=== PATIENT | male | born 1950 | race Caucasian/White ===

== ENCOUNTER 2021-08-26 12:11 | Inpatient (IN) | payer MEDICARE, SELFPAY ==
[2021-08-26] VITALS (16 sets, daily range): BP systolic 127–148; BP diastolic 69–98; PULSE 68–112; RESP 20–28; TEMP 36.6–36.7; O2SAT 92–99; BMI 32.5; BMI 33.5
--- NOTE | 2021-08-26 12:19 | XR_ITS ---
PROCEDURE INFORMATION: Exam: XR Chest Exam date and time: 08/26/2021 12:19 PM Age: 71 years old Clinical indication: Shortness of breath; Prior surgery; Surgery date: 6+ months; Surgery type: Cabg in 1998, defibrillator placed as well. ; Additional info: SOB TECHNIQUE: Imaging protocol: XR of the chest. Views: 1 view. COMPARISON: No relevant prior studies available. FINDINGS: Tubes, catheters and devices: Cardiac rhythm maintenance device is in place. Lungs: Bibasilar airspace opacities, favored to reflect atelectasis. Pleural spaces: No pleural effusion or pneumothorax. Heart/Mediastinum: Cardiomegaly. Bones/joints: Unremarkable. IMPRESSION: Cardiomegaly with bibasilar atelectasis.
--- NOTE | 2021-08-26 12:44 | ECG_ITS ---
APPROVED REPORT Exam: Resting ECG HR:104 bpm ECG Measurements Heart Rate 104 AXES QRSd 114 QRS 92 QT 350 T 43 QTc 460 Conclusion Electronic ventricular pacemaker Electronically signed by : Khanh Scott MD 08/26/2021 20:29:28
[2021-08-26 12:45] LABS: Basophils # 0.1 K/mm3 (0-0.2); Basophils % 0.7 % (0.1-2.0); Hematocrit 45.1 % (42.0-52.0); Hemoglobin 13.5 g/dL (14.1-18.0); Lymphocytes # 1.1 K/mm3 (0.7-4.5); Lymphocytes % 14.8 % (10-50); Mean Corpuscular Hemoglobin 30.9 pg (27.0-31.2); Mean Corpuscular Volume 102.9 fl (80-94); Mean Platelet Volume 8.7 fl (7.4-10.4); Monocytes # 0.6 K/mm3 (0.1-1.0); Monocytes % 8.1 % (1.7-9.3); Neutrophils # 5.7 K/mm3 (1.8-7.8); Neutrophils % 76.4 % (37.0-80.0); Platelet Count 189 K/mm3 (142-424); Red Blood Count 4.39 M/mm3 (4.60-6.20); Red Cell Distribution Width 18.2 % (11.5-17.5); White Blood Count 7.5 K/mm3 (4.8-10.8)
[2021-08-26 12:48] LABS: Chloride 93 mmol/L (98-107); Potassium 4.7 mmoL/L (3.5-5.1); Sodium 135 mmol/L (136-145)
[2021-08-26 12:51] LABS: Alanine Aminotransferase 250 U/L (12-78); Albumin Level 4.4 g/dl (3.5-5.0); Albumin/Globulin Ratio 1.2 (1.1-1.8); Alkaline Phosphatase 107 U/L (38-126); Anion Gap 16.7 mEq/L (5-15); Aspartate Amino Transferase 530 U/L (17-59); Bilirubin,Total 3.4 mg/dl (0.2-1.3); Blood Urea Nitrogen 17 mg/dl (9-20); Calcium 9.1 mg/dl (8.4-10.2); Carbon Dioxide 30 mmol/L (22.0-30.0); Creatinine Clearance Estimated 103 mL/min (50-200); Estimated Glomerular Filt Rate 111 ml/min (>60); GFR (African American) 134 ML/MIN (>60); Globulin 3.6 g/dL (1.3-3.2); Glucose 155 mg/dl (74-100); Lactic Acid 3.3 mmol/L (0.7-2.1)
[2021-08-26 13:00] LABS: NT Pro Brain Natriuretic Pep. 3400 pg/mL (0-125)
[2021-08-26 13:01] LABS: Coronavirus 19, PCR Not Detected (NotDetected); Influenza A, PCR Not Detected (NotDetected); Influenza B, PCR Not Detected (NotDetected)
[2021-08-26 13:04] LABS: Troponin I 0.06 ng/ml (0.00-0.034)
--- NOTE | 2021-08-26 14:32 | HMH.EDGENADL ---
ED Disposition Clinical Impression: Acute exacerbation of chronic obstructive airways disease Disposition: Admitted As Inpatient Condition on Discharge: Fair - Critical Care Critical Care Time: No Attestation: On 08/26/21, the high probability of a clinically significant, sudden or life threatening deterioration of the following system(s) required my full and direct attention, intervention and personal management. The time I documented below is in addition to time spent performing reported procedures but includes the following listed in this critical care notation. Medical Decision Making - Carl Inquiry Pt receiving controlled substance: No Vital Signs: 08/26/21 12:11 Temperature 98 F Temperature Source Oral Pulse Rate [Radial] 108 H Respiratory Rate 28 H Blood Pressure [Right Arm] 138/72 Blood Pressure Mean [Right Arm] 94 Blood Pressure Position [Right Arm] Sitting 02 Sat by Pulse Oximetry 94 L Oxygen Delivery Method Nasal Cannula Oxygen Flow Rate (LPM) 4 - Lab Data Lab Results 08/26/21 12:20: WBC 7.5, RBC 4.39 L, Hgb 13.5 L, Hct 45.1, MCV 102.9 H, MCH 30.9, MCHC 30.0 L, RDW 18.2 H, Plt Count 189, MPV 8.7, Neut % (Auto) 76.4, Lymph % (Auto) 14.8, [place] % (Auto) 8.1, Eos % (Auto) 0.0 L, Baso % (Auto) 0.7, Neut # (Auto) 5.7, Lymph # (Auto) 1.1, [place] # (Auto) 0.6, Eos # (Auto) 0.0, Baso # (Auto) 0.1 08/26/21 12:20: Sodium 135 L, Potassium 4.7, Chloride 93 L, Carbon Dioxide 30, Anion Gap 16.7 H, BUN 17, Creatinine 0.70, Estimated Creat Clear 103, Estimated GFR 111, Est GFR ( Amer) 134, Glucose 155 H, Calcium 9.1, Total Bilirubin 3.4 H, AST 530 H*, ALT 250 H, Alkaline Phosphatase 107, Troponin I 0.06 H, Total Protein 8.0, Albumin 4.4, Globulin 3.6 H, Albumin/Globulin Ratio 1.2 08/26/21 12:20: Lactate 3.3 H 08/26/21 12:20: NT-Pro-B Natriuret Pep 3400 H 08/26/21 12:20: SARS-CoV-2 (PCR) Not detected, Influenza A Untype (PCR) Not detected, Influenza Type B (PCR) Not detected 08/26/21 15:05: Troponin I 0.06 H Result diagrams: 08/26/21 12:20 08/26/21 12:20 Orders (Tests/Meds): ED MEDICATIONS Generic Name Dose Route Start Last Admin Trade Name Freq PRN Reason Stop Dose Admin Ceftriaxone Sodium 2 gm/ 100 mls @ 200 mls/hr 08/26/21 15:15 08/26/21 15:27 Sodium Chloride IV 09/09/21 15:14 200 mls/hr Q24H KEELEY Administration Azithromycin 500 mg/ Sodium 250 mls @ 250 mls/hr 08/26/21 15:15 08/26/21 15:41 Chloride IV 09/09/21 15:14 250 mls/hr Q24H KEELEY Administration Sodium Chloride 500 mls @ 999 mls/hr 08/26/21 16:30 08/26/21 16:43 Sod Chlor 0.9% 1000ml Bag IV 08/26/21 17:00 Not Given .Q31M KEELEY Discontinued Medications Generic Name Dose Route Start Last Admin Trade Name Freq PRN Reason Stop Dose Admin Albuterol/Ipratropium 3 ml 08/26/21 13:29 08/26/21 13:47 Ipratropium/Albuterol 3 Ml Neb IH 08/26/21 13:30 3 ml ONCE ONE Administration Dexamethasone Sodium Phosphate 8 mg 08/26/21 13:28 08/26/21 13:39 Dexamethasone 4mg/Ml 1ml Vial IV 08/26/21 13:29 8 mg ONCE ONE Administration Sodium Chloride 500 mls @ 999 mls/hr 08/26/21 13:30 08/26/21 13:39 Sod Chlor 0.9% 1000ml Bag IV 08/26/21 14:00 999 mls/hr .Q31M KEELEY Administration ORDERS Category Date Time Status Troponin I Q3H Lab 08/26/21 18:30 Ordered Blood Culture Stat Micro 08/26/21 12:20 Received Medical Decision Narrative: In summary, the patient is a 69-year-old male with metabolic syndrome who presents for evaluation of 1 week of progressive difficulty breathing, increased cough and sputum production. He is in no acute distress, afebrile and hemodynamically stable, nontoxic in appearance. Physical exam demonstrates comfortable appearing male with increased work of breathing, tachypnea, 3-5 word dyspnea, oxygen saturation in the upper 80s on room air, prolonged expiratory phase and wheezing, normal cardiac exam, no significant extremity edema, soft and nontender abdomen. Differe
[2021-08-26 16:17] LABS: Troponin I 0.06 ng/ml (0.00-0.034)
[2021-08-26 16:31] LABS: Reflex Lactic Add Lactic Reflex
--- NOTE | 2021-08-26 16:31 | PC.NURSE ---
report called to floor
[2021-08-26 17:10] LABS: Lactic Acid Follow Up (RFLX 1) 1.8 mmol/L (0.7-2.1)
[2021-08-27] VITALS (9 sets, daily range): BP systolic 128–143; BP diastolic 76–91; PULSE 90–101; RESP 19–22; TEMP 36.6–37.2; O2SAT 94–97; BMI 33.5; BMI 33.6
--- NOTE | 2021-08-27 04:10 | PC.NURSE ---
Addendum entered by Lashay Zuñiga RN 08/27/21 04:45: Patient hasn't rested well this shift. He states I haven't slept for the last 4 nights . Patient has remained up and down on the side of the bed all night. He has a intermitting cough that is non-productive. Original Note: Patient is A&O x4. Patient is on 2LNC. Scattered inspiratory and expiratory wheezing is noted in bilateral lung sounds, patient has inspiratory and expiratory rhonchi noted throughout. Patient has voiced no complaints to this RN. Patient reports last BM on 08/25. Patient has +1 pitting edema noted in bilateral lower extremities. VSS, call light within reach, will continue to monitor.
--- NOTE | 2021-08-27 07:23 | HMH.PHAVTE ---
[facility] Pharmacy VTE Monitoring - Patient Demographics Admission date: 08/26/21 Report Date: 08/27/21 Time: 07:23 Allergies/Adverse Reactions: Patient Allergies No Known Allergies Allergy (Verified 08/26/21 12:17) Height: 1.8 m Weight: 108.862 kg Patient Problems: Current Active Problems Acute exacerbation of chronic obstructive airways disease (Acute) - VTE Risk Labs: VTE Related Lab Results Hgb 13.5 g/dL (14.1-18.0) L 08/26/21 12:20 Hct 45.1 % (42.0-52.0) 08/26/21 12:20 Plt Count 189 K/mm3 (142-424) 08/26/21 12:20 BUN 17 mg/dl (9-20) 08/26/21 12:20 Creatinine 0.70 mg/dl (0.66-1.25) 08/26/21 12:20 Estimated Creat Clear 103 mL/min (50-200) 08/26/21 12:20 - Prophylaxis VTE Prophylaxis Ordered?: Yes Types of VTE Prophylaxis: TEDS Knee High Location of Applied Device: Bilateral Lower Extremeties
--- NOTE | 2021-08-27 07:41 | HMH.PHAINT ---
MEDICATION RECONCILIATION COMPLETE USING PATIENT RX BOTTLES BROUGHT IN
--- NOTE | 2021-08-27 10:23 | HMH.CNCARD ---
History of Present Illness Consult date: 08/27/21 Requesting physician: Jimbo Carlos Consult reason: shortness of breath Chief complaint: SOA Additional Medical History:: 1. Coronary artery disease A. History of 6 vessel bypass 1998, [place], [place] at [facility] 2. Ischemic cardiomyopathy A. Ejection fraction approximately 20% B. Dual-chamber AICD implantation approximately 2007 with battery change in 2015 with a [place] generator model CD 2357-40C, Dr. Krystle Macias 3. Tobacco use, continued, 1 to 2 packs/day for greater than 40 years 4. Diabetes mellitus, diagnosed approximately 2017 5. History of bilateral knee replacements 6. Hypertension 7. Hyperlipidemia 8. Obstructive sleep apnea, CPAP use History of present illness: 71-year-old white male with coronary artery disease, ischemic cardiomyopathy and AICD as noted above presented to the emergency department for increasing shortness of breath over the last 7 to 14 days which coincided with receiving a flu shot on 08/16/2021. Patient denies any chest pain, pressure or tightness but has noticed a significant decrease in his exercise ability with an increase in his shortness of breath and lower extremity edema. ER work-up revealed no acute EKG changes (V. Pacing) but with mildly elevated troponin and abnormal chest x-ray suggestive of bilateral pulmonary infiltrates with cardiomegaly. Patient is known to have an ischemic cardiomyopathy with ejection fraction about 20%. Patient was admitted for further evaluation and treatment. Cardiology consulted for evaluation recommendations. He is a former [employer] and is followed by the [facility] in [place] for most of his care. No recent hospitalizations in the last year per patient. Patient lives with his daughter. [facility] History Medical History: Reports:: Congestive Heart Failure, Diabetes Mellitus Type 2 Denies:: Cancer, Diabetes Mellitus Type 1, MRSA *Have you ever received a pneumonia vaccine?: Yes *Have you received a flu vaccine this season?: Yes Other Medical History: Reports: Arthritis Laterality Cases: Bilateral: Total Knee Replacement Other Surgeries: Yes: Open Heart Surgery Amputation: No - *Social History Last grade of school completed: 9th or 10th Smoking Status: Current every day smoker Tobacco Type: cigarettes # Packs/Day (cigarettes): 2 Alcohol Intake: never *Occupational Status:: retired, disabled Household Members: children *Travel in the last 8 weeks: None Family Hx:: No significant family history Meds Home Medications Medication Instructions Recorded Confirmed Type Albuterol Sulfate [Albuterol 1 puff IH Q4HP PRN 08/26/21 08/27/21 History Sulfate Hfa] Aspirin [Aspirin 81mg EC Tab] 81 mg PO DAILY 08/26/21 08/27/21 History Atorvastatin Calcium [Lipitor 80mg 80 mg PO DAILY 08/26/21 08/27/21 History Tab] Buspirone HCl [Buspar 10mg 20 mg PO TID 08/26/21 08/27/21 History tablet] Duloxetine HCl 120 mg PO DAILY 08/26/21 08/27/21 History Empagliflozin [Jardiance] 10 mg PO DAILY 08/26/21 08/27/21 History Famotidine [Heartburn Prevention] 20 mg PO HS 08/26/21 08/27/21 History Furosemide [Furosemide 20mg Tab*] 20 mg PO DAILY 08/26/21 08/27/21 History Gabapentin 800 mg PO HS 08/26/21 08/27/21 History Metformin HCl [Metformin 1000mg 1,000 mg PO BIDWMEAL 08/26/21 08/27/21 History Tablets] Pantoprazole Sodium 20 mg PO DAILY 08/26/21 08/27/21 History Prazosin HCl 15 mg PO HS 08/26/21 08/27/21 History Sennosides/Docusate Sodium 1 each PO BID 08/26/21 08/27/21 History [Docusate Sodium-Sennosides Tab] Tiotropium Br/Olodaterol HCl 1 inh IH DAILY 08/26/21 08/27/21 History [Stiolto Respimat Inhal [place]] Tramadol HCl [Tramadol 50mg 100 mg PO DAILYP PRN 08/26/21 08/27/21 History Tab] Trazodone HCl 200 mg PO HS 08/26/21 08/27/21 History carvediloL [Carvedilol 25mg Tab] 25 mg PO BID 08/26/21 08/27/21 History glipiZIDE [Glipizide] 10 mg PO BID 08/26/21 08/27/21 History lisinopr
--- NOTE | 2021-08-27 10:39 | CT_ITS ---
PROCEDURE: CT ABDOMEN PELVIS W CON CLINICAL INDICATION: abd pain COMPARISON: No exams were available for comparison TECHNIQUE: IV Contrast: 75ML Isovue 370 Oral Contrast None Axial images obtained with sagittal and coronal reformats. All CT scans at the facility use one or more dose reduction, viz: automated exposure control, ma/kV adjustment per patient size (including targeted exams where dose is matched to indication, i.e. head), or iterative reconstruction technique. FINDINGS: LOWER THORAX: Cardiomegaly. ABDOMEN & PELVIS: Hepatomegaly. There is calcific atherosclerosis of the aorta and branch vessels. The celiac SMA and THOMAS are patent. There is a 3.1 centimeter abdominal aortic aneurysm. Kidneys and spleen are unremarkable. There is thickening of the left adrenal gland. Gallbladder appears unremarkable. Appendix appears unremarkable. Bladder is distended but otherwise unremarkable. The stomach appears unremarkable. There is wall thickening of the duodenum and proximal jejunum with fluid and fecalization of the small bowel. There is no definite free intraperitoneal fluid or air. The colon appears unremarkable. The appendix appears unremarkable. The remainder of the small bowel appears unremarkable. There is mild degenerative change of the osseous structures. IMPRESSION: 1. Wall thickening of duodenum and proximal jejunum with fluid and fecalization of the small bowel. This could represent a developing small bowel obstruction, partial small bowel obstruction, Crohn's disease, or infectious enteritis. 2. Thickening of the left adrenal gland. Further evaluation could be obtained with CT adrenal mass protocol or MRI to exclude a mass. 3. Vascular disease with 3.1 centimeter abdominal aortic aneurysm. 4. Hepatomegaly. Findings discussed with Dr. Oconnell at 4:47 p.m. Dictated by: Kelsi Fletcher MD 08/27/2021 16:48 Kelsi Fletcher MD in [place] 08/27/2021 16:48
[2021-08-27 10:43] LABS: Basophils % 0.2 % (0.1-2.0); Eosinophils % 0.4 % (0.1-12.0); Hematocrit 41.5 % (42.0-52.0); Hemoglobin 12.9 g/dL (14.1-18.0); Lymphocytes # 1.4 K/mm3 (0.7-4.5); Lymphocytes % 14.9 % (10-50); Mean Corpuscular Hemoglobin 31.4 pg (27.0-31.2); Mean Corpuscular Volume 101.3 fl (80-94); Mean Platelet Volume 9.1 fl (7.4-10.4); Monocytes # 0.9 K/mm3 (0.1-1.0); Monocytes % 9.6 % (1.7-9.3); Neutrophils # 7.1 K/mm3 (1.8-7.8); Neutrophils % 74.9 % (37.0-80.0); Platelet Count 201 K/mm3 (142-424); Red Cell Distribution Width 18.3 % (11.5-17.5); White Blood Count 9.4 K/mm3 (4.8-10.8)
[2021-08-27 10:50] LABS: Chloride 98 mmol/L (98-107); Potassium 5.1 mmoL/L (3.5-5.1); Sodium 132 mmol/L (136-145)
[2021-08-27 10:53] LABS: Alanine Aminotransferase 546 U/L (12-78); Albumin/Globulin Ratio 1.1 (1.1-1.8); Alkaline Phosphatase 98 U/L (38-126); Anion Gap 14.1 mEq/L (5-15); Bilirubin,Total 2.5 mg/dl (0.2-1.3); Blood Urea Nitrogen 33 mg/dl (9-20); Carbon Dioxide 25 mmol/L (22.0-30.0); Creatinine Clearance Estimated 103 mL/min (50-200); Estimated Glomerular Filt Rate 111 ml/min (>60); GFR (African American) 134 ML/MIN (>60); Globulin 3.5 g/dL (1.3-3.2); Total Protein,Serum 7.5 g/dl (6.3-8.2)
[2021-08-27 10:54] LABS: Calcium 8.9 mg/dl (8.4-10.2); Glucose 150 mg/dl (74-100)
[2021-08-27 11:00] LABS: Aspartate Amino Transferase 833 U/L (17-59)
--- NOTE | 2021-08-27 12:28 | HMH.HP ---
*Admission Date: 08/26/21 *Chief complaint: soa *History of present illness: 71-year-old male with hx of coronary artery disease, ischemic cardiomyopathy and AICD presented to the emergency department for increasing shortness of breath over the last 2 weeks. Patient denies any chest pain, pressure or tightness but has noticed a significant decrease in his exercise ability with an increase in his shortness of breath and lower extremity edema.Patient states edema improves if he elevates his legs. Patient was admitted for further evaluation and treatment. Patient states all his care he receives at the [place] History I have reviewed the patient's past medical history: Yes Medical History: Reports:: Congestive Heart Failure, Diabetes Mellitus Type 2 Denies:: Cancer, Diabetes Mellitus Type 1, MRSA *Have you ever received a pneumonia vaccine?: Yes *Have you received a flu vaccine this season?: Yes Other Medical History: Reports: Arthritis Laterality Cases: Bilateral: Total Knee Replacement Other Surgeries: Yes: Open Heart Surgery Amputation: No - *Social History Last grade of school completed: 9th or 10th Smoking Status: Current every day smoker Tobacco Type: cigarettes # Packs/Day (cigarettes): 2 Alcohol Intake: never *Occupational Status:: retired, disabled Household Members: children *Travel in the last 8 weeks: None Family Hx:: No significant family history Review of Systems - Review of Systems Review of systems:: pertinent systems reviewed and negative unless documented below - Constitutional Reports fatigue, Reports weakness, Denies body ache(s) - Eyes Denies loss of vision - ENT Denies dizziness - *Cardiovascular Reports shortness of breath, Reports shortness of breath with activity - *Respiratory Reports shortness of breath, Reports shortness of breath with activity, Denies change in phlegm color - *Gastrointestinal Denies loose stools - *Genitourinary Denies difficulty urinating - *Musculoskeletal Denies joint pain - *Neurologic Denies tremor(s) - Psychiatric Denies anxiety - Endocrine Denies excessive sweating - Hematologic/Lymphatic Denies easy bruising - Allergic/Immunologic Denies itchy eyes Meds Home Medications Medication Instructions Recorded Confirmed Type Albuterol Sulfate [Albuterol 1 puff IH Q4HP PRN 08/26/21 08/27/21 History Sulfate Hfa] Aspirin [Aspirin 81mg EC Tab] 81 mg PO DAILY 08/26/21 08/27/21 History Atorvastatin Calcium [Lipitor 80mg 80 mg PO DAILY 08/26/21 08/27/21 History Tab] Buspirone HCl [Buspar 10mg 20 mg PO TID 08/26/21 08/27/21 History tablet] Duloxetine HCl 120 mg PO DAILY 08/26/21 08/27/21 History Empagliflozin [Jardiance] 10 mg PO DAILY 08/26/21 08/27/21 History Famotidine [Heartburn Prevention] 20 mg PO HS 08/26/21 08/27/21 History Furosemide [Furosemide 20mg Tab*] 20 mg PO DAILY 08/26/21 08/27/21 History Gabapentin 800 mg PO HS 08/26/21 08/27/21 History Metformin HCl [Metformin 1000mg 1,000 mg PO BIDWMEAL 08/26/21 08/27/21 History Tablets] Pantoprazole Sodium 20 mg PO DAILY 08/26/21 08/27/21 History Prazosin HCl 15 mg PO HS 08/26/21 08/27/21 History Sennosides/Docusate Sodium 1 each PO BID 08/26/21 08/27/21 History [Docusate Sodium-Sennosides Tab] Tiotropium Br/Olodaterol HCl 1 inh IH DAILY 08/26/21 08/27/21 History [Stiolto Respimat Inhal [place]] Tramadol HCl [Tramadol 50mg 100 mg PO DAILYP PRN 08/26/21 08/27/21 History Tab] Trazodone HCl 200 mg PO HS 08/26/21 08/27/21 History carvediloL [Carvedilol 25mg Tab] 25 mg PO BID 08/26/21 08/27/21 History glipiZIDE [Glipizide] 10 mg PO BID 08/26/21 08/27/21 History lisinopriL [Lisinopril] 40 mg PO DAILY 08/26/21 08/27/21 History Nicotine [Nicotine Patch 21 mg TD DAILY 08/27/21 08/27/21 History 21mg/24hrs] Allergies Allergy/AdvReac Type Severity Reaction Status Date / Time No Known Allergies Allergy Verified 08/26/21 12:17 Exam Vital signs
--- NOTE | 2021-08-27 18:13 | PC.NURSE ---
NO ACUTE CHANGES. AOX4, HAS SAT ON SIDE OF BED T/O MOST PF SHIFT, HE HAS TOLERATED PO INTAKE WELL, HAS NOT C/O PAIN THIS SHIFT, 2LNC FOR O2 SUPPORT, DENIES N/V/D. SPOKE WITH DR BECKHAM REGARDING CONSULT AND HE IS TO SEE PT TOMORROW. HE DID NOT GIVE THIS RN ANY NEW ORDERS. USES URINAL INDEPENDENTLY.
[2021-08-28] VITALS (9 sets, daily range): BP systolic 110–138; BP diastolic 61–78; PULSE 57–118; RESP 16–19; TEMP 36.3–37; O2SAT 91–97; BMI 27.1
--- NOTE | 2021-08-28 04:32 | PC.NURSE ---
Patient is alert and oriented x4. He has appeared to have rested well this RN's shift. Patient has voiced no complaints to this RN. He has had adequate output this shift with clear, yellow urine noted in the urinal. Patient has expiratory wheezing noted upon auscultation. He has remained afebrile this shift. He remains on 2LNC with oxygen saturation >90%. Bowel sounds are active in all quadrants, patient denies pain or nausea. Abdomen in round, soft and non-tender. VSS, call light within reach, will continue to monitor.
--- NOTE | 2021-08-28 06:22 | HMH.GSCON ---
*Admission Date: 08/26/21 *Reason for consult:: Abnormal CT *History of present illness: Patient is a 71-year-old male with past medical history including coronary artery disease, ischemic cardiomyopathy, AICD placement, hypertension, hyperlipidemia, COPD. He presented to the emergency department on 08/26/2021 with a 10-day history of progressively worsening cough, shortness of air, increased sputum production, wheezing. At the time of initial evaluation he denied abdominal pain, nausea, or vomiting. He was brought to the emergency department by EMS with some hypoxia characterized by low oxygen saturations in the 80s. He was evaluated and treated in the emergency department. He did have improvement in his respiratory status. Laboratory analysis revealed mild troponin elevation. Patient did show oxygen desaturation when oxygen was removed. Therefore, patient was admitted for inpatient management of COPD exacerbation with oxygen requirement. Due to some abdominal complaints patient underwent CT scan on 08/27/2021. This revealed wall thickening of the duodenum and proximal jejunum with fluid and fecalization of the small bowel which was felt to possibly represent developing small bowel obstruction versus Crohn's disease versus infectious enteritis. Surgical consultation was ordered for these abnormal CT scan findings in the evening of 08/27/2021. Of note, the patient has notable elevation of liver function tests. This morning the patient denies abdominal pain. Review of Systems - Review of Systems Review of systems:: unable to obtain - *Neurologic Reports weakness, Denies dizziness, Denies loss of vision, Denies tremor(s) [facility] History I have reviewed the patient's past medical history: Yes Medical History: Reports:: Congestive Heart Failure, Diabetes Mellitus Type 2 Denies:: Cancer, Diabetes Mellitus Type 1, MRSA *Have you ever received a pneumonia vaccine?: Yes *Have you received a flu vaccine this season?: Yes Other Medical History: Reports: Arthritis Laterality Cases: Bilateral: Total Knee Replacement Other Surgeries: Yes: Open Heart Surgery Amputation: No - *Social History Last grade of school completed: 9th or 10th Smoking Status: Current every day smoker Tobacco Type: cigarettes # Packs/Day (cigarettes): 2 Alcohol Intake: never *Occupational Status:: retired, disabled Household Members: children *Travel in the last 8 weeks: None Family Hx:: No significant family history Meds Home Medications Medication Instructions Recorded Confirmed Type Albuterol Sulfate [Albuterol 1 puff IH Q4HP PRN 08/26/21 08/27/21 History Sulfate Hfa] Aspirin [Aspirin 81mg EC Tab] 81 mg PO DAILY 08/26/21 08/27/21 History Atorvastatin Calcium [Lipitor 80mg 80 mg PO DAILY 08/26/21 08/27/21 History Tab] Buspirone HCl [Buspar 10mg 20 mg PO TID 08/26/21 08/27/21 History tablet] Duloxetine HCl 120 mg PO DAILY 08/26/21 08/27/21 History Empagliflozin [Jardiance] 10 mg PO DAILY 08/26/21 08/27/21 History Famotidine [Heartburn Prevention] 20 mg PO HS 08/26/21 08/27/21 History Furosemide [Furosemide 20mg Tab*] 20 mg PO DAILY 08/26/21 08/27/21 History Gabapentin 800 mg PO HS 08/26/21 08/27/21 History Metformin HCl [Metformin 1000mg 1,000 mg PO BIDWMEAL 08/26/21 08/27/21 History Tablets] Pantoprazole Sodium 20 mg PO DAILY 08/26/21 08/27/21 History Prazosin HCl 15 mg PO HS 08/26/21 08/27/21 History Sennosides/Docusate Sodium 1 each PO BID 08/26/21 08/27/21 History [Docusate Sodium-Sennosides Tab] Tiotropium Br/Olodaterol HCl 1 inh IH DAILY 08/26/21 08/27/21 History [Stiolto Respimat Inhal [place]] Tramadol HCl [Tramadol 50mg 100 mg PO DAILYP PRN 08/26/21 08/27/21 History Tab] Trazodone HCl 200 mg PO HS 08/26/21 08/27/21 History carvediloL [Carvedilol 25mg Tab] 25 mg PO BID 08/26/21 08/27/21 History glipiZIDE [Glipizide] 10 mg PO BID 08/26/21 08/27/21 History lisinopriL [Lisinopril] 40 mg PO DAILY 08/26/21 08/27/21 Hist
--- NOTE | 2021-08-28 06:33 | US_ITS ---
PROCEDURE: US GALLBLADDER CLINICAL INDICATION: ABDOMINAL PAIN, ELEVATED LFTs COMPARISON: CT CT ABDOMEN PELVIS W CON from 08/27/2021 FINDINGS: Pancreas: Unremarkable/Not well seen due to intervening bowel gas. Liver: Unremarkable. There is appropriate direction of blood flow within a non dilated portal vein. There is slightly increased and somewhat coarsened appearing echogenicity of the liver parenchyma suggesting fatty infiltration. There are no focal lesions. Right kidney: Unremarkable appearing. No hydronephrosis. The right kidney measures 11.8 x 4.8 by 6.2 cm and appears sonographically normal. Gallbladder: No stones are evident. There is no gallbladder wall thickening. There is minimal biliary sludge layering along the dependent wall. The common bile duct measures 0.5 cm IMPRESSION: 1. Minimal biliary sludge, no gallstones seen 2. Mild diffuse hepatic steatosis Dictated by: Dr. Paulo Petty MD 08/28/2021 09:39 Dr. Paulo Petty MD in [place] 08/28/2021 09:39
[2021-08-28 06:37] LABS: Chloride 99 mmol/L (98-107); Potassium 3.8 mmoL/L (3.5-5.1); Sodium 138 mmol/L (136-145)
[2021-08-28 06:40] LABS: Basophils % 0.3 % (0.1-2.0); Blood Urea Nitrogen 33 mg/dl (9-20); Creatinine Clearance Estimated 83 mL/min (50-200); Eosinophils % 0.2 % (0.1-12.0); Estimated Glomerular Filt Rate 111 ml/min (>60); GFR (African American) 134 ML/MIN (>60); Hematocrit 40.5 % (42.0-52.0); Hemoglobin 12.5 g/dL (14.1-18.0); Lymphocytes # 1.4 K/mm3 (0.7-4.5); Mean Corpuscular HGB Conc 30.7 g/dL (31.8-35.4); Mean Corpuscular Volume 100.9 fl (80-94); Mean Platelet Volume 8.5 fl (7.4-10.4); Monocytes # 0.6 K/mm3 (0.1-1.0); Monocytes % 7.7 % (1.7-9.3); Neutrophils # 5.4 K/mm3 (1.8-7.8); Neutrophils % 72.7 % (37.0-80.0); Platelet Count 193 K/mm3 (142-424); Red Blood Count 4.02 M/mm3 (4.60-6.20); Red Cell Distribution Width 18.7 % (11.5-17.5); White Blood Count 7.4 K/mm3 (4.8-10.8)
[2021-08-28 06:41] LABS: Anion Gap 9.8 mEq/L (5-15); Calcium 8.9 mg/dl (8.4-10.2); Carbon Dioxide 33 mmol/L (22.0-30.0); Glucose 107 mg/dl (74-100)
[2021-08-28 07:05] LABS: Amylase 46 U/L (30-110)
[2021-08-28 07:06] LABS: Lipase 22 U/L (23-300)
[2021-08-28 07:33] LABS: Alanine Aminotransferase 455 U/L (12-78); Albumin Level 3.4 g/dl (3.5-5.0); Alkaline Phosphatase 100 U/L (38-126); Aspartate Amino Transferase 488 U/L (17-59); Bilirubin,Direct 1.2 mg/dl (0.0-0.4); Bilirubin,Indirect 0.6 mg/dL (0.0-0.9); Bilirubin,Total 1.8 mg/dl (0.2-1.3); Bilirubin,Unconjugated 0.6 mg/dL (0.0-1.1); Total Protein,Serum 6.6 g/dl (6.3-8.2)
--- NOTE | 2021-08-28 09:21 | HMH.PNCARD ---
Subjective Date: 08/28/21 Time: 09:21 Principal diagnosis: COPD, CHF, CAD, CM, AICD, elevated LFT's Interval history: 71-year-old white male sitting at bedside in no acute distress. His breathing has improved but he still has some conversational dyspnea. Significant urine output yesterday after IV Lasix given. Liver functions still elevated but markedly improved. Exam Vital signs and Labs for Last 24 Hours: Temp Pulse Resp BP Pulse Ox 97.3 F L 76 16 117/73 97 08/28/21 04:00 08/28/21 08:00 08/28/21 04:00 08/28/21 04:00 08/28/21 06:14 Laboratory Results - last 24 hr 08/27/21 10:30: Sodium 132 L, Potassium 5.1, Chloride 98, Carbon Dioxide 25, Anion Gap 14.1, BUN 33 H D, Creatinine 0.70, Estimated Creat Clear 103, Estimated GFR 111, Est GFR ( Amer) 134, Glucose 150 H, Calcium 8.9, Total Bilirubin 2.5 H, AST 833 H* D, ALT 546 H*, Alkaline Phosphatase 98, Total Protein 7.5, Albumin 4.0, Globulin 3.5 H, Albumin/Globulin Ratio 1.1 08/27/21 10:30: WBC 9.4 D, RBC 4.10 L, Hgb 12.9 L, Hct 41.5 L, MCV 101.3 H, MCH 31.4 H, MCHC 31.0 L, RDW 18.3 H, Plt Count 201, MPV 9.1, Neut % (Auto) 74.9, Lymph % (Auto) 14.9, [place] % (Auto) 9.6 H, Eos % (Auto) 0.4, Baso % (Auto) 0.2, Neut # (Auto) 7.1, Lymph # (Auto) 1.4, [place] # (Auto) 0.9, Eos # (Auto) 0.0, Baso # (Auto) 0.0 08/28/21 06:00: WBC 7.4, RBC 4.02 L, Hgb 12.5 L, Hct 40.5 L, MCV 100.9 H, MCH 31.0, MCHC 30.7 L, RDW 18.7 H, Plt Count 193, MPV 8.5, Neut % (Auto) 72.7, Lymph % (Auto) 19.0, [place] % (Auto) 7.7, Eos % (Auto) 0.2, Baso % (Auto) 0.3, Neut # (Auto) 5.4, Lymph # (Auto) 1.4, [place] # (Auto) 0.6, Eos # (Auto) 0.0, Baso # (Auto) 0.0 08/28/21 06:00: Sodium 138, Potassium 3.8 D, Chloride 99, Carbon Dioxide 33 H, Anion Gap 9.8, BUN 33 H, Creatinine 0.70, Estimated Creat Clear 83, Estimated GFR 111, Est GFR ( Amer) 134, Glucose 107 H D, Calcium 8.9 08/28/21 06:00: Amylase 46, Lipase 22 L 08/28/21 06:00: Total Bilirubin 1.8 H, Direct Bilirubin 1.2 H, Conjugated Bilirubin 0.0, Indirect Bilirubin 0.6, Unconjugated Bilirubin 0.6, AST 488 H* D, ALT 455 H*, Alkaline Phosphatase 100, Total Protein 6.6, Albumin 3.4 L D I & O for Last 24 hours: Intake & Output 08/25/21 08/26/21 08/27/21 08/28/21 11:59 11:59 11:59 11:59 Intake Total 840 / 840 480 / 480 Output Total 1225 / 1225 6800 / 6800 Balance -385 / -385 -6320 / -6320 Weight 240 lb 4.862 oz 193 lb 12.8 oz Microbiology Reports for the Last 24 Hours: Microbiology 08/26/21 12:20 Blood Blood Culture - Preliminary - Constitutional no acute distress - *Routine HEENT Exam Head: Present: normocephalic Eye: Present: EOMI, PERRL ENT: Present: mucous membranes moist - *Routine Neck Exam Present: supple. Absent: lymphadenopathy - *Routine Respiratory Exam Present: rhonchi, diminished air movement - *Routine Cardiovascular Exam Present: RRR, murmur - *Routine Abdominal Exam Present: soft, normoactive bowel sounds. Absent: tenderness - *Routine Extremities Exam Absent: cyanosis, clubbing, edema - *Routine Skin Exam Present: warm. Absent: rash - *Routine Neurological Exam Present: alert, oriented X3 Progress Note: A&P (1) Acute exacerbation of chronic obstructive airways disease Status: Acute (2) Pulmonary infiltrates on CXR Status: Acute (3) Ischemic cardiomyopathy with implantable cardioverter-defibrillator (ICD) Status: Acute (4) Hypertension Status: Acute (5) Hyperlipidemia Status: Acute (6) Diabetes mellitus type 2 in obese Status: Acute (7) Obstructive sleep apnea Status: Acute (8) Cardiac murmur, unspecified Status: Acute (9) Acute on chronic systolic congestive heart failure, NYHA class 4 Status: Acute (10) Elevated liver function tests Status: Acute (11) Agent orange exposure Status: Acute Assessment and Plan for All Diagnoses:: 1. Shortness of breath, multifactorial 2. Acute on chronic COPD exacerbation, treatment per
--- NOTE | 2021-08-28 19:29 | PC.NURSE ---
PT HAS SAT UP TO CHAIR OR ON SIDE OF BED ALL SHIFT, HIS VS HAVE BEEN STABLE. TOLERATING PO INTAKE WELL, DENIES N/V/D AND PAIN, STANDBY ASSIST WITH AMBULATION. USES URINAL IN CHAIR OR BED. DID SLEEP SOME THIS SHIFT.
[2021-08-29] VITALS (8 sets, daily range): BP systolic 101–132; BP diastolic 69–74; PULSE 75–118; RESP 19–22; TEMP 36.5–36.9; O2SAT 83–95; BMI 27.1
--- NOTE | 2021-08-29 04:03 | PC.NURSE ---
pt A&Ox4, has been up to chair t/o most of shift, remains on 2L NC with O2 sats 92-95%, no complaints of pain or SOA this shift
--- NOTE | 2021-08-29 05:37 | HMH.ACPN2 ---
Internal Medicine - PN: Subj *Date: 08/28/21 *Time: 08:00 Interval history: feels better- Exam Vital signs and Labs for Last 24 Hours: Temp Pulse Resp BP Pulse Ox 97.7 F 75 20 109/69 L 95 08/29/21 04:00 08/29/21 04:00 08/29/21 04:00 08/29/21 04:00 08/29/21 04:00 Laboratory Results - last 24 hr 08/28/21 06:00: WBC 7.4, RBC 4.02 L, Hgb 12.5 L, Hct 40.5 L, MCV 100.9 H, MCH 31.0, MCHC 30.7 L, RDW 18.7 H, Plt Count 193, MPV 8.5, Neut % (Auto) 72.7, Lymph % (Auto) 19.0, [place] % (Auto) 7.7, Eos % (Auto) 0.2, Baso % (Auto) 0.3, Neut # (Auto) 5.4, Lymph # (Auto) 1.4, [place] # (Auto) 0.6, Eos # (Auto) 0.0, Baso # (Auto) 0.0 08/28/21 06:00: Sodium 138, Potassium 3.8 D, Chloride 99, Carbon Dioxide 33 H, Anion Gap 9.8, BUN 33 H, Creatinine 0.70, Estimated Creat Clear 83, Estimated GFR 111, Est GFR ( Amer) 134, Glucose 107 H D, Calcium 8.9 08/28/21 06:00: Amylase 46, Lipase 22 L 08/28/21 06:00: Total Bilirubin 1.8 H, Direct Bilirubin 1.2 H, Conjugated Bilirubin 0.0, Indirect Bilirubin 0.6, Unconjugated Bilirubin 0.6, AST 488 H* D, ALT 455 H*, Alkaline Phosphatase 100, Total Protein 6.6, Albumin 3.4 L D I & O for Last 24 hours: Intake & Output 08/26/21 08/27/21 08/28/21 08/29/21 11:59 11:59 11:59 11:59 Intake Total 840 / 840 480 / 480 840 / 840 Output Total 1225 / 1225 6800 / 6800 1200 / 1200 Balance -385 / -385 -6320 / -6320 -360 / -360 Weight 240 lb 4.862 oz 193 lb 12.8 oz 193 lb 12 oz Microbiology Reports for the Last 24 Hours: Microbiology 08/26/21 12:20 Blood Blood Culture - Preliminary NO GROWTH AFTER 48 HOURS 08/26/21 12:20 Blood Blood Culture - Preliminary - Constitutional no acute distress - *Routine HEENT Exam Head: Present: normocephalic Eye: Present: EOMI, PERRL ENT: Present: mucous membranes dry - *Routine Neck Exam Absent: JVD - *Routine Respiratory Exam Present: CTA bilaterally - *Routine Cardiovascular Exam Present: RRR - *Routine Abdominal Exam Present: soft - *Routine Extremities Exam Present: edema. Absent: calf tenderness - *Routine Skin Exam Present: intact - *Routine Neurological Exam Present: alert, CN II-XII intact - Routine Psychiatric Exam Present: cooperative Assessment and Plan (1) Acute exacerbation of chronic obstructive airways disease Status: Acute Category: Medical Code(s): J44.1 - Chronic obstructive pulmonary disease with (acute) exacerbation (2) Pulmonary infiltrates on CXR Status: Acute Category: Medical Code(s): R91.8 - Other nonspecific abnormal finding of lung field (3) Ischemic cardiomyopathy with implantable cardioverter-defibrillator (ICD) Status: Acute Category: Medical Code(s): I25.5 - Ischemic cardiomyopathy; Z95.810 - Presence of automatic (implantable) cardiac defibrillator (4) Hypertension Status: Acute Category: Medical Code(s): I10 - Essential (primary) hypertension (5) Hyperlipidemia Status: Acute Category: Medical Code(s): E78.5 - Hyperlipidemia, unspecified (6) Diabetes mellitus type 2 in obese Status: Acute Category: Medical Code(s): E11.69 - Type 2 diabetes mellitus with other specified complication; E66.9 - Obesity, unspecified (7) Obstructive sleep apnea Status: Acute Category: Medical Code(s): G47.33 - Obstructive sleep apnea (adult) (pediatric) (8) Cardiac murmur, unspecified Status: Acute Category: Medical Code(s): R01.1 - Cardiac murmur, unspecified (9) Acute on chronic systolic congestive heart failure, NYHA class 4 Status: Acute Category: Medical Code(s): I50.23 - Acute on chronic systolic (congestive) heart failure (10) Elevated liver function tests Status: Acute Category: Medical Code(s): R79.89 - Other specified abnormal findings of blood chemistry (11) Agent orange exposure Status: Acute Category: Medical Code(s): Z77.098 - Contact with and (suspected) exposure to other hazardous, chi
--- NOTE | 2021-08-29 07:01 | P.PN_ITS ---
Subjective Patient reports: feels better Narrative: Patient feels better. Gallbladder ultrasound unremarkable. Progress Note: A&P (1) Acute exacerbation of chronic obstructive airways disease Status: Acute (2) Pulmonary infiltrates on CXR Status: Acute (3) Ischemic cardiomyopathy with implantable cardioverter-defibrillator (ICD) Status: Acute (4) Hypertension Status: Acute (5) Hyperlipidemia Status: Acute (6) Diabetes mellitus type 2 in obese Status: Acute (7) Obstructive sleep apnea Status: Acute (8) Cardiac murmur, unspecified Status: Acute (9) Acute on chronic systolic congestive heart failure, NYHA class 4 Status: Acute (10) Elevated liver function tests Status: Acute (11) Agent orange exposure Status: Acute Assessment and Plan for All Diagnoses:: I will go ahead and start a diet. Exam Vital signs and Labs for Last 24 Hours: Temp Pulse Resp BP Pulse Ox 97.7 F 90 20 109/69 L 91 L 08/29/21 04:00 08/29/21 06:25 08/29/21 04:00 08/29/21 04:00 08/29/21 06:25 Laboratory Results - last 24 hr 08/28/21 06:00: WBC 7.4, RBC 4.02 L, Hgb 12.5 L, Hct 40.5 L, MCV 100.9 H, MCH 31.0, MCHC 30.7 L, RDW 18.7 H, Plt Count 193, MPV 8.5, Neut % (Auto) 72.7, Lymph % (Auto) 19.0, [place] % (Auto) 7.7, Eos % (Auto) 0.2, Baso % (Auto) 0.3, Neut # (Auto) 5.4, Lymph # (Auto) 1.4, [place] # (Auto) 0.6, Eos # (Auto) 0.0, Baso # (Auto) 0.0 08/28/21 06:00: Amylase 46, Lipase 22 L 08/28/21 06:00: Total Bilirubin 1.8 H, Direct Bilirubin 1.2 H, Conjugated Bilirubin 0.0, Indirect Bilirubin 0.6, Unconjugated Bilirubin 0.6, AST 488 H* D, ALT 455 H*, Alkaline Phosphatase 100, Total Protein 6.6, Albumin 3.4 L D I & O for Last 24 hours: Intake & Output 10/08/27/21 08/28/21 08/29/21 11:59 11:59 11:59 11:59 Intake Total 840 / 840 480 / 480 840 / 840 Output Total 1225 / 1225 6800 / 6800 1200 / 1200 Balance -385 / -385 -6320 / -6320 -360 / -360 Weight 240 lb 4.862 oz 193 lb 12.8 oz 193 lb 12 oz Microbiology Reports for the Last 24 Hours: Microbiology 08/26/21 12:20 Blood Blood Culture - Preliminary NO GROWTH AFTER 48 HOURS 08/26/21 12:20 Blood Blood Culture - Preliminary - *Routine Abdominal Exam Present: soft
[2021-08-29 08:25] LABS: Basophils % 0.4 % (0.1-2.0); Eosinophils % 0.6 % (0.1-12.0); Hematocrit 44.2 % (42.0-52.0); Hemoglobin 13.2 g/dL (14.1-18.0); Lymphocytes # 1.2 K/mm3 (0.7-4.5); Lymphocytes % 19.1 % (10-50); Mean Corpuscular HGB Conc 29.9 g/dL (31.8-35.4); Mean Corpuscular Hemoglobin 30.6 pg (27.0-31.2); Mean Corpuscular Volume 102.4 fl (80-94); Mean Platelet Volume 8.5 fl (7.4-10.4); Monocytes # 0.6 K/mm3 (0.1-1.0); Monocytes % 10.1 % (1.7-9.3); Neutrophils # 4.4 K/mm3 (1.8-7.8); Neutrophils % 69.9 % (37.0-80.0); Platelet Count 216 K/mm3 (142-424); Red Blood Count 4.31 M/mm3 (4.60-6.20); Red Cell Distribution Width 18.5 % (11.5-17.5); White Blood Count 6.3 K/mm3 (4.8-10.8)
[2021-08-29 08:35] LABS: Chloride 99 mmol/L (98-107); Potassium 4.3 mmoL/L (3.5-5.1); Sodium 142 mmol/L (136-145)
[2021-08-29 08:38] LABS: Blood Urea Nitrogen 23 mg/dl (9-20); Creatinine Clearance Estimated 83 mL/min (50-200); Estimated Glomerular Filt Rate 132 ml/min (>60); GFR (African American) 160 ML/MIN (>60)
[2021-08-29 08:39] LABS: Anion Gap 10.3 mEq/L (5-15); Calcium 8.9 mg/dl (8.4-10.2); Carbon Dioxide 37 mmol/L (22.0-30.0); Glucose 125 mg/dl (74-100)
[2021-08-29 09:23] LABS: Alanine Aminotransferase 380 U/L (12-78); Bilirubin,Unconjugated 0.7 mg/dL (0.0-1.1)
[2021-08-29 09:24] LABS: Albumin Level 3.6 g/dl (3.5-5.0); Alkaline Phosphatase 104 U/L (38-126); Aspartate Amino Transferase 265 U/L (17-59); Bilirubin,Indirect 0.7 mg/dL (0.0-0.9); Bilirubin,Total 1.7 mg/dl (0.2-1.3); Total Protein,Serum 7.2 g/dl (6.3-8.2)
--- NOTE | 2021-08-29 09:48 | HMH.OTEV ---
OT Inpatient Evaluation Rehab OT IP Evaluation Start: 08/29/21 08:47 Freq: ONCE Status: Complete Protocol: Document 08/29/21 09:45 TAISHA (Rec: 08/29/21 09:48 [id number] Rehab OT IP Assessment Subjective History Pt oriented x 3 on arrival. Pt agreeable to engage in therapy evaluation. Pt was admitted via ED on 08/26/21 due to COPD exacerbation. Pt has a past medical history of Congestive Heart Failure, Diabetes Mellitus Type 2. Pt reports prior to being hospitalized he lived with his family (daughter, son in law, and grandson). Pt claims he was independent with ADLs. He did use a walker or cane at times during ambulation. He was dependent upon family for completion of all IADLs. Subjective I am ready to go home today. Objective Patient Orientation Person,Place,Birthday Upper Extremity Gross ROM WFL Bed Mobility bed mobility-scooting,bed mobility - supine/sit,bed mobility - rolling Assist Level Supervision/Stand by Transfer Training Sit/Stand Transfer Assist Level Supervision/Stand by Chair Transfer Ability Supervision/Stand by Chair Transfer Technique Sit to/from Ambulatory Rehab OT IP prob,goals,plan Problems Date of Evaluation: 08/29/21 Rehab Potential Rehab Potential Innapropriate for Skilled Therapy Discharge Plan OT Discharge Plan Pt appears to be at baseline at this time functionally. Pt can return home with family supervision/assistance once medically stable per physician . Eval Complexity Eval Charge Codes 75474 - Moderate Complexity G Codes G -code Required No PHYSICIAN CERTIFICATION: I certify the specified therapy services for Chun Guillory are required, authorized, and reviewed every 30 days.
--- NOTE | 2021-08-29 09:55 | DIET.NUTRFU ---
Pt states he has no nutritional concerns at this time. He is on a bland/ada diet. PO intakes 50%, weight stable, BG moderate avg. 125, Liver enzymes remain elevated but improved.
--- NOTE | 2021-08-29 10:16 | SW/DCPLANNER ---
Addendum entered by Keeley Bose 08/29/21 10:31: Noemi Andre has stated that portable O2 will be delivered to patients room today. Original Note: Patient information/order has been faxed to [facility] for home O2 and portable o2 tank. I will follow up with Jes once patient information is reviewed. Patient will discharge home later today.
--- NOTE | 2021-08-29 10:28 | HMH.PTEV ---
Physical Therapy Evaluation Rehab PT IP Evaluation Start: 08/29/21 08:45 Freq: ONCE Status: Active Protocol: Document 08/29/21 10:10 CIRILOAMADA (Rec: 08/29/21 10:27 NOEMI [id number]) Subjective/History History History This is the initial evaluation for Chun Guillory. Pt is a 71 y/o male admitted to [facility] for SOA. Pt has a hx of coronary artery disease, ischemic cardiomyopathy, and AICD. Pt denied any chest pain but did have LE swelling and increased exercise intolerance. Pt is now stable and under supervision. Pt is stable upon arrival and sitting in chair with supplemental O2. - note done by Jennifer Hoang, SPT Subjective Subjective Pt states he lives at home with his daughter and grandson . Pt reports that he was independent in all his ADL's before this medical episode. Pt states he usually drives around to get anywhere due to fatigue, but if he does walk anywhere, he uses a cane. He reports he has other AD's such as a walker but he only used that for previous TKA's. Pt reports he does use a CPAP but does not use supplemental O2 during the day. Rehab PT IP Eval Objective Appearance Patient Behavior Appropriate,Cooperative Patient Orientation Person,Place,Name,Birthday, Year Difficulty following instructions none Speech Pattern Clear,Appropriate,Coherent, Monotone,Mumbled Ambulation Patient Able to Ambulate Yes Ambulation Observation IP General Gait Pattern Observation No Deviations/Normal Ambulation Distance (feet) 20 Ambulation Assistive Device None Ambulation Ability Supervision/Stand by Balance Ability to Arise Able, uses arms to help Sitting Balance Steady, safe Standing Balance Narrow stance w/o support Dynamic Sitting Balance Ability Normal Dynamic Standing Balance Ability Normal Transfers Chair Transfer Ability Supervision/Stand by Sit to Stand Chair Transfer Ability Supervision/Stand by Re
--- NOTE | 2021-08-29 10:51 | HMH.PNCARD ---
Subjective Date: 08/29/21 Time: 10:51 Principal diagnosis: COPD, CHF, CAD, CM, AICD, elevated LFT's Interval history: 71-year-old white male sitting in bedside chair in no acute distress. He continues to express that he is breathing and feeling better daily. Lower extremity edema has improved. Gallbladder ultrasound yesterday was unremarkable. His liver functions continue to improve as well. Exam Vital signs and Labs for Last 24 Hours: Temp Pulse Resp BP Pulse Ox 98.4 F 118 H 22 132/74 83 L 08/29/21 08:00 08/29/21 08:00 08/29/21 08:00 08/29/21 08:00 08/29/21 09:56 Laboratory Results - last 24 hr 08/29/21 07:51: WBC 6.3, RBC 4.31 L, Hgb 13.2 L, Hct 44.2, MCV 102.4 H, MCH 30.6, MCHC 29.9 L, RDW 18.5 H, Plt Count 216, MPV 8.5, Neut % (Auto) 69.9, Lymph % (Auto) 19.1, [place] % (Auto) 10.1 H, Eos % (Auto) 0.6, Baso % (Auto) 0.4, Neut # (Auto) 4.4, Lymph # (Auto) 1.2, [place] # (Auto) 0.6, Eos # (Auto) 0.0, Baso # (Auto) 0.0 08/29/21 07:51: Sodium 142, Potassium 4.3, Chloride 99, Carbon Dioxide 37 H, Anion Gap 10.3, BUN 23 H D, Creatinine 0.60 L, Estimated Creat Clear 83, Estimated GFR 132, Est GFR ( Amer) 160, Glucose 125 H, Calcium 8.9 08/29/21 07:51: Total Bilirubin 1.7 H, Direct Bilirubin 1.0 H, Conjugated Bilirubin 0.0, Indirect Bilirubin 0.7, Unconjugated Bilirubin 0.7, AST 265 H D, ALT 380 H*, Alkaline Phosphatase 104, Total Protein 7.2, Albumin 3.6 I & O for Last 24 hours: Intake & Output 08/26/21 08/27/21 08/28/21 08/29/21 11:59 11:59 11:59 11:59 Intake Total 840 / 840 480 / 480 1440 / 1440 Output Total 1225 / 1225 6800 / 6800 2049 Balance -385 / -385 -6320 / -6320 -610 / -610 Weight 240 lb 4.862 oz 193 lb 12.8 oz 193 lb 12 oz Microbiology Reports for the Last 24 Hours: Microbiology 08/26/21 12:20 Blood Blood Culture - Preliminary NO GROWTH AFTER 48 HOURS 08/26/21 12:20 Blood Blood Culture - Preliminary - Constitutional no acute distress - *Routine HEENT Exam Head: Present: normocephalic Eye: Present: EOMI, PERRL ENT: Present: mucous membranes moist - *Routine Neck Exam Present: supple. Absent: lymphadenopathy - *Routine Respiratory Exam Present: wheezes, diminished air movement - *Routine Cardiovascular Exam Present: RRR - *Routine Abdominal Exam Present: soft, normoactive bowel sounds. Absent: tenderness - *Routine Extremities Exam Present: edema. Absent: cyanosis, clubbing - *Routine Skin Exam Present: warm. Absent: rash - *Routine Neurological Exam Present: alert, oriented X3 Progress Note: A&P (1) Acute exacerbation of chronic obstructive airways disease Status: Acute (2) Pulmonary infiltrates on CXR Status: Acute (3) Ischemic cardiomyopathy with implantable cardioverter-defibrillator (ICD) Status: Acute (4) Hypertension Status: Acute (5) Hyperlipidemia Status: Acute (6) Diabetes mellitus type 2 in obese Status: Acute (7) Obstructive sleep apnea Status: Acute (8) Cardiac murmur, unspecified Status: Acute (9) Acute on chronic systolic congestive heart failure, NYHA class 4 Status: Acute (10) Elevated liver function tests Status: Acute (11) Agent orange exposure Status: Acute Assessment and Plan for All Diagnoses:: 1. Shortness of breath, multifactorial 2. Acute on chronic COPD exacerbation, treatment per PCP. 3. Acute on chronic systolic congestive heart failure currently class IV. Patient diuresed over 7L on IV Lasix with p.o. spironolactone. Will switch to oral Lasix 40 mg twice daily to coincide with spironolactone 25 mg twice daily. 4. Elevated liver functions, improved with diuresis. 5. Cardiac murmur on exam but echocardiogram report showing no evidence of significant valve disease. 6. Known ischemic cardiomyopathy with AICD in situ. EKG shows V. pacing. Echocardiogram this admission shows EF 20-25%. Dilated RV noted. 7. Continued tobacco
--- NOTE | 2021-08-29 14:03 | HMH.DCSUM ---
General - General Admission date:: 08/26/21 Discharge date: 08/29/21 HPI HPI: 71-year-old male with hx of coronary artery disease, ischemic cardiomyopathy and AICD presented to the emergency department for increasing shortness of breath over the last 2 weeks. Patient denies any chest pain, pressure or tightness but has noticed a significant decrease in his exercise ability with an increase in his shortness of breath and lower extremity edema.Patient states edema improves if he elevates his legs. Patient was admitted for further evaluation and treatment. Patient states all his care he receives at the [facility]. Hospital Course Hospital Course: Laboratory Tests 08/26/21 08/26/21 08/26/21 12:20 12:20 12:20 WBC 7.5 RBC 4.39 L Hgb 13.5 L Hct 45.1 MCV 102.9 H MCH 30.9 MCHC 30.0 L RDW 18.2 H Plt Count 189 MPV 8.7 Neut % (Auto) 76.4 Lymph % (Auto) 14.8 [place] % (Auto) 8.1 Eos % (Auto) 0.0 L Baso % (Auto) 0.7 Neut # (Auto) 5.7 Lymph # (Auto) 1.1 [place] # (Auto) 0.6 Eos # (Auto) 0.0 Baso # (Auto) 0.1 Sodium 135 L Potassium 4.7 Chloride 93 L Carbon Dioxide 30 Anion Gap 16.7 H BUN 17 Creatinine 0.70 Estimated Creat Clear 103 Estimated GFR 111 Est GFR ( Amer) 134 Glucose 155 H Lactate 3.3 H Calcium 9.1 Total Bilirubin 3.4 H Direct Bilirubin Conjugated Bilirubin Indirect Bilirubin Unconjugated Bilirubin AST 530 H* ALT 250 H Alkaline Phosphatase 107 Troponin I 0.06 H NT-Pro-B Natriuret Pep Total Protein 8.0 Albumin 4.4 Globulin 3.6 H Albumin/Globulin Ratio 1.2 Amylase Lipase SARS-CoV-2 (PCR) Influenza A Untype (PCR) Influenza Type B (PCR) 08/26/21 08/26/21 08/26/21 12:20 12:20 15:05 WBC RBC Hgb Hct MCV MCH MCHC RDW Plt Count MPV Neut % (Auto) Lymph % (Auto) [place] % (Auto) Eos % (Auto) Baso % (Auto) Neut # (Auto) Lymph # (Auto) [place] # (Auto) Eos # (Auto) Baso # (Auto) Sodium Potassium Chloride Carbon Dioxide Anion Gap BUN Creatinine Estimated Creat Clear Estimated GFR Est GFR ( Amer) Glucose Lactate Calcium Total Bilirubin Direct Bilirubin Conjugated Bilirubin Indirect Bilirubin Unconjugated Bilirubin AST ALT Alkaline Phosphatase Troponin I 0.06 H NT-Pro-B Natriuret Pep 3400 H Total Protein Albumin Globulin Albumin/Globulin Ratio Amylase Lipase SARS-CoV-2 (PCR) Not detected Influenza A Untype (PCR) Not detected Influenza Type B (PCR) Not detected 08/26/21 08/27/21 08/27/21 16:50 10:30 10:30 WBC 9.4 D RBC 4.10 L Hgb 12.9 L Hct 41.5 L MCV 101.3 H MCH 31.4 H MCHC 31.0 L RDW 18.3 H Plt Count 201 MPV 9.1 Neut % (Auto) 74.9 Lymph % (Auto) 14.9 [place] % (Auto) 9.6 H Eos % (Auto) 0.4 Baso % (Auto) 0.2 Neut # (Auto) 7.1 Lymph # (Auto) 1.4 [place] # (Auto) 0.9 Eos # (Auto) 0.0 Baso # (Auto) 0.0 Sodium 132 L Potassium 5.1 Chloride 98 Carbon Dioxide 25 Anion Gap 14.1 BUN 33 H D Creatinine 0.70 Estimated Creat Clear 103 Estimated GFR 111 Est GFR ( Amer) 134 Glucose 150 H Lactate 1.8 Calcium 8.9 Total Bilirubin 2.5 H Direct Bilirubin Conjugated Bilirubin Indirect Bilirubin Unconjugated Bilirubin AST 833 H* D ALT 546 H* Alkaline Phosphatase 98 Troponin I NT-Pro-B Natriuret Pep Total Protein 7.5 Albumin 4.0 Globulin 3.5 H Albumin/Globulin Ratio 1.1 Amylase Lipase SARS-CoV-2 (PCR) Influenza A Untype (PCR) Influenza Type B (PCR) 08/28/21 08/28/21 08/28/21 06:00 06:00 06:00 WBC 7.4 RBC 4.02 L Hgb 12.5 L Hct 40.5 L MCV 100.9 H MCH 31.0 MCHC 30.7 L
--- NOTE | 2021-08-29 15:02 | HMH.PHAINT ---
DISCARGE MEDICATION EDUCATION COMPLETE. PATIENT HAD NO QUESTIONS
--- NOTE | 2021-08-29 17:28 | PC.NURSE ---
D/c instructions given to pt upon d/c. Advised pt to call sorrel when arriving [facility] to set up home 02.
== END 2021-08-29 15:35 | disposition home or self-care (01) | DRG 291 ==
LOC: ER 14:01 → 2ND 16:31
PROVIDERS: Nurse Practitioner Family; Physician Assistant; Surgery; Admitting Provider Family Medicine; Emergency Provider Student in an Organized Health Care Education/Training Program; Visit Provider Family Medicine
DX: I50.23 Acute on chronic systolic (congestive) heart failure (principal); J44.1 Chronic obstructive pulmonary disease with (acute) exacerbation; I11.0 Hypertensive heart disease with heart failure; I25.5 Ischemic cardiomyopathy; I25.10 Atherosclerotic heart disease of native coronary artery without angina pectoris; Z95.810 Presence of automatic (implantable) cardiac defibrillator; F17.210 Nicotine dependence, cigarettes, uncomplicated; Z20.822 Contact with and (suspected) exposure to COVID-19; Z99.81 Dependence on supplemental oxygen; Z77.29 Contact with and (suspected) exposure to other hazardous substances; G47.33 Obstructive sleep apnea (adult) (pediatric); Z96.653 Presence of artificial knee joint, bilateral
CPT/HCPCS: 36415; 71045; 74177; 76705; 80048; 80053; 80076; 82150; 83605; 83690; 83880; 84484; 85025; 87040; 87077; 87186; 93005; 93306; 94640; 94760; 96365; 96367; 96375; 97161; 97166; 99284; C9803; J0456; Q9967; U0003; U0005

== ENCOUNTER → 2021-09-11 10:35 | Outpatient (CLI) | payer MEDICARE, SELFPAY ==
[2021-09-11 11:54] LABS: Chloride 97 mmol/L (98-107); Sodium 141 mmol/L (136-145)
[2021-09-11 11:55] LABS: Potassium 5.2 mmoL/L (3.5-5.1)
[2021-09-11 11:57] LABS: Blood Urea Nitrogen 15 mg/dl (9-20); Estimated Glomerular Filt Rate 95 ml/min (>60); GFR (African American) 115 ML/MIN (>60)
[2021-09-11 11:58] LABS: Anion Gap 12.2 mEq/L (5-15); Calcium 9.5 mg/dl (8.4-10.2); Carbon Dioxide 37 mmol/L (22.0-30.0); Glucose 133 mg/dl (74-100)
== END ==
PROVIDERS: Visit Provider Physician Assistant
DX: E78.5 Hyperlipidemia, unspecified (principal); I25.10 Atherosclerotic heart disease of native coronary artery without angina pectoris; I25.5 Ischemic cardiomyopathy; I50.23 Acute on chronic systolic (congestive) heart failure; I71.4 Abdominal aortic aneurysm, without rupture; Z95.1 Presence of aortocoronary bypass graft; Z95.810 Presence of automatic (implantable) cardiac defibrillator; I11.0 Hypertensive heart disease with heart failure
CPT/HCPCS: 36415; 80048

== ENCOUNTER → 2021-10-04 17:35 | Outpatient (CLI) | payer MEDICARE, SELFPAY ==
[2021-10-04 19:05] LABS: Alanine Aminotransferase 11 U/L (12-78); Albumin Level 4.3 g/dl (3.5-5.0); Albumin/Globulin Ratio 1.5 (1.1-1.8); Alkaline Phosphatase 98 U/L (38-126); Anion Gap 9.9 mEq/L (5-15); Aspartate Amino Transferase 28 U/L (17-59); Bilirubin,Total 1.5 mg/dl (0.2-1.3); Blood Urea Nitrogen 9 mg/dl (9-20); Calcium 9.2 mg/dl (8.4-10.2); Carbon Dioxide 32 mmol/L (22.0-30.0); Chloride 101 mmol/L (98-107); Estimated Glomerular Filt Rate 111 ml/min (>60); GFR (African American) 134 ML/MIN (>60); Globulin 2.9 g/dL (1.3-3.2); Glucose 59 mg/dl (74-100); Potassium 3.9 mmoL/L (3.5-5.1); Sodium 139 mmol/L (136-145); Total Protein,Serum 7.2 g/dl (6.3-8.2)
== END ==
PROVIDERS: Visit Provider Physician Assistant
DX: E87.5 Hyperkalemia (principal)
CPT/HCPCS: 80053

== ENCOUNTER 2022-02-18 13:52 | Inpatient (IN) | payer MEDICARE, OTHER, SELFPAY ==
[2022-02-18] VITALS (14 sets, daily range): BP systolic 107–134; BP diastolic 72–89; PULSE 85–104; RESP 18–24; TEMP 36.6–37.2; O2SAT 92–95; BMI 33.9; BMI 32.2
--- NOTE | 2022-02-18 14:07 | CT_ITS ---
FINAL REPORT TECHNIQUE: After the administration of intravenous contrast, axial images were obtained through the abdomen and pelvis by computed tomography. Oral contrast was also administered. This study was performed with technique to keep radiation doses as low as reasonably achievable, (ALARA). Individualized dose reduction techniques using automated exposure control or adjustment of the MA and/or KV according to the patient's size were employed. CLINICAL HISTORY: pain, lt side pain COMPARISON: 08/27/2021 FINDINGS: Abdomen: The lung bases demonstrate the worsening small pleural effusions with partial loculation of the left pleural effusion. There is mild bibasilar atelectasis or scarring. There is left ventricular enlargement with calcification of the left ventricle wall consistent with prior RI. The liver is normal in size and attenuation. The spleen is unremarkable. There is bilateral adrenal enlargement which may represent adenomas or hyperplasia. The pancreas is unremarkable. The kidneys enhance appropriately. The aorta is aneurysmal measuring 3.5 cm, stable from prior exam. There has been interval development of a small amount of ascites. Pelvis: The appendix is normal. The urinary bladder is unremarkable. There is a small amount of pelvic ascites, new from prior exam. IMPRESSION: Interval development of pelvic and abdominal ascites. Worsening small pleural effusions with partial loculation of left pleural effusion. Reviewed, Interpreted and Dictated by Patrice Singh III, MD Transcribed by Gretchen Neal Authenticated by Patrice Singh III, MD on 02/18/2022 05:12:09 PM [facility]
--- NOTE | 2022-02-18 14:23 | PC.NURSE ---
Yessenia in radiology aware that pt just finished oral contrast.
[2022-02-18 14:34] LABS: Basophils # 0.1 K/mm3 (0-0.2); Basophils % 1.2 % (0.1-2.0); Eosinophils # 0.1 K/mm3 (0.0-0.4); Eosinophils % 2.6 % (0.1-12.0); Hematocrit 31.1 % (42.0-52.0); Hemoglobin 9.4 g/dL (14.1-18.0); Lymphocytes # 1.4 K/mm3 (0.7-4.5); Lymphocytes % 31.4 % (10-50); Mean Corpuscular HGB Conc 30.2 g/dL (31.8-35.4); Mean Corpuscular Hemoglobin 29.3 pg (27.0-31.2); Mean Corpuscular Volume 97.2 fl (80-94); Monocytes # 0.3 K/mm3 (0.1-1.0); Monocytes % 7.7 % (1.7-9.3); Neutrophils # 2.5 K/mm3 (1.8-7.8); Neutrophils % 57.1 % (37.0-80.0); Platelet Count 180 K/mm3 (142-424); Red Cell Distribution Width 18.7 % (11.5-17.5); White Blood Count 4.3 K/mm3 (4.8-10.8)
[2022-02-18 14:37] LABS: Alanine Aminotransferase 16 U/L (12-78); Albumin Level 3.9 g/dl (3.5-5.0); Albumin/Globulin Ratio 1.2 (1.1-1.8); Alkaline Phosphatase 102 U/L (38-126); Aspartate Amino Transferase 22 U/L (17-59); Bilirubin,Total 1.5 mg/dl (0.2-1.3); Blood Urea Nitrogen 12 mg/dl (9-20); Calcium 8.6 mg/dl (8.4-10.2); Carbon Dioxide 33 mmol/L (22.0-30.0); Chloride 102 mmol/L (98-107); Creatinine Clearance Estimated 106 mL/min (50-200); Estimated Glomerular Filt Rate 95 ml/min (>60); GFR (African American) 115 ML/MIN (>60); Globulin 3.2 g/dL (1.3-3.2); Glucose 116 mg/dl (74-100); Lipase 37 U/L (23-300); Sodium 140 mmol/L (136-145); Total Protein,Serum 7.1 g/dl (6.3-8.2)
--- NOTE | 2022-02-18 15:37 | HMH.EDABDPAI ---
ED Disposition Clinical Impression: Pleural effusion Abdominal pain Qualifiers: Abdominal location: generalized Qualified Code(s): R10.84 - Generalized abdominal pain Abdominal aortic aneurysm (AAA) Qualifiers: Presence of rupture: without rupture Qualified Code(s): I71.4 - Abdominal aortic aneurysm, without rupture Ascites Qualifiers: Ascites type: other type Qualified Code(s): R18.8 - Other ascites Disposition: Admitted As Inpatient Condition on Discharge: Fair Instructions: DI for Acute Abdominal Pain Referrals: Thalia Campuzano PA [Primary Care Provider] - - Critical Care Critical Care Time: No Attestation: On 02/18/22, the high probability of a clinically significant, sudden or life threatening deterioration of the following system(s) required my full and direct attention, intervention and personal management. The time I documented below is in addition to time spent performing reported procedures but includes the following listed in this critical care notation. Medical Decision Making - Medical Records Medical records reviewed: Yes: I reviewed the patient's medical records. - Carl Inquiry Pt receiving controlled substance: No Vital Signs: 02/18/22 13:53 02/18/22 14:30 02/18/22 15:00 Temperature 97.8 F Temperature Source Oral Pulse Rate 89 89 Pulse Rate [Left Radial] 104 H Respiratory Rate 19 Blood Pressure 124/83 129/82 Blood Pressure [Right Arm] 131/77 Blood Pressure Mean 95 89 Blood Pressure Mean [Right Arm] 95 Blood Pressure Source [Right Arm] Automatic Cuff Blood Pressure Position [Right Arm] Sitting 02 Sat by Pulse Oximetry 94 L 95 95 Oxygen Delivery Method Room Air 02/18/22 15:30 Temperature Temperature Source Pulse Rate 85 Pulse Rate [Left Radial] Respiratory Rate Blood Pressure 125/77 Blood Pressure [Right Arm] Blood Pressure Mean 91 Blood Pressure Mean [Right Arm] Blood Pressure Source [Right Arm] Blood Pressure Position [Right Arm] 02 Sat by Pulse Oximetry 95 Oxygen Delivery Method - Lab Data Lab Results 02/18/22 14:20: WBC 4.3 L, RBC 3.20 L, Hgb 9.4 L, Hct 31.1 L, MCV 97.2 H, MCH 29.3, MCHC 30.2 L, RDW 18.7 H, Plt Count 180, MPV 9.0, Neut % (Auto) 57.1, Lymph % (Auto) 31.4, [place] % (Auto) 7.7, Eos % (Auto) 2.6, Baso % (Auto) 1.2, Neut # (Auto) 2.5, Lymph # (Auto) 1.4, [place] # (Auto) 0.3, Eos # (Auto) 0.1, Baso # (Auto) 0.1 02/18/22 14:20: Sodium 140, Potassium 4.0, Chloride 102, Carbon Dioxide 33 H, Anion Gap 9.0, BUN 12, Creatinine 0.80, Estimated Creat Clear 106, Estimated GFR 95, Est GFR ( Amer) 115, Glucose 116 H, Calcium 8.6, Total Bilirubin 1.5 H, AST 22, ALT 16, Alkaline Phosphatase 102, Total Protein 7.1, Albumin 3.9, Globulin 3.2, Albumin/Globulin Ratio 1.2, Lipase 37 Result diagrams: 02/18/22 14:20 02/18/22 14:20 Orders (Tests/Meds): ED MEDICATIONS Discontinued Medications Generic Name Dose Route Start Last Admin Trade Name Freq PRN Reason Stop Dose Admin Diatrizoate Meglum/Diatrizoate Sod 30 ml 02/18/22 14:07 02/18/22 14:22 Diatrizoate Dominique 66% & Diatrizoate Na 10% 30ml Udc PO 02/18/22 14:08 30 ml ONCE ONE Administration Iopamidol 75 ml 02/18/22 15:42 02/18/22 15:43 Iopamidol-370 (76%);100ml Bottle IV 02/18/22 15:43 75 ml ONCE ONE Administration Sodium Chloride 10 ml 02/18/22 15:42 02/18/22 15:43 Sodium Chloride 0.9% 10ml Syr (Rad Only) IV 02/18/22 15:43 10 ml ONCE ONE Administration ORDERS Category Date Time Status XR chest portable Stat Exams 02/18/22 17:54 Ordered Brain Natriuretic Peptide Stat Lab 02/18/22 17:54 Ordered PTT [Activated Partial Thrombo Time] Stat Lab 02/18/22 17:54 Ordered Prothrombin Time INR Stat Lab 02/18/22 17:54 Ordered Rapid PCR Covid and Flu A/B Stat Lab 02/18/22 17:41 Ordered Trop I [Troponin I] Stat Lab 02/18/22 17:54 Ordered Troponin I Q3H Lab 02/18/22 21:00 Ordered Troponin I Q3H Lab 02/19/22 00:00 Ordered
--- NOTE | 2022-02-18 15:39 | PC.NURSE ---
patient to radiology by stretcher with systems test technician
--- NOTE | 2022-02-18 15:50 | PC.NURSE ---
patient back from radiology with neurodiagnostic technologist by ai
--- NOTE | 2022-02-18 17:38 | PC.NURSE ---
ED MD at for update on POC
--- NOTE | 2022-02-18 17:53 | PC.NURSE ---
Dr Miller speaking with Dr Aguirre
--- NOTE | 2022-02-18 17:54 | XR_ITS ---
PROCEDURE INFORMATION: Exam: XR Chest Exam date and time: 02/18/2022 6:01 PM Age: 72 years old Clinical indication: Cough TECHNIQUE: Imaging protocol: XR of the chest. Views: 1 view. COMPARISON: CR XR CHEST PORTABLE 08/26/2021 12:30 PM FINDINGS: Tubes, catheters and devices: Unchanged cardiac leads. Lungs: There is a left lower lung opacity that is new compared to prior study. Pleural spaces: Unremarkable. No pleural effusion. No pneumothorax. Heart/Mediastinum: Cardiomegaly. Vasculature: Vascular calcifications. Bones/joints: Status post median sternotomy. IMPRESSION: There is a left lower lung opacity that is new compared to prior study. In the appropriate clinical setting, this could correlate with pneumonia. Follow-up radiographs to resolution are recommended to exclude underlying malignancy.
[2022-02-18 18:06] LABS: Influenza A, PCR Not Detected (NotDetected); Influenza B, PCR Not Detected (NotDetected)
[2022-02-18 18:16] LABS: Activated Partial Thrombo Time 27.4 seconds (22.8-30.6); INR 1.12 (0.9-1.1); Prothrombin Time 12.6 seconds (10.1-12.5)
[2022-02-18 18:23] LABS: NT Pro Brain Natriuretic Pep. 1480 pg/mL (0-125)
[2022-02-18 18:26] LABS: Troponin I 0.04 ng/ml (0.00-0.034)
[2022-02-18 19:28] LABS: Coronavirus 19, PCR Detected (NotDetected)
--- NOTE | 2022-02-18 19:51 | PC.NURSE ---
PT ARRIVED TO FLOOR VIA W/C FROM ED W/STAFF @ [id number]
--- NOTE | 2022-02-18 19:57 | PC.NURSE ---
REPORT TO STARR ZUNIGA RN. @ 1942. PT AWARE OF BEING POSITIVE FOR COVID. RN MADE AWARE OF BEING POSITIVE FOR COVID.
--- NOTE | 2022-02-18 20:16 | PC.NURSE ---
called to verify vanc dosing, Allison from [facility] said the dose had been verified and it was ok to give, stated she will retime since dose was not given in ER
[2022-02-18 22:04] LABS: Troponin I 0.05 ng/ml (0.00-0.034)
[2022-02-19] VITALS (8 sets, daily range): BP systolic 126–166; BP diastolic 64–94; PULSE 80–100; RESP 16–21; TEMP 36.5–37.3; O2SAT 93–98; BMI 32.2
--- NOTE | 2022-02-19 00:40 | PC.NURSE ---
pt unable to recall any of his medications, states [facility], but no external summary will pull up
[2022-02-19 00:49] LABS: Troponin I 0.06 ng/ml (0.00-0.034)
--- NOTE | 2022-02-19 05:24 | PC.NURSE ---
pt has not rested this shift, has remained on side of bed most of shift, has not complained of SOA or pain, remains on 2L NC with sats 92-98, pt again asked about home medications this morning, states that he cannot tell me any of the names of any medication he takes, but that [facility] are [facility] the [facility]
[2022-02-19 07:21] LABS: Basophils # 0.1 K/mm3 (0-0.2); Basophils % 1.9 % (0.1-2.0); Eosinophils # 0.1 K/mm3 (0.0-0.4); Eosinophils % 2.2 % (0.1-12.0); Hematocrit 31.7 % (42.0-52.0); Hemoglobin 9.4 g/dL (14.1-18.0); Lymphocytes # 1.1 K/mm3 (0.7-4.5); Lymphocytes % 22.9 % (10-50); Mean Corpuscular HGB Conc 29.6 g/dL (31.8-35.4); Mean Corpuscular Hemoglobin 29.1 pg (27.0-31.2); Mean Corpuscular Volume 98.4 fl (80-94); Mean Platelet Volume 9.2 fl (7.4-10.4); Monocytes # 0.4 K/mm3 (0.1-1.0); Monocytes % 9.6 % (1.7-9.3); Neutrophils % 63.4 % (37.0-80.0); Platelet Count 194 K/mm3 (142-424); Red Blood Count 3.23 M/mm3 (4.60-6.20); Red Cell Distribution Width 19.1 % (11.5-17.5); White Blood Count 4.7 K/mm3 (4.8-10.8)
--- NOTE | 2022-02-19 07:23 | HMH.PHAVTE ---
[facility] Pharmacy VTE Monitoring - Patient Demographics Admission date: 02/18/22 Report Date: 02/19/22 Time: 07:23 Allergies/Adverse Reactions: Patient Allergies No Known Allergies Allergy (Verified 12/13/21 14:37) Height: 1.83 m Weight: 108.046 kg Patient Problems: Current Active Problems Abdominal pain (Acute) Pleural effusion (Acute) Ascites (Acute) Abdominal aortic aneurysm (AAA) (Chronic) - VTE Risk Labs: VTE Related Lab Results Hgb 9.4 g/dL (14.1-18.0) L 02/19/22 06:40 Hct 31.7 % (42.0-52.0) L 02/19/22 06:40 Plt Count 194 K/mm3 (142-424) 02/19/22 06:40 PT 12.6 seconds (10.1-12.5) H 02/18/22 14:20 INR 1.12 (0.9-1.1) H 02/18/22 14:20 APTT 27.4 seconds (22.8-30.6) 02/18/22 14:20 BUN 12 mg/dl (9-20) 02/18/22 14:20 Creatinine 0.80 mg/dl (0.66-1.25) 02/18/22 14:20 Estimated Creat Clear 106 mL/min (50-200) 02/18/22 14:20 VTE Risk Level: Moderate Risk - Prophylaxis VTE Prophylaxis Ordered?: Yes Types of VTE Prophylaxis: TEDS Knee High, Pharmacological Location of Applied Device: Bilateral Lower Extremeties Pharmacologic Type: Enoxaparin
[2022-02-19 07:25] LABS: Chloride 102 mmol/L (98-107); Potassium 4.9 mmoL/L (3.5-5.1); Sodium 138 mmol/L (136-145)
[2022-02-19 07:28] LABS: Anion Gap 8.9 mEq/L (5-15); Blood Urea Nitrogen 13 mg/dl (9-20); Calcium 8.5 mg/dl (8.4-10.2); Carbon Dioxide 32 mmol/L (22.0-30.0); Creatinine Clearance Estimated 101 mL/min (50-200); Estimated Glomerular Filt Rate 83 ml/min (>60); GFR (African American) 100 ML/MIN (>60); Glucose 83 mg/dl (74-100)
--- NOTE | 2022-02-19 08:04 | HMH.PHACONS ---
- Pharmacy Consult Date: 02/19/22 Time: 08:04 Referring provider: DR ZAPATA Reason for Consult:: VANCOMYCIN DOSING CONSULT Allergies and ADEs:: Allergies Allergy/AdvReac Type Severity Reaction Status Date / Time No Known Allergies Allergy Verified 12/13/21 14:37 Home Medications:: Home Medications Medication Instructions Recorded Confirmed Type Albuterol Sulfate [Albuterol 1 puff IH Q4HP PRN 08/26/21 12/13/21 History Sulfate Hfa] Buspirone HCl [Buspar 10mg 20 mg PO TID 08/26/21 12/13/21 History tablet] Duloxetine HCl 120 mg PO DAILY 08/26/21 12/13/21 History Empagliflozin [Jardiance] 10 mg PO DAILY 08/26/21 12/13/21 History Famotidine [Heartburn Prevention] 20 mg PO HS 08/26/21 12/13/21 History Gabapentin 800 mg PO HS 08/26/21 12/13/21 History Metformin HCl [Metformin 1000mg 1,000 mg PO BIDWMEAL 08/26/21 12/13/21 History Tablets] Pantoprazole Sodium 20 mg PO DAILY 08/26/21 12/13/21 History Prazosin HCl 15 mg PO HS 08/26/21 12/13/21 History Sennosides/Docusate Sodium 1 each PO BID 08/26/21 12/13/21 History [Docusate Sodium-Sennosides Tab] Tiotropium Br/Olodaterol HCl 1 inh IH DAILY 08/26/21 12/13/21 History [Stiolto Respimat Inhal [place]] Tramadol HCl [Tramadol 50mg 100 mg PO DAILYP PRN 08/26/21 12/13/21 History Tab] Trazodone HCl 200 mg PO HS 08/26/21 12/13/21 History glipiZIDE [Glipizide] 10 mg PO BID 08/26/21 12/13/21 History aspirin 81 mg tablet,delayed 81 mg PO DAILY #30 tab 09/11/21 12/13/21 Rx release lisinopril 40 mg tablet 40 mg PO DAILY #30 tab 09/11/21 12/13/21 Rx atorvastatin 40 mg tablet 40 mg PO DAILY #90 tab 10/04/21 12/13/21 Rx carvedilol 12.5 mg tablet 12.5 mg PO BID #180 tab 10/04/21 12/13/21 Rx furosemide 20 mg tablet 20 mg PO DAILY tab 10/04/21 12/13/21 History furosemide 40 mg tablet 40 mg PO DAILY #90 tab 10/04/21 12/13/21 Rx nicotine 21 mg/24 hr daily 21 mg TRANSDERMA DAILY #30 patch 10/04/21 12/13/21 Rx transdermal patch nystatin 100,000 unit/mL oral 10 ml PO QID 10 Days #400 ml 10/04/21 12/13/21 Rx suspension spironolactone 25 mg tablet 25 mg PO DAILY #90 tab 10/04/21 12/13/21 Rx Height: 1.83 m Weight: 108.046 kg Laboratory Results:: Laboratory Results - last 24 hr 02/18/22 14:20: WBC 4.3 L, RBC 3.20 L, Hgb 9.4 L, Hct 31.1 L, MCV 97.2 H, MCH 29.3, MCHC 30.2 L, RDW 18.7 H, Plt Count 180, MPV 9.0, Neut % (Auto) 57.1, Lymph % (Auto) 31.4, [place] % (Auto) 7.7, Eos % (Auto) 2.6, Baso % (Auto) 1.2, Neut # (Auto) 2.5, Lymph # (Auto) 1.4, [place] # (Auto) 0.3, Eos # (Auto) 0.1, Baso # (Auto) 0.1 02/18/22 14:20: Sodium 140, Potassium 4.0, Chloride 102, Carbon Dioxide 33 H, Anion Gap 9.0, BUN 12, Creatinine 0.80, Estimated Creat Clear 106, Estimated GFR 95, Est GFR ( Amer) 115, Glucose 116 H, Calcium 8.6, Total Bilirubin 1.5 H, AST 22, ALT 16, Alkaline Phosphatase 102, Total Protein 7.1, Albumin 3.9, Globulin 3.2, Albumin/Globulin Ratio 1.2, Lipase 37 02/18/22 14:20: PT 12.6 H, INR 1.12 H, APTT 27.4 02/18/22 14:20: Troponin I 0.04 H, NT-Pro-B Natriuret Pep 1480 H 02/18/22 18:01: SARS-CoV-2 (PCR) Detected A, Influenza A Untype (PCR) Not detected, Influenza Type B (PCR) Not detected 02/18/22 21:12: Troponin I 0.05 H 02/19/22 00:19: Troponin I 0.06 H 02/19/22 06:40: WBC 4.7 L, RBC 3.23 L, Hgb 9.4 L, Hct 31.7 L, MCV 98.4 H, MCH 29.1, MCHC 29.6 L, RDW 19.1 H, Plt Count 194, MPV 9.2, Neut % (Auto) 63.4, Lymph % (Auto) 22.9, [place] % (Auto) 9.6 H, Eos % (Auto) 2.2, Baso % (Auto) 1.9, Neut # (Auto) 3.0, Lymph # (Auto) 1.1, [place] # (Auto) 0.4, Eos # (Auto) 0.1, Baso # (Auto) 0.1 02/19/22 06:40: Sodium 138, Potassium 4.9 D, Chloride 102, Carbon Dioxide 32 H, Anion Gap 8.9, BUN 13, Creatinine 0.90, Estimated Creat Clear 101, Estimated GFR 83, Est GFR ( Amer) 100, Glucose 83 D, Calcium 8.5 Medical History: Reports:: Congestive Heart Failure, Diabetes Mellitus Type 2, Hyperlipidemia, Hypertension, Internal Pacemaker Denies:: Cancer, Diabetes Mellitus Type 1, MRSA Assessmen
--- NOTE | 2022-02-19 09:13 | HMH.HP ---
*Admission Date: 02/18/22 *Chief complaint: Abdominal pain *History of present illness: 72-year-old male patient presented to the [facility] emergency department with complaints of abdominal discomfort. He reports he was having a bowel movement last week and heard a pop and started having abdominal pain. He reports having bowel movements since without any pain. He does report feeling a little bulge in that area and that the pain has been off and on since. He reports he does feel tenderness when he palpates the area. He denies any dysuria or hematuria, he also denies nausea/vomiting/diarrhea and has been having normal bowel movements since. He does report he is a 54-year 2 pack/day smoker and is on home oxygen at 2 L per nasal cannula. Chest x-ray revealed left lower lung opacity. Abdominal/pelvis CT revealed development of pelvic and abdominal ascites. Worsening small pleural effusions with partial loculation of left pleural effusion 72-year-old male patient sitting up in bed he denies any respiratory distress/chest pain during the night. Current oxygenation 97% on 2 L per nasal cannula. He denies any pain when umbilical area is palpated. There are some bilateral pleural effusions revealed with abdominal CT we will perform a chest CT and consult pulmonology. There is no abdominal tenderness with generalized palpation or around umbilicus. If pain develops we will consult general surgery. [facility] History I have reviewed the patient's past medical history: Yes Medical History: Reports:: Congestive Heart Failure, Diabetes Mellitus Type 2, Hyperlipidemia, Hypertension, Internal Pacemaker Denies:: Cancer, Diabetes Mellitus Type 1, MRSA *Have you ever received a pneumonia vaccine?: Yes *Have you received a flu vaccine this season?: Yes Other Medical History: Reports: Arthritis Other Surgeries: Yes: Cardiac Catheterization, Colonoscopy, Open Heart Surgery, Pacemaker Amputation: No - *Social History Last grade of school completed: High school graduate Smoking Status: Current some day smoker Tobacco Type: cigarettes, e-cigarettes # Packs/Day (cigarettes): 1 Alcohol Intake: former *Occupational Status:: unemployed Household Members: children *Travel in the last 8 weeks: None Family Hx:: Diabetes, Heart Attack, Hyperlipidemia, Hypertension Review of Systems - Review of Systems Review of systems:: pertinent systems reviewed and negative unless documented below - Constitutional Denies body ache(s), Denies fatigue - Eyes Denies blurry vision, Denies double vision - ENT Denies abnormal hearing, Denies mouth pain - *Cardiovascular Denies chest pain, Denies chest pain at rest, Denies lightheadedness - *Respiratory Denies chest congestion, Denies cough - *Gastrointestinal Reports abdominal pain, Denies change in stools, Denies difficulty swallowing, Denies nausea, Denies vomiting - *Musculoskeletal Denies abnormal walking, Denies joint swelling, Denies numbness - Integumentary/Breasts Denies change in skin color, Denies non-healing lesions - *Neurologic Denies abnormal movements, Denies localized weakness, Denies headache(s) - Psychiatric Denies lack of enjoyment, Denies confusion, Denies difficulty concentrating - Endocrine Denies cold intolerance, Denies excessive sweating - Hematologic/Lymphatic Denies easy bleeding, Denies easy bruising - Allergic/Immunologic Denies GI upset with certain foods, Denies hives Meds Home Medications Medication Instructions Recorded Confirmed Type Albuterol Sulfate [Albuterol 2 puffs IH QIDP PRN 08/26/21 02/19/22 History Sulfate Hfa] Buspirone HCl [Buspar 10mg 20 mg PO TID 08/26/21 02/19/22 History tablet] Duloxetine HCl 120 mg PO DAILY 08/26/21 02/19/22 History Empagliflozin [Jardiance] 10 mg PO DAILY 08/26/21 02/19/22 History Famotidine [Heartburn Prevention] 20 mg PO HS 08/26/21 02/19/22 History Gabapentin 800 mg PO HS 08/26/21 02/19/22
--- NOTE | 2022-02-19 09:15 | CT_ITS ---
FINAL REPORT TECHNIQUE: Axial CT images were performed from the lung apices through the upper abdomen. Coronal reformats were submitted. This study was performed with techniques to keep radiation doses as low as reasonably achievable (ALARA). Individualized dose reduction techniques using automated exposure control or adjustment of mA and/or kV according to the patient's size were employed. CLINICAL HISTORY: Pleural Effusion, covid+ FINDINGS: The patient is status post median sternotomy. A left subclavian pacemaker is present. There is mild cardiomegaly. There is calcification of the fat in the left ventricular wall consistent with prior myocardial infarction. There is no axillary adenopathy. There is no hilar or mediastinal mass or adenopathy. There are small pleural effusions. There is mild bibasilar atelectasis. Limited images of the upper abdomen in straight a small amount of ascites. There is left adrenal gland enlargement consistent with hyperplasia or adenoma. IMPRESSION: Mild bibasilar atelectasis with small pleural effusions. Left adrenal enlargement consistent with hyperplasia or adenoma. Small amount of ascites. Reviewed, Interpreted and Dictated by Patrice Singh III, MD Transcribed by Kaylee Mccallum Authenticated by Patrice Singh III, MD on 02/19/2022 11:25:31 AM [facility]
--- NOTE | 2022-02-19 10:49 | HMH.PHAINT ---
MEDICATION RECONCILIATION COMPLETED ON PATIENT USING LIST FROM [facility]. -SAV BAEZA, OSCARD
--- NOTE | 2022-02-19 11:25 | HMH.PULMCON ---
*Admission Date: 02/18/22 *Reason for consult:: COVID-19 pneumonia, left pleural effusion *History of present illness: Mr. Guillory is a 72-year-old male greater than [id number] smoking history, on Stiolto inhaler therapy, chronic hypoxic respiratory failure on 2 L oxygen therapy at home presented to the hospital complaining of abdominal pain and was found to have left-sided pleural effusion along with testing positive for COVID-19 pneumonia and pulmonary was called for further management. He denies any worsening respiratory distress but admits his respiratory symptoms are at baseline. [facility] History Medical History: Reports:: Congestive Heart Failure, Diabetes Mellitus Type 2, Hyperlipidemia, Hypertension, Internal Pacemaker Denies:: Cancer, Diabetes Mellitus Type 1, MRSA *Have you ever received a pneumonia vaccine?: Yes *Have you received a flu vaccine this season?: Yes Other Medical History: Reports: Arthritis Other Surgeries: Yes: Cardiac Catheterization, Colonoscopy, Open Heart Surgery, Pacemaker Amputation: No - *Social History Last grade of school completed: High school graduate Smoking Status: Current some day smoker Tobacco Type: cigarettes, e-cigarettes # Packs/Day (cigarettes): 1 Alcohol Intake: former *Occupational Status:: unemployed Household Members: children *Travel in the last 8 weeks: None Family Hx:: Diabetes, Heart Attack, Hyperlipidemia, Hypertension ROS - Eyes Reports blurry vision - ENT Denies bleeding gums - Card Reports shortness of breath, Reports shortness of breath with activity - Resp Respiratory: Reports cough, Denies non-productive cough, Denies excessive phlegm production, Denies cough with sputum production, Denies wheezing - GI Gastrointestingal: Reports: abdominal pain - [place] Musculoskeletal: Reports back pain - Psych Denies thoughts of hurting/killing others, Denies thoughts of hurting/killing yourself Meds Home Medications Medication Instructions Recorded Confirmed Type Albuterol Sulfate [Albuterol 2 puffs IH QIDP PRN 08/26/21 02/19/22 History Sulfate Hfa] Buspirone HCl [Buspar 10mg 20 mg PO TID 08/26/21 02/19/22 History tablet] Duloxetine HCl 120 mg PO DAILY 08/26/21 02/19/22 History Empagliflozin [Jardiance] 10 mg PO DAILY 08/26/21 02/19/22 History Famotidine [Heartburn Prevention] 20 mg PO HS 08/26/21 02/19/22 History Gabapentin 800 mg PO HS 08/26/21 02/19/22 History Metformin HCl [Metformin 1000mg 1,000 mg PO BIDWMEAL 08/26/21 02/19/22 History Tablets] Pantoprazole Sodium 20 mg PO DAILY 08/26/21 02/19/22 History Prazosin HCl 15 mg PO HS 08/26/21 02/19/22 History Sennosides/Docusate Sodium 1 each PO BID 08/26/21 02/19/22 History [Docusate Sodium-Sennosides Tab] Tiotropium Br/Olodaterol HCl 2 puffs IH DAILY 08/26/21 02/19/22 History [Stiolto Respimat Inhal [place]] Tramadol HCl [Tramadol 50mg 100 mg PO DAILYP PRN 08/26/21 02/19/22 History Tab] Trazodone HCl 200 mg PO HS 08/26/21 02/19/22 History glipiZIDE [Glipizide] 10 mg PO BID 08/26/21 02/19/22 History aspirin 81 mg tablet,delayed 81 mg PO DAILY #30 tab 09/11/21 02/19/22 Rx release furosemide 20 mg tablet 20 mg PO DAILY tab 10/04/21 02/19/22 History Atorvastatin Calcium [Lipitor 40mg 40 mg PO DAILY 02/19/22 02/19/22 History Tab] Spironolactone [Spironolactone 25 mg PO DAILY 02/19/22 02/19/22 History 25mg Tablet] carvediloL [Carvedilol 12.5mg Tab] 12.5 mg PO BID 02/19/22 02/19/22 History lisinopriL [Lisinopril] 40 mg PO DAILY 02/19/22 02/19/22 History Allergies Allergy/AdvReac Type Severity Reaction Status Date / Time No Known Allergies Allergy Verified 12/13/21 14:37 Exam - Constitutional Constitutional:: Present: no acute distress, comfortable - HENMT Exam HENMT: Present: normocephalic, atraumatic - Eye Exam Eyes:: Present: normal appearance both eyes and related structures - Neck Exam Neck:: Present: normal visual inspection - Respiratory Exam R
[2022-02-20] VITALS (7 sets, daily range): BP systolic 121–132; BP diastolic 69–84; PULSE 67–98; RESP 16–18; TEMP 36.4–36.7; O2SAT 90–100; BMI 32.2
--- NOTE | 2022-02-20 04:55 | PC.NURSE ---
Pt has rested intermittently this shift. Pt has voiced no c/o of SOA or pain. Remains on 1L NC with O2 97-100%.
[2022-02-20 07:14] LABS: MANUAL DIFFERENTIAL MANUAL DIFFERENTIAL (MANUAL DIFF)
[2022-02-20 07:23] LABS: Basophils # 0.1 K/mm3 (0-0.2); Basophils % 0.8 % (0.1-2.0); Eosinophils % 0.7 % (0.1-12.0); Hematocrit 32.4 % (42.0-52.0); Hemoglobin 9.5 g/dL (14.1-18.0); Lymphocytes # 1.5 K/mm3 (0.7-4.5); Lymphocytes % 23.2 % (10-50); Mean Corpuscular HGB Conc 29.1 g/dL (31.8-35.4); Mean Corpuscular Hemoglobin 28.8 pg (27.0-31.2); Mean Corpuscular Volume 98.8 fl (80-94); Mean Platelet Volume 9.6 fl (7.4-10.4); Monocytes # 0.7 K/mm3 (0.1-1.0); Monocytes % 10.1 % (1.7-9.3); Neutrophils # 4.3 K/mm3 (1.8-7.8); Neutrophils % 65.3 % (37.0-80.0); Platelet Count 226 K/mm3 (142-424); Red Blood Count 3.28 M/mm3 (4.60-6.20); Red Cell Distribution Width 19.1 % (11.5-17.5); White Blood Count 6.6 K/mm3 (4.8-10.8)
[2022-02-20 07:44] LABS: Chloride 99 mmol/L (98-107); Sodium 134 mmol/L (136-145)
[2022-02-20 07:45] LABS: Potassium 4.1 mmoL/L (3.5-5.1)
[2022-02-20 07:47] LABS: Anion Gap 12.1 mEq/L (5-15); Blood Urea Nitrogen 20 mg/dl (9-20); Carbon Dioxide 27 mmol/L (22.0-30.0); Creatinine Clearance Estimated 101 mL/min (50-200); Estimated Glomerular Filt Rate 83 ml/min (>60); GFR (African American) 100 ML/MIN (>60)
[2022-02-20 07:48] LABS: Calcium 8.3 mg/dl (8.4-10.2); Glucose 107 mg/dl (74-100)
--- NOTE | 2022-02-20 08:52 | CA_ITS ---
APPROVED REPORT EXAM: Comprehensive 2D, Doppler, and color-flow Echocardiogram Tobacco Stemmer Machine: Renu Tate CRT Ht: 6 ft 0 in Wt: 237lbs BSA: 2.29 BP: 118/66 mmHg Indications: Congestive Heart Failure, COPD, Diabetes, Obesity, Hyperlipidemia, Hypertension/HDD, AAA, CHELO, CABG, PLEURAL EFFUSION, COVID, ASCITES 2D Dimensions LVOT 2.18 cm (M/F) 1.5-2.5 LA Volume 83.50 mL LA Volume Index 36.50 mL/m2 (M/F) 16-34 M-Mode Dimensions RVDd 4.30 cm (0.9-2.6) LA Diam 3.91 cm (1.9-4.0) LVDd 7.34 cm (3.5-5.7) Ao Diam 5.65 cm (2.0-3.7) LVDs 6.49 cm (3.5-5.7) IVSd 1.50 cm (0.6-1.1) PWd 1.59 cm (0.6-1.1) EF (Teich) 24.30% FS 11.60% EDV (Teich) 284.20 mL TAPSE 0.72 (<1.7) ESV (Teich) 215.20 mL LV Diastology E Decel Time 180.00 (160-240 msec) E/A Ratio 1.99 MED E' 7.40 (< 7 cm/sec) MED A' 3.70 cm/s E'/MED E' Ratio 17.91 (>14) LAT E' 9.00 (<10 cm/sec) LAT A' 4.30 cm/s E/LAT E' Ratio 14.72 (>14) Aortic Valve AI PHT 301.00 ms AO Peak GR. 5.80 mmHg Mitral Valve MV E Max Zachary. 132.00 (40-130 cm/s) MV A Velocity 66.00 (40-130 cm/s) E/A Ratio 1.99 MV Decel. Time 180.00 (160-240 ms) MV PHT 53.00 ms Pulmonary Valve PV Peak Velocity 120.00 (50-150 cm/s) Tricuspid Valve TR P. Velocity 347.00 cm/s RAP Estimate 10.00 mmHg RVSP 58.10 mmHg Left Ventricle Left atrium is moderately enlarged, left ventricle is moderately dilated, there is severe reduced left ventricular systolic function, visually estimated ejection fraction 20%, mid to distal septum, anterior wall and apical wall is akinetic, rest of the myocardial segments are globally hypokinetic. Diastolic parameters are inconclusive. Right Ventricle Right atrium and right ventricle moderately enlarged, contractility right ventricle is moderately reduced, there is pacemaker or an AICD lead seen in right ventricle. Aortic Valve Aortic valve is minimally thickened and fibrosed there is no aortic stenosis or aortic insufficiency. Mitral Valve Mitral valve has mitral annular calcification which extends in both anterior posterior mitral leaflet, there is no mitral stenosis, there is moderate mitral regurgitation. Tricuspid Valve Tricuspid valve is grossly normal, there is moderate tricuspid regurgitation, calculated right ventricular systolic pressure is 48 mmHg. Pulmonic Valve Pulmonic valve is poorly visualized. Great Vessels Aortic root is normal size. Inferior vena cava is dilated without significant inspiratory collapse. Pericardium No significant pericardial effusion noted. Conclusion 1. Biatrial enlargement, dilated left ventricle, severe reduced left ventricular systolic function, visually estimated ejection fraction 20% with segmental wall motion abnormality described above, diastolic parameters are inconclusive. 2. Moderately enlarged right ventricle with reduced contractility. 3. Moderate mitral and tricuspid regurgitation, calculated right ventricular systolic pressure 48 mmHg. 4. No significant pericardial effusion. 5. Inferior vena cava is dilated without significant inspiratory collapse. Electronically signed by : Randal Mendieta MD 02/20/2022 20:08:21
[2022-02-20 09:09] LABS: Lymphocytes % 23 % (10-50); Monocytes % 4 % (2-9); Neutrophils % 72 % (42-76); Platelet Estimate Normal; Total Cells Counted 100
[2022-02-20 09:10] LABS: RBC Morphology Normal
--- NOTE | 2022-02-20 09:32 | HMH.CNCARD ---
<Malathi Nguyen - Last Filed: 02/20/22 09:32> History of Present Illness Consult date: 02/20/22 Requesting physician: Louis Aguirre Consult reason: chest pain Chief complaint: chest and abdominal pain History of present illness: This is a 72-year-old white gentleman who presented to the emergency department complaints of chest pain and abdominal pain. The patient states that he was having epigastric pain and fullness that radiated down to his abdomen around the umbilical area. The patient states that he was having bowel movements and thought that he might have a hernia that is why he decided to come to the emergency department. He does report having some intermittent shortness of breath and lower extremity edema as well. He states that his edema typically improves with elevating his legs. The patient had an abdominal CT and was found to have pelvic and abdominal ascites as well as worsening pleural effusions. The patient has known systolic congestive heart failure and ischemic cardiomyopathy. His preliminary echocardiogram shows an ejection fraction of approximately 20%. He has known coronary artery disease and is status post coronary artery bypass grafting in 1998. The patient did have a slight bump in his troponin on admission. He states that his epigastric pain has improved but has not completely resolved. He denies any fever, chills, nausea, vomiting, diarrhea. He does have some mild orthopnea which he states that he has had for several years. [facility] History I have reviewed the patient's past medical history: Yes Medical History: Reports:: Congestive Heart Failure, Coronary Artery Disease, Diabetes Mellitus Type 2, Hyperlipidemia, Hypertension, Internal Pacemaker Denies:: Cancer, Diabetes Mellitus Type 1, MRSA *Have you ever received a pneumonia vaccine?: Yes *Have you received a flu vaccine this season?: Yes Other Medical History: Reports: Arthritis Other Surgeries: Yes: Cardiac Catheterization, Colonoscopy, Open Heart Surgery, Pacemaker Amputation: No - *Social History Last grade of school completed: High school graduate Smoking Status: Current some day smoker Tobacco Type: cigarettes, e-cigarettes # Packs/Day (cigarettes): 1 Alcohol Intake: former *Occupational Status:: unemployed Household Members: children *Travel in the last 8 weeks: None Family Hx:: Diabetes, Heart Attack, Hyperlipidemia, Hypertension Meds Home Medications Medication Instructions Recorded Confirmed Type Albuterol Sulfate [Albuterol 2 puffs IH QIDP PRN 08/26/21 02/19/22 History Sulfate Hfa] Buspirone HCl [Buspar 10mg 20 mg PO TID 08/26/21 02/19/22 History tablet] Duloxetine HCl 120 mg PO DAILY 08/26/21 02/19/22 History Empagliflozin [Jardiance] 10 mg PO DAILY 08/26/21 02/19/22 History Famotidine [Heartburn Prevention] 20 mg PO HS 08/26/21 02/19/22 History Gabapentin 800 mg PO HS 08/26/21 02/19/22 History Metformin HCl [Metformin 1000mg 1,000 mg PO BIDWMEAL 08/26/21 02/19/22 History Tablets] Pantoprazole Sodium 20 mg PO DAILY 08/26/21 02/19/22 History Prazosin HCl 15 mg PO HS 08/26/21 02/19/22 History Sennosides/Docusate Sodium 1 each PO BID 08/26/21 02/19/22 History [Docusate Sodium-Sennosides Tab] Tiotropium Br/Olodaterol HCl 2 puffs IH DAILY 08/26/21 02/19/22 History [Stiolto Respimat Inhal [place]] Tramadol HCl [Tramadol 50mg 100 mg PO DAILYP PRN 08/26/21 02/19/22 History Tab] Trazodone HCl 200 mg PO HS 08/26/21 02/19/22 History glipiZIDE [Glipizide] 10 mg PO BID 08/26/21 02/19/22 History aspirin 81 mg tablet,delayed 81 mg PO DAILY #30 tab 09/11/21 02/19/22 Rx release furosemide 20 mg tablet 20 mg PO DAILY tab 10/04/21 02/19/22 History Atorvastatin Calcium [Lipitor 40mg 40 mg PO DAILY 02/19/22 02/19/22 History Tab] Spironolactone [Spironolactone 25 mg PO DAILY 02/19/22 02/19/22 History 25mg Tablet] carvediloL [Carvedilol 12.5mg Tab] 12.5 mg PO BID 02/19/22 02/19/22 History lisinopriL [Lisinopril] 40
--- NOTE | 2022-02-20 09:33 | HMH.PULMPN ---
Internal Medicine - PN: Subj *Date: 02/20/22 *Time: 11:23 Interval history: No acute respiratory vents overnight. Exam - Constitutional Constitutional:: Present: no acute distress, comfortable - HENMT Exam HENMT: Present: normocephalic, atraumatic - Eye Exam Eyes:: Present: normal appearance both eyes and related structures - Neck Exam Neck:: Present: normal visual inspection - Respiratory Exam Respiratory:: Present: able to speak in complete sentences, no respiratory distress. Absent: wheezing - Cardiovascular Exam Cardiac:: Present: S1, S2 - GI Exam GI:: Present: soft - Skin Exam Skin: Present: warm, no rash - Neurological Exam Neurological: Present: alert, awake - Extremities Exam Extremities: Present: no cyanosis, no clubbing - Psychiatric Exam Psychiatric: Present: normal affect Assessment and Plan (1) Abdominal pain Status: Acute Qualifiers: Abdominal location: generalized Qualified Code(s): R10.84 - Generalized abdominal pain Category: Medical Code(s): R10.9 - Unspecified abdominal pain (2) Pleural effusion Status: Acute Category: Medical Code(s): J90 - Pleural effusion, not elsewhere classified (3) Ascites Status: Acute Qualifiers: Ascites type: other type Qualified Code(s): R18.8 - Other ascites Category: Medical Code(s): R18.8 - Other ascites (4) COPD (chronic obstructive pulmonary disease) Status: Chronic Qualifiers: COPD type: unspecified COPD Qualified Code(s): J44.9 - Chronic obstructive pulmonary disease, unspecified Category: Medical Code(s): J44.9 - Chronic obstructive pulmonary disease, unspecified (5) Hx of CABG Problem details: 6 vessel (1998) Status: Chronic Category: Surgical Code(s): Z95.1 - Presence of aortocoronary bypass graft (6) COVID-19 Status: Acute Category: Medical Code(s): U07.1 - COVID-19 (7) Class 1 obesity with serious comorbidity and body mass index (BMI) of 32.0 to 32.9 in adult Status: Acute Category: Medical Code(s): E66.9 - Obesity, unspecified; Z68.32 - Body mass index [BMI] 32.0-32.9, adult - Assessment and plan all Dx Assessment and Plan for all problems:: #COVID-19 pneumonia: # Left pleural effusion: # COPD exacerbation: 2-year-old male greater than [id number] smoking history, on Stiolto inhaler therapy, chronic hypoxic respiratory failure on 2 L oxygen therapy at home presented to the hospital complaining of abdominal pain and was found to have left-sided pleural effusion along with testing positive for COVID-19 pneumonia and pulmonary was called for further management. Patient said that he was tested positive for COVID-19 pneumonia on of last month that was managed as an outpatient basis. CT chest did not show any evidence of airspace disease of the lungs as opacities. Bilateral pleural effusions left greater than right with small loculation on the left-sided pleural effusion. The effusions are so small on the risks outweigh the benefits in performing thoracentesis in this patient especially in the setting of his baseline respiratory status. CT also showed ascites. Patient denies any significant alcoholism. Denies any known history of hep C. His COVID-19 pneumonia given his asymptomatic based on respiratory status we will continue to monitor especially in the setting of this will likely can be a false positive given his recent positive testing. On Admission - He denies any worsening respiratory distress but admits his respiratory symptoms are at baseline. Will examination patient saturating 99% on 3 L nasal cannula, weaned to 1 L. Auscultation: Bilateral distant/decreased breath sounds no wheezing appreciated. Interval update: Auscultation improved with no wheezing. Weaned to room air. Continue to monitor. Plan: -Trelegy 100 inhaler along with DuoNebs every 6 hours on as-needed basis. -No need for active COVID-19 treatment at this point of time. -Doxycy
[2022-02-20 09:56] LABS: Vancomycin,Trough 16.8 ug/mL (5.0-10.0)
--- NOTE | 2022-02-20 10:05 | HMH.ACPN2 ---
Internal Medicine - PN: Subj *Date: 02/20/22 *Time: 10:05 Interval history: 72-year-old male patient sitting up in bed resting quietly with eyes closed, awakens to verbal stimuli. He denies any chest pain or shortness of breath during the night. Current oxygenation status 97% on 1 L per nasal cannula Exam Vital signs and Labs for Last 24 Hours: Temp Pulse Resp BP Pulse Ox 97.8 F 67 17 121/69 97 02/20/22 08:00 02/20/22 08:00 02/20/22 08:00 02/20/22 08:00 02/20/22 08:00 Laboratory Results - last 24 hr 02/20/22 06:25: WBC 6.6 D, RBC 3.28 L, Hgb 9.5 L, Hct 32.4 L, MCV 98.8 H, MCH 28.8, MCHC 29.1 L, RDW 19.1 H, Plt Count 226, MPV 9.6, Neut % (Auto) 65.3, Lymph % (Auto) 23.2, [place] % (Auto) 10.1 H, Eos % (Auto) 0.7, Baso % (Auto) 0.8, Neut # (Auto) 4.3, Lymph # (Auto) 1.5, [place] # (Auto) 0.7, Eos # (Auto) 0.0, Baso # (Auto) 0.1, Total Counted 100, Neutrophils % (Manual) 72, Lymphocytes % (Manual) 23, Monocytes % (Manual) 4, Metamyelocytes % 1.0, Platelet Estimate Normal, RBC Morphology Normal 02/20/22 06:25: Sodium 134 L, Potassium 4.1, Chloride 99, Carbon Dioxide 27, Anion Gap 12.1, BUN 20 D, Creatinine 0.90, Estimated Creat Clear 101, Estimated GFR 83, Est GFR ( Amer) 100, Glucose 107 H D, Calcium 8.3 L I & O for Last 24 hours: Intake & Output 02/17/22 02/18/22 02/19/22 02/20/22 23:59 23:59 23:59 23:59 Intake Total 100 / 100 1050 / 1050 510 / 510 Output Total 400 / 700 650 / 650 Balance 100 / 100 650 / 350 -140 / -140 Weight 237 lb 9 oz 238 lb 1.588 oz 238 lb 1.588 oz - Constitutional no acute distress - *Routine HEENT Exam Head: Present: normocephalic Eye: Present: EOMI ENT: Present: mucous membranes moist - *Routine Neck Exam Present: trachea midline. Absent: tracheal deviation - *Routine Respiratory Exam Present: CTA bilaterally. Absent: accessory muscle use - *Routine Cardiovascular Exam Present: RRR - *Routine Abdominal Exam Present: soft, normoactive bowel sounds. Absent: tenderness, firm - *Routine Extremities Exam Present: full ROM, pulses intact. Absent: cyanosis, clubbing - *Routine Skin Exam Present: intact, dry. Absent: cyanosis, erythema - *Routine Neurological Exam Present: alert, oriented X3. Absent: motor deficit - Routine Psychiatric Exam Present: normal affect, normal thought process. Absent: auditory hallucinations Assessment and Plan (1) Non-STEMI (non-ST elevated myocardial infarction) Status: Acute Category: Medical Code(s): I21.4 - Non-ST elevation (NSTEMI) myocardial infarction (2) Coronary artery disease Status: Chronic Qualifiers: Qualified Code(s): I25.118 - Atherosclerotic heart disease of nikolai coronary artery with other forms of angina pectoris Category: Medical Code(s): I25.10 - Atherosclerotic heart disease of nikolai coronary artery without angina pectoris (3) Ischemic cardiomyopathy Status: Acute Category: Medical Code(s): I25.5 - Ischemic cardiomyopathy (4) Acute on chronic systolic (congestive) heart failure Status: Acute Category: Medical Code(s): I50.23 - Acute on chronic systolic (congestive) heart failure (5) Abdominal pain Status: Acute Qualifiers: Qualified Code(s): R10.84 - Generalized abdominal pain Category: Medical Code(s): R10.9 - Unspecified abdominal pain (6) Pleural effusion Status: Acute Category: Medical Code(s): J90 - Pleural effusion, not elsewhere classified (7) Ascites Status: Acute Qualifiers: Qualified Code(s): R18.8 - Other ascites Category: Medical Code(s): R18.8 - Other ascites (8) COPD (chronic obstructive pulmonary disease) Status: Chronic Qualifiers: Qualified Code(s): J44.9 - Chronic obstructive pulmonary disease, unspecified Category: Medical Code(s): J44.9 - Chronic obstructive pulmonary disease, unspecified (9) Hx of CABG Problem details: 6 vessel (1998) Status: Chronic Category: Surgical C
[2022-02-20 14:40] LABS: Vancomycin,Peak 14.5 ug/ml (11-39)
--- NOTE | 2022-02-20 18:54 | PC.NURSE ---
Pt is alert and oriented x4. He's been weaned to RA and tolerating well. He has used the urinal at the bedside. Almost 2L out this shift. Bed is locked and in the lowest position, call light within reach. No complaints have been voiced.
[2022-02-21] VITALS (21 sets, daily range): BP systolic 105–163; BP diastolic 58–96; PULSE 60–96; RESP 14–20; TEMP 36.5–36.9; O2SAT 90–98; BMI 31.7
--- NOTE | 2022-02-21 | IR_ITS ---
APPROVED REPORT Patient Location: Inpatient Roll Contour Grinder: WILLIAM Castillo RT (R) PROCEDURES Left heart catheterization Left ventriculogram Selective coronary angiogram Selective engagement of the left internal mammary artery Selective engagement of the saphenous vein graft to the circumflex artery Selective engagement of the saphenous vein graft to the right coronary Drug-eluting stent deployment to the saphenous vein graft supplying the circumflex artery Drug-eluting stent deployment to the saphenous vein graft supplying the right coronary artery INDICATION Coronary artery disease, History of coronary artery bypass surgery, Acute non-ST elevation myocardial infarction Informed consent was obtained prior to the procedure. COMPLICATIONS None Estimated Blood Loss: Less than 10 ML TECHNIQUE One percent lidocaine used to anesthetize the right groin. The right femoral artery was accessed via the Seldinger technique and a 5 [place] sheath was placed in the right femoral artery. A JL 4, JR4 catheter were used to perform left heart catheterization, left ventriculogram selective coronary angiography as well as selective engagement of the 2 vein grafts and the left internal mammary artery. At the end the diagnostic angiogram therapeutic heparin was administered and the 5 [place] sheath was exchanged for a 6 [place] radial sheath. An LCB guide catheter was placed in the saphenous vein graft supplying the circumflex artery followed by a Choice PT extra-support wire. A 3.5 x 23 mm Xience drug-eluting stent was deployed at 24 ranjit reducing the critical stenosis to 0%. The apparatus was removed and used to cannulate the saphenous vein graft to the right coronary artery where diagnostic angiography was performed followed by placement of the same wire distally. A 3.5 x 15 mm Xience drug-eluting stent was then deployed at 24 ranjit and this vein graft reducing the stenosis to 10%. At the end of the procedure the apparatus was removed the groin was reprepped closure change sheath was removed and hemostasis achieved using Perclose device patient was transferred the postop putting in stable condition ANGIOGRAPHIC RESULTS The left main artery Normal The left anterior descending artery Has proximal and mid vessel 50 and 70% stenosis then occluded at mid vessel. The circumflex artery Probably dominant vessel and occluded at mid vessel The right coronary artery Probably nondominant and proximally occluded The ERICKSON ventriculogram reveals Dilated ventricle anterior apical akinesis ejection fraction estimated 20% The left ventricular end-diastolic pressure 10 mmHg FINE to LAD widely patent Saphenous vein graft to circumflex artery has a proximal long eccentric 90% stenosis followed by mid vessel 40 to 50% stenoses Saphenous vein graft to right coronary artery has a proximal valve which gives a 50% angiographic stenosis. Distally there is a concentric 80 to 90% stenosis. The anastomosis has 70% disease in both the anastomosis and [place] right coronary artery. The right coronary artery itself appears to be a small to moderate amount of myocardium IMPRESSION Coronary artery disease as described above Successful stenting of 2 saphenous vein grafts as described above Severe left ventricular dysfunction with large regional wall motion abnormality which is chronic Normal left ventricular end-diastolic pressure PLAN 1. Dual antiplatelet therapy 2. Standard therapy for systolic heart failure 3. Standard therapy for coronary artery disease/ischemic disease 4. LDL less than 55 to be achieved with high intensity statin 5. Cardiac rehabilitation once over COVID 6. Avoidance of tobacco products Electronically signed b
--- NOTE | 2022-02-21 01:30 | ECG_ITS ---
APPROVED REPORT Exam: Resting ECG HR:79 bpm ECG Measurements Heart Rate 79 AXES NV 125 P -75 QRSd 159 QRS 83 QT 422 T 92 QTc 457 Conclusion JUNCTIONAL RHYTHM WITH OCCASIONAL VENTRICULAR PREMATURE COMPLEXES INTRAVENTRICULAR CONDUCTION DELAY [130+ ms QRS DURATION] INFERIOR MYOCARDIAL INFARCTION , PROBABLY OLD [40+ ms Q WAVE AND/OR ST/T ABNORMALITY IN II/aVF] ABNORMAL ECG UNCONFIRMED REPORT Electronically signed by : Khanh Scott MD 02/21/2022 11:44:55
[2022-02-21 07:36] LABS: Basophils % 0.4 % (0.1-2.0); Eosinophils # 0.1 K/mm3 (0.0-0.4); Eosinophils % 0.9 % (0.1-12.0); Hematocrit 32.6 % (42.0-52.0); Hemoglobin 9.7 g/dL (14.1-18.0); Lymphocytes # 2.2 K/mm3 (0.7-4.5); Lymphocytes % 28.2 % (10-50); Mean Corpuscular HGB Conc 29.6 g/dL (31.8-35.4); Mean Corpuscular Hemoglobin 28.9 pg (27.0-31.2); Mean Corpuscular Volume 97.7 fl (80-94); Mean Platelet Volume 10.3 fl (7.4-10.4); Monocytes # 0.7 K/mm3 (0.1-1.0); Monocytes % 8.3 % (1.7-9.3); Neutrophils # 4.8 K/mm3 (1.8-7.8); Neutrophils % 62.2 % (37.0-80.0); Platelet Count 238 K/mm3 (142-424); Red Blood Count 3.34 M/mm3 (4.60-6.20); Red Cell Distribution Width 19.7 % (11.5-17.5); White Blood Count 7.8 K/mm3 (4.8-10.8)
[2022-02-21 07:48] LABS: Chloride 101 mmol/L (98-107)
[2022-02-21 07:49] LABS: Potassium 3.3 mmoL/L (3.5-5.1); Sodium 138 mmol/L (136-145)
[2022-02-21 07:51] LABS: Blood Urea Nitrogen 23 mg/dl (9-20); Creatinine Clearance Estimated 99 mL/min (50-200); Estimated Glomerular Filt Rate 83 ml/min (>60); GFR (African American) 100 ML/MIN (>60)
[2022-02-21 07:52] LABS: Anion Gap 8.3 mEq/L (5-15); Calcium 8.4 mg/dl (8.4-10.2); Carbon Dioxide 32 mmol/L (22.0-30.0); Glucose 114 mg/dl (74-100)
[2022-02-21 08:10] LABS: Alanine Aminotransferase 62 U/L (12-78); Aspartate Amino Transferase 76 U/L (17-59); Bilirubin,Unconjugated 1.7 mg/dL (0.0-1.1)
[2022-02-21 08:11] LABS: Albumin Level 3.7 g/dl (3.5-5.0); Alkaline Phosphatase 93 U/L (38-126); Bilirubin,Direct 0.6 mg/dl (0.0-0.4); Bilirubin,Indirect 1.7 mg/dL (0.0-0.9); Bilirubin,Total 2.3 mg/dl (0.2-1.3); Chol/HDL Ratio 2.6 (1-3.5); Cholesterol 78 mg/dl (140-200); HDL Cholesterol 30 mg/dl (40-60); Total Protein,Serum 6.6 g/dl (6.3-8.2); Triglycerides 70 mg/dl (30-150); VLDL Cholesterol 14 mg/dL (0-40)
[2022-02-21 08:22] LABS: Direct LDL Cholesterol 38.64 mg/dL (100-129)
--- NOTE | 2022-02-21 09:26 | HMH.PULMPN ---
Internal Medicine - PN: Subj *Date: 02/21/22 *Time: 09:26 Assessment and Plan (1) Abdominal pain Status: Acute Qualifiers: Abdominal location: generalized Qualified Code(s): R10.84 - Generalized abdominal pain Category: Medical Code(s): R10.9 - Unspecified abdominal pain (2) Pleural effusion Status: Acute Category: Medical Code(s): J90 - Pleural effusion, not elsewhere classified (3) Ascites Status: Acute Qualifiers: Ascites type: other type Qualified Code(s): R18.8 - Other ascites Category: Medical Code(s): R18.8 - Other ascites (4) COPD (chronic obstructive pulmonary disease) Status: Chronic Qualifiers: COPD type: unspecified COPD Qualified Code(s): J44.9 - Chronic obstructive pulmonary disease, unspecified Category: Medical Code(s): J44.9 - Chronic obstructive pulmonary disease, unspecified (5) Hx of CABG Problem details: 6 vessel (1998) Status: Chronic Category: Surgical Code(s): Z95.1 - Presence of aortocoronary bypass graft (6) COVID-19 Status: Acute Category: Medical Code(s): U07.1 - COVID-19 (7) Class 1 obesity with serious comorbidity and body mass index (BMI) of 32.0 to 32.9 in adult Status: Acute Category: Medical Code(s): E66.9 - Obesity, unspecified; Z68.32 - Body mass index [BMI] 32.0-32.9, adult - Assessment and plan all Dx Assessment and Plan for all problems:: #COVID-19 pneumonia: # Left pleural effusion: # COPD exacerbation: 2-year-old male greater than [id number] smoking history, on Stiolto inhaler therapy, chronic hypoxic respiratory failure on 2 L oxygen therapy at home presented to the hospital complaining of abdominal pain and was found to have left-sided pleural effusion along with testing positive for COVID-19 pneumonia and pulmonary was called for further management. Patient said that he was tested positive for COVID-19 pneumonia on of last month that was managed as an outpatient basis. CT chest did not show any evidence of airspace disease of the lungs as opacities. Bilateral pleural effusions left greater than right with small loculation on the left-sided pleural effusion. The effusions are so small on the risks outweigh the benefits in performing thoracentesis in this patient especially in the setting of his baseline respiratory status. CT also showed ascites. Patient denies any significant alcoholism. Denies any known history of hep C. His COVID-19 pneumonia given his asymptomatic based on respiratory status we will continue to monitor especially in the setting of this will likely can be a false positive given his recent positive testing. Patient on admission on 3 L nasal cannula with bilateral diffuse wheezing commission trilogy inhaler with significant improvement in his breath sounds and oxygen requirements, weaned to room air. Interval update: Continues to remain on room air. No acute respiratory vents overnight. Echocardiogram showed EF of 20%. Plan: -Trelegy 100 inhaler along with DuoNebs every 6 hours on as-needed basis. -No need for active COVID-19 treatment at this point of time. -Doxycycline 100 mg BID along with prednisone 40 mg daily for 5 days -Evaluation abdominal pain and ascites as per primary team #Thank you for involving pulmonary in this patient care. We will continue to follow.
--- NOTE | 2022-02-21 09:43 | HMH.PNCARD ---
Subjective Date: 02/21/22 Time: 08:30 Principal diagnosis: non-stemi Interval history: This is a 72-year-old white gentleman who was admitted to the hospital with complaints of chest pain and abdominal pain. The patient was having epigastric pain and fullness that radiated down to his abdomen and around his umbilical area. The patient was also found to have an acute exacerbation of his systolic congestive heart failure. His ejection fraction is 20%. The patient has known coronary artery disease and status post coronary artery bypass grafting in 1998. The patient did have a bump in his troponin consistent with a non-ST elevation myocardial infarction. The patient has been set up for left cardiac catheterization today to evaluate his coronary artery disease due to his non-STEMI and acute exacerbation of his systolic congestive heart failure. The patient states that his shortness of breath has improved with diuresis. He is still having a little shortness of breath with exertion. He denies any chest pain or pressure. He denies any fever, chills, nausea, vomiting, diarrhea, PND or orthopnea. He denies any lower extremity edema. Exam Vital signs and Labs for Last 24 Hours: Temp Pulse Resp BP Pulse Ox 98.2 F 80 18 129/58 L 92 L 02/21/22 08:00 02/21/22 08:00 02/21/22 08:00 02/21/22 08:00 02/21/22 08:00 Laboratory Results - last 24 hr 02/20/22 08:54: Vancomycin Trough 16.8 H 02/20/22 12:52: Vancomycin Peak 14.5 02/21/22 07:17: Sodium 138, Potassium 3.3 L, Chloride 101, Carbon Dioxide 32 H, Anion Gap 8.3, BUN 23 H, Creatinine 0.90, Estimated Creat Clear 99, Estimated GFR 83, Est GFR ( Amer) 100, Glucose 114 H, Calcium 8.4 02/21/22 07:17: WBC 7.8, RBC 3.34 L, Hgb 9.7 L, Hct 32.6 L, MCV 97.7 H, MCH 28.9, MCHC 29.6 L, RDW 19.7 H, Plt Count 238, MPV 10.3, Neut % (Auto) 62.2, Lymph % (Auto) 28.2, [place] % (Auto) 8.3, Eos % (Auto) 0.9, Baso % (Auto) 0.4, Neut # (Auto) 4.8, Lymph # (Auto) 2.2, [place] # (Auto) 0.7, Eos # (Auto) 0.1, Baso # (Auto) 0.0 02/21/22 07:17: Total Bilirubin 2.3 H, Direct Bilirubin 0.6 H, Conjugated Bilirubin 0.0, Indirect Bilirubin 1.7 H, Unconjugated Bilirubin 1.7 H, AST 76 H D, ALT 62 D, Alkaline Phosphatase 93, Total Protein 6.6, Albumin 3.7, Triglycerides 70, Cholesterol 78 L, LDL Cholesterol Direct 38.64 L, VLDL Cholesterol 14, HDL Cholesterol 30 L, Cholesterol/HDL Ratio 2.6 I & O for Last 24 hours: Intake & Output 02/18/22 02/19/22 02/20/22 02/21/22 23:59 23:59 23:59 23:59 Intake Total 100 / 100 1050 / 1050 1350 / 1350 Output Total 400 / 700 2600 / 3550 1550 / 1550 Balance 100 / 100 650 / 350 -1250 / -2200 -1550 / -1550 Weight 237 lb 9 oz 238 lb 1.588 oz 238 lb 1.588 oz 234 lb 8 oz - Constitutional no acute distress, obese - *Routine HEENT Exam Head: Present: normocephalic, atraumatic Eye: Present: EOMI, PERRL ENT: Present: mucous membranes moist - *Routine Neck Exam Present: supple, full ROM, normal carotid upstroke. Absent: JVD, carotid bruit, lymphadenopathy - *Routine Respiratory Exam Present: CTA bilaterally - *Routine Cardiovascular Exam Present: RRR, Normal S1, Normal S2. Absent: murmur - *Routine Abdominal Exam Present: soft, normoactive bowel sounds. Absent: tenderness, distended - *Routine Extremities Exam Present: edema (Trace bilateral lower extremity edema), full ROM, pulses intact, normal capillary refill. Absent: cyanosis, clubbing - *Routine Skin Exam Present: intact, warm. Absent: erythema, rash - *Routine Neurological Exam Present: alert, oriented X3, CN II-XII intact. Absent: sensory deficit, motor deficit Progress Note: A&P (1) Non-STEMI (non-ST elevated myocardial infarction) Status: Acute (2) Ischemic cardiomyopathy Status: Acute (3) Acute on chronic systolic (congestive) heart failure Status: Acute (4) Abdominal pain Status: Acute (5) Pleural effusion Status: Acute (6) Ascites Status: Acute (7) COPD (chronic
[2022-02-21 13:07] LABS: CATHL Activated Clotting Time 248 SEC (74-125)
--- NOTE | 2022-02-21 14:55 | HMH.ACPN2 ---
Internal Medicine - PN: Subj *Date: 02/21/22 *Time: 08:23 Interval history: 72-year-old male patient sitting up in bed resting quietly with eyes closed, as well as verbal stimuli. Denies any chest pain or shortness of breath during the night. Currently interrogation of pacer being performed. Exam Vital signs and Labs for Last 24 Hours: Temp Pulse Resp BP Pulse Ox 98.2 F 79 20 142/96 H 91 L 02/21/22 08:00 02/21/22 13:35 02/21/22 13:35 02/21/22 13:35 02/21/22 13:35 Laboratory Results - last 24 hr 02/20/22 12:52: Vancomycin Peak 14.5 02/21/22 07:17: Sodium 138, Potassium 3.3 L, Chloride 101, Carbon Dioxide 32 H, Anion Gap 8.3, BUN 23 H, Creatinine 0.90, Estimated Creat Clear 99, Estimated GFR 83, Est GFR ( Amer) 100, Glucose 114 H, Calcium 8.4 02/21/22 07:17: WBC 7.8, RBC 3.34 L, Hgb 9.7 L, Hct 32.6 L, MCV 97.7 H, MCH 28.9, MCHC 29.6 L, RDW 19.7 H, Plt Count 238, MPV 10.3, Neut % (Auto) 62.2, Lymph % (Auto) 28.2, [place] % (Auto) 8.3, Eos % (Auto) 0.9, Baso % (Auto) 0.4, Neut # (Auto) 4.8, Lymph # (Auto) 2.2, [place] # (Auto) 0.7, Eos # (Auto) 0.1, Baso # (Auto) 0.0 02/21/22 07:17: Total Bilirubin 2.3 H, Direct Bilirubin 0.6 H, Conjugated Bilirubin 0.0, Indirect Bilirubin 1.7 H, Unconjugated Bilirubin 1.7 H, AST 76 H D, ALT 62 D, Alkaline Phosphatase 93, Total Protein 6.6, Albumin 3.7, Triglycerides 70, Cholesterol 78 L, LDL Cholesterol Direct 38.64 L, VLDL Cholesterol 14, HDL Cholesterol 30 L, Cholesterol/HDL Ratio 2.6 02/21/22 12:29: Activated Clotting Time 248 H* I & O for Last 24 hours: Intake & Output 02/18/22 02/19/22 02/20/22 02/21/22 23:59 23:59 23:59 23:59 Intake Total 100 / 100 1050 / 1050 1350 / 1350 Output Total 400 / 700 2600 / 3550 1550 / 1550 Balance 100 / 100 650 / 350 -1250 / -2200 -1550 / -1550 Weight 237 lb 9 oz 238 lb 1.588 oz 238 lb 1.588 oz 234 lb 8 oz - Constitutional no acute distress - *Routine HEENT Exam Head: Present: normocephalic Eye: Present: EOMI ENT: Present: mucous membranes moist - *Routine Neck Exam Present: trachea midline. Absent: tracheal deviation - *Routine Respiratory Exam Present: CTA bilaterally. Absent: accessory muscle use - *Routine Cardiovascular Exam Present: RRR - *Routine Abdominal Exam Present: soft, normoactive bowel sounds. Absent: tenderness, firm - *Routine Extremities Exam Present: edema, full ROM, pulses intact. Absent: cyanosis, clubbing - *Routine Skin Exam Present: intact, dry. Absent: cyanosis, erythema - *Routine Neurological Exam Present: alert, oriented X3. Absent: motor deficit, altered mental status - Routine Psychiatric Exam Present: normal affect, normal thought process. Absent: visual hallucinations Assessment and Plan (1) Non-STEMI (non-ST elevated myocardial infarction) Status: Acute Category: Medical Code(s): I21.4 - Non-ST elevation (NSTEMI) myocardial infarction (2) Ischemic cardiomyopathy Status: Acute Category: Medical Code(s): I25.5 - Ischemic cardiomyopathy (3) Acute on chronic systolic (congestive) heart failure Status: Acute Category: Medical Code(s): I50.23 - Acute on chronic systolic (congestive) heart failure (4) Abdominal pain Status: Acute Qualifiers: Abdominal location: generalized Qualified Code(s): R10.84 - Generalized abdominal pain Category: Medical Code(s): R10.9 - Unspecified abdominal pain (5) Pleural effusion Status: Acute Category: Medical Code(s): J90 - Pleural effusion, not elsewhere classified (6) Ascites Status: Acute Qualifiers: Ascites type: other type Qualified Code(s): R18.8 - Other ascites Category: Medical Code(s): R18.8 - Other ascites (7) COPD (chronic obstructive pulmonary disease) Status: Chronic Qualifiers: COPD type: unspecified COPD Qualified Code(s): J44.9 - Chronic obstructive pulmonary disease, unspecified Category: Medical Code(s): J44.9 - Chronic obstructive pulmonary diseas
--- NOTE | 2022-02-21 18:16 | PC.NURSE ---
Pt has done fine since arriving back to the floor. VSS. Rt groin cath site CDI. No bruising or hematoma noted. Lung sounds CTA. Active bowel sounds in all 4 quads, no BM noted. Pt has used the urinal at times and other times will walk independently to the restroom w/ steady gait and balance. No other acute changes or complaints, will continue to monitor.
[2022-02-22] VITALS: BP 111/69; PULSE 73; PULSE 80; RESP 16; TEMP 37.1; O2SAT 94
[2022-02-22 04:00] VITALS: BP 130/86; PULSE 73; PULSE 80; RESP 18; TEMP 36.6; O2SAT 97
[2022-02-22 05:00] VITALS: BMI 31.8
[2022-02-22 07:00] LABS: Chloride 99 mmol/L (98-107); Potassium 3.2 mmoL/L (3.5-5.1); Sodium 136 mmol/L (136-145)
[2022-02-22 07:03] LABS: Anion Gap 6.2 mEq/L (5-15); Blood Urea Nitrogen 20 mg/dl (9-20); Carbon Dioxide 34 mmol/L (22.0-30.0); Creatinine Clearance Estimated 99 mL/min (50-200); Estimated Glomerular Filt Rate 83 ml/min (>60); GFR (African American) 100 ML/MIN (>60); Glucose 104 mg/dl (74-100)
[2022-02-22 07:09] LABS: Basophils % 0.3 % (0.1-2.0); Eosinophils % 0.6 % (0.1-12.0); Hematocrit 31.6 % (42.0-52.0); Hemoglobin 9.5 g/dL (14.1-18.0); Mean Corpuscular HGB Conc 30.1 g/dL (31.8-35.4); Mean Corpuscular Hemoglobin 29.1 pg (27.0-31.2); Mean Corpuscular Volume 96.7 fl (80-94); Mean Platelet Volume 9.2 fl (7.4-10.4); Monocytes # 0.6 K/mm3 (0.1-1.0); Monocytes % 8.4 % (1.7-9.3); Neutrophils # 4.9 K/mm3 (1.8-7.8); Neutrophils % 64.7 % (37.0-80.0); Platelet Count 248 K/mm3 (142-424); Red Blood Count 3.27 M/mm3 (4.60-6.20); Red Cell Distribution Width 19.7 % (11.5-17.5); White Blood Count 7.6 K/mm3 (4.8-10.8)
[2022-02-22 08:00] VITALS: BP 112/60; PULSE 75; PULSE 85; RESP 20; TEMP 36.6; O2SAT 94
--- NOTE | 2022-02-22 08:17 | HMH.PULMPN ---
Internal Medicine - PN: Subj *Date: 03/12/22 *Time: 14:52 Interval history: No acute respiratory vents overnight Exam - Constitutional Constitutional:: Present: no acute distress, comfortable - HENMT Exam HENMT: Present: normocephalic - Eye Exam Eyes:: Present: normal appearance both eyes and related structures - Neck Exam Neck:: Present: normal visual inspection - Respiratory Exam Respiratory:: Present: able to speak in complete sentences, no respiratory distress. Absent: wheezing - Cardiovascular Exam Cardiac:: Present: S1, S2 - Skin Exam Skin: Present: warm - Neurological Exam Neurological: Present: alert, awake - Extremities Exam Extremities: Present: no cyanosis, no clubbing Assessment and Plan (1) Non-STEMI (non-ST elevated myocardial infarction) Status: Acute Category: Medical Code(s): I21.4 - Non-ST elevation (NSTEMI) myocardial infarction (2) Ischemic cardiomyopathy Status: Acute Category: Medical Code(s): I25.5 - Ischemic cardiomyopathy (3) Acute on chronic systolic (congestive) heart failure Status: Acute Category: Medical Code(s): I50.23 - Acute on chronic systolic (congestive) heart failure (4) Abdominal pain Status: Acute Qualifiers: Abdominal location: generalized Qualified Code(s): R10.84 - Generalized abdominal pain Category: Medical Code(s): R10.9 - Unspecified abdominal pain (5) Pleural effusion Status: Acute Category: Medical Code(s): J90 - Pleural effusion, not elsewhere classified (6) Ascites Status: Acute Qualifiers: Ascites type: other type Qualified Code(s): R18.8 - Other ascites Category: Medical Code(s): R18.8 - Other ascites (7) COPD (chronic obstructive pulmonary disease) Status: Chronic Qualifiers: COPD type: unspecified COPD Qualified Code(s): J44.9 - Chronic obstructive pulmonary disease, unspecified Category: Medical Code(s): J44.9 - Chronic obstructive pulmonary disease, unspecified (8) Hx of CABG Problem details: 6 vessel (1998) Status: Chronic Category: Surgical Code(s): Z95.1 - Presence of aortocoronary bypass graft (9) COVID-19 Status: Acute Category: Medical Code(s): U07.1 - COVID-19 (10) Abdominal aortic aneurysm (AAA) Problem details: 3.1 CM AUG 2021. Status: Chronic Qualifiers: Presence of rupture: without rupture Qualified Code(s): I71.4 - Abdominal aortic aneurysm, without rupture Category: Medical Code(s): I71.4 - Abdominal aortic aneurysm, without rupture (11) Coronary artery disease Status: Chronic Qualifiers: Coronary Disease-Associated Artery/Lesion type: unspecified vessel or lesion type [place] vs. transplanted heart: enterprise heart Associated angina: with other forms of angina Qualified Code(s): I25.118 - Atherosclerotic heart disease of enterprise coronary artery with other forms of angina pectoris Category: Medical Code(s): I25.10 - Atherosclerotic heart disease of [place] coronary artery without angina pectoris (12) Diabetes mellitus type 2 in obese Status: Chronic Category: Medical Code(s): E11.69 - Type 2 diabetes mellitus with other specified complication; E66.9 - Obesity, unspecified (13) Hyperlipidemia Status: Chronic Qualifiers: Hyperlipidemia type: mixed hyperlipidemia Qualified Code(s): E78.2 - Mixed hyperlipidemia Category: Medical Code(s): E78.5 - Hyperlipidemia, unspecified (14) Hypertension Status: Chronic Qualifiers: Hypertension type: primary hypertension Qualified Code(s): I10 - Essential (primary) hypertension Category: Medical Code(s): I10 - Essential (primary) hypertension - Assessment and plan all Dx Assessment and Plan for all problems:: #COVID-19 pneumonia: # Left pleural effusion: # COPD exacerbation: 2-year-old male greater than 18-[facility] smoking history, on Stiolto inhaler therapy, chronic hypoxic respiratory failure on 2 L oxygen therapy at
--- NOTE | 2022-02-22 10:15 | HMH.PNCARD ---
Subjective Date: 02/22/22 Time: 08:30 Principal diagnosis: non-stemi Interval history: This is a 72-year-old white gentleman who is admitted to the hospital with chest pain and abdominal pain. He did have an elevated troponin on admission consistent with a non-ST elevation myocardial infarction. The patient underwent left cardiac catheterization yesterday and had stenting of his 2 saphenous vein grafts. The patient will be on Brilinta and aspirin for dual antiplatelet therapy. The patient has severe LV dysfunction with a large regional wall motion abnormality which is chronic. His ejection fraction is 20%. He is status post AICD placement. This morning he denies any chest pain or pressure. He denies any shortness of breath or edema. He denies any fever, chills, nausea, vomiting, diarrhea, PND or orthopnea. Exam Vital signs and Labs for Last 24 Hours: Temp Pulse Resp BP Pulse Ox 97.8 F 85 20 112/60 94 L 02/22/22 08:00 02/22/22 08:00 02/22/22 08:00 02/22/22 08:00 02/22/22 08:00 Laboratory Results - last 24 hr 02/21/22 12:29: Activated Clotting Time 248 H* 02/22/22 06:40: WBC 7.6, RBC 3.27 L, Hgb 9.5 L, Hct 31.6 L, MCV 96.7 H, MCH 29.1, MCHC 30.1 L, RDW 19.7 H, Plt Count 248, MPV 9.2, Neut % (Auto) 64.7, Lymph % (Auto) 26.0, [place] % (Auto) 8.4, Eos % (Auto) 0.6, Baso % (Auto) 0.3, Neut # (Auto) 4.9, Lymph # (Auto) 2.0, [place] # (Auto) 0.6, Eos # (Auto) 0.0, Baso # (Auto) 0.0 02/22/22 06:40: Sodium 136, Potassium 3.2 L, Chloride 99, Carbon Dioxide 34 H, Anion Gap 6.2, BUN 20, Creatinine 0.90, Estimated Creat Clear 99, Estimated GFR 83, Est GFR ( Amer) 100, Glucose 104 H, Calcium 8.0 L I & O for Last 24 hours: Intake & Output 02/19/22 02/20/22 02/21/22 02/22/22 23:59 23:59 23:59 23:59 Intake Total 1050 / 1050 1350 / 1350 480 / 480 Output Total 400 / 700 2600 / 3550 2550 / 2550 Balance 650 / 350 -1250 / -2200 -0 / -2070 Weight 238 lb 1.588 oz 238 lb 1.588 oz 234 lb 8 oz 235 lb 9.6 oz Narrative: Telemetry strip is sinus rhythm with a rate of 85. - Constitutional no acute distress, obese - *Routine HEENT Exam Head: Present: normocephalic, atraumatic Eye: Present: EOMI, PERRL ENT: Present: mucous membranes moist - *Routine Neck Exam Present: supple, full ROM. Absent: JVD, carotid bruit, normal carotid upstroke, lymphadenopathy - *Routine Respiratory Exam Present: CTA bilaterally - *Routine Cardiovascular Exam Present: RRR, Normal S1, Normal S2. Absent: murmur - *Routine Abdominal Exam Present: soft, normoactive bowel sounds. Absent: tenderness, distended - *Routine Extremities Exam Present: full ROM, pulses intact, normal capillary refill. Absent: cyanosis, clubbing, edema - *Routine Skin Exam Present: intact, warm. Absent: erythema, rash - *Routine Neurological Exam Present: alert, oriented X3, CN II-XII intact. Absent: sensory deficit, motor deficit Progress Note: A&P (1) Non-STEMI (non-ST elevated myocardial infarction) Status: Acute (2) Ischemic cardiomyopathy Status: Acute (3) Acute on chronic systolic (congestive) heart failure Status: Acute (4) Abdominal pain Status: Acute (5) Pleural effusion Status: Acute (6) Ascites Status: Acute (7) COPD (chronic obstructive pulmonary disease) Status: Chronic (8) Hx of CABG Problem details: 6 vessel (1998) Status: Chronic (9) COVID-19 Status: Acute (10) Abdominal aortic aneurysm (AAA) Problem details: 3.1 CM AUG 2021. Status: Chronic (11) Coronary artery disease Status: Chronic (12) Diabetes mellitus type 2 in obese Status: Chronic (13) Hyperlipidemia Status: Chronic (14) Hypertension Status: Chronic Assessment and Plan for All Diagnoses:: Plan: 1. The patient was admitted to the hospital with abdominal pain and epigastric pain. He was found to have an acute exacerbation of his systolic congestive heart failure. He has known ischemic cardiomyopathy
--- NOTE | 2022-02-22 11:12 | HMH.DCSUM ---
General - General Admission date:: 02/18/22 Discharge date: 02/22/22 HPI HPI: 72-year-old male patient presented to the [facility] emergency department with complaints of abdominal discomfort. He reports he was having a bowel movement last week and heard a pop and started having abdominal pain. He reports having bowel movements since without any pain. He does report feeling a little bulge in that area and that the pain has been off and on since. He reports he does feel tenderness when he palpates the area. He denies any dysuria or hematuria, he also denies nausea/vomiting/diarrhea and has been having normal bowel movements since. He does report he is a 55-year 2 pack/day smoker and is on home oxygen at 2 L per nasal cannula. Chest x-ray revealed left lower lung opacity. Abdominal/pelvis CT revealed development of pelvic and abdominal ascites. Worsening small pleural effusions with partial loculation of left pleural effusion 72-year-old male patient sitting up in bed he denies any respiratory distress/chest pain during the night. Current oxygenation 97% on 2 L per nasal cannula. He denies any pain when umbilical area is palpated. There are some bilateral pleural effusions revealed with abdominal CT we will perform a chest CT and consult pulmonology. There is no abdominal tenderness with generalized palpation or around umbilicus. If pain develops we will consult general surgery. Hospital Course Hospital Course: Abnormal Lab Results 02/21/22 12:29: Activated Clotting Time 248 H* 02/22/22 06:40: RBC 3.27 L, Hgb 9.5 L, Hct 31.6 L, MCV 96.7 H, MCHC 30.1 L, RDW 19.7 H 02/22/22 06:40: Potassium 3.2 L, Carbon Dioxide 34 H, Glucose 104 H, Calcium 8.0 L cardiology consult:Assessment and Plan for All Diagnoses:: Plan: 1. The patient was admitted to the hospital with abdominal pain and epigastric pain. He was found to have an acute exacerbation of his systolic congestive heart failure. He has known ischemic cardiomyopathy. His ejection fraction is 20%. Status post AICD placement. The patient has been diuresed with IV Lasix and switch over to oral Lasix. He has tolerated this well and had a -2 L fluid balance overnight. 2. The patient did have a non-ST elevation myocardial infarction and underwent left cardiac catheterization yesterday. He had stenting to 2 of his saphenous vein grafts and tolerated the procedure well. He will be on Brilinta and aspirin for dual antiplatelet therapy. His Brilinta is already at the bedside. 3. Coronary artery disease is likely stable. 4. His blood pressure is well controlled. 5. His LDL goal is less than 55. His LDL is 38. On a statin. 6. AICD is in place. This was interrogated yesterday and showed no events. 7. The patient is hypokalemic today. We will give him KCl 40 mEq p.o. x1 dose. 8. No further recommendations at this time from a cardiac standpoint. The patient can be discharged home today from a cardiac standpoint and follow-up in cardiology clinic in 1 to 2 weeks with a BMP prior to his appointment. Thank you for the opportunity to help participate in the care of this patient. All recommendations and orders are per Dr. Muller. Assessment and plan all Dx pulmonary consult:Assessment and Plan for all problems:: #COVID-19 pneumonia: # Left pleural effusion: # COPD exacerbation: 2-year-old male greater than 38-ahkm-tinl smoking history, on Stiolto inhaler therapy, chronic hypoxic respiratory failure on 2 L oxygen therapy at home presented to the hospital complaining of abdominal pain and was found to have left-sided pleural effusion along with testing positive for COVID-19 pneumonia and pulmonary was called for further management. Patient said that he was tested positive for COVID-19 pneumonia on of last month that was managed as an outpatient basis. CT chest did not show any evidence of airspace disease of the lungs as opacities. Bilateral ple
--- NOTE | 2022-02-22 12:27 | HMH.PHACLD ---
Chun Guillory has received discharge medication counseling on the following medications: PATIENT IS CURRENTLY TAKING CARVEDILOL 12.5 MG BID, LISINOPRIL 40 MG DAILY, ASPIRIN 81 MG DAILY, AND ATORVASTATIN 40 MG HS. ADDING BRILINTA 90 MG BID.
--- NOTE | 2022-02-25 15:33 | CARE MANAGER ---
Contacted patient regarding follow up from patient's hospital stay. He states that he hasn't picked up his medications yet as [facility] He states he is taking the Brilinta and inhaler. He states he has some soreness but is ok. Deneis any questions or concerns at this time. CONOR Lee
== END 2022-02-22 12:40 | disposition home or self-care (01) | DRG 246 ==
LOC: ER 17:56 → 2ND 02-19 03:05
PROVIDERS: Internal Medicine; Nurse Practitioner Family; Admitting Provider Emergency Medicine; Emergency Provider Emergency Medicine; PCP Physician Assistant; Visit Provider Emergency Medicine
PROC: 027135Z Dilation of Coronary Artery, Two Arteries with Two Drug-eluting Intraluminal Devices, Percutaneous Approach (ICD-10-PCS; principal; 2022-02-21 08:00)
DX: I11.0 Hypertensive heart disease with heart failure (principal); I21.4 Non-ST elevation (NSTEMI) myocardial infarction; J12.82 Pneumonia due to coronavirus disease 2019; U07.1 COVID-19; I50.23 Acute on chronic systolic (congestive) heart failure; R18.8 Other ascites; J96.11 Chronic respiratory failure with hypoxia; J44.1 Chronic obstructive pulmonary disease with (acute) exacerbation; I25.810 Atherosclerosis of coronary artery bypass graft(s) without angina pectoris; Z20.822 Contact with and (suspected) exposure to COVID-19; I71.4 Abdominal aortic aneurysm, without rupture; M19.90 Unspecified osteoarthritis, unspecified site; F17.290 Nicotine dependence, other tobacco product, uncomplicated; Z95.1 Presence of aortocoronary bypass graft; Z99.81 Dependence on supplemental oxygen; I25.5 Ischemic cardiomyopathy; E66.9 Obesity, unspecified; Z68.31 Body mass index [BMI] 31.0-31.9, adult; I25.10 Atherosclerotic heart disease of native coronary artery without angina pectoris; Z95.810 Presence of automatic (implantable) cardiac defibrillator; E87.6 Hypokalemia
CPT/HCPCS: 36415; 71045; 71250; 74177; 80048; 80053; 80061; 80076; 80202; 83690; 83880; 84484; 85007; 85014; 85018; 85025; 85048; 85049; 85347; 85610; 85730; 92937; 92938; 93005; 93306; 93459; 94640; 96365; 99152; 99153; 99285; C1725; C1760; C1769; C1875; C1876; C1894; C9604; C9605; C9803; J1644; J2543; Q9967; U0003; U0005

== ENCOUNTER 2022-03-05 14:09 | Outpatient (RCR) | payer MEDICARE, OTHER, SELFPAY | END 2022-04-08 15:00 | disposition home or self-care (01) | LOC: PT 14:09 | PROVIDERS: Visit Provider Internal Medicine | DX: I25.10 Atherosclerotic heart disease of native coronary artery without angina pectoris (principal); Z95.5 Presence of coronary angioplasty implant and graft ==

== ENCOUNTER → 2022-03-07 08:08 | Outpatient (CLI) | payer MEDICARE, OTHER, SELFPAY ==
[2022-03-07 08:50] VITALS: PULSE 60
[2022-03-07 12:58] LABS: Basophils % 0.5 % (0.1-2.0); Eosinophils # 0.1 K/mm3 (0.0-0.4); Eosinophils % 2.5 % (0.1-12.0); Hemoglobin 9.2 g/dL (14.1-18.0); Lymphocytes # 1.3 K/mm3 (0.7-4.5); Lymphocytes % 23.4 % (10-50); Mean Corpuscular HGB Conc 30.6 g/dL (31.8-35.4); Mean Corpuscular Hemoglobin 28.7 pg (27.0-31.2); Mean Platelet Volume 8.2 fl (7.4-10.4); Monocytes # 0.4 K/mm3 (0.1-1.0); Monocytes % 6.8 % (1.7-9.3); Neutrophils # 3.7 K/mm3 (1.8-7.8); Neutrophils % 66.7 % (37.0-80.0); Platelet Count 234 K/mm3 (142-424); Red Blood Count 3.19 M/mm3 (4.60-6.20); Red Cell Distribution Width 19.9 % (11.5-17.5); White Blood Count 5.5 K/mm3 (4.8-10.8)
[2022-03-07 13:15] LABS: Chloride 99 mmol/L (98-107); Sodium 137 mmol/L (136-145)
[2022-03-07 13:16] LABS: Potassium 3.6 mmoL/L (3.5-5.1)
[2022-03-07 13:18] LABS: Blood Urea Nitrogen 16 mg/dl (9-20); Estimated Glomerular Filt Rate 95 ml/min (>60); GFR (African American) 115 ML/MIN (>60)
[2022-03-07 13:19] LABS: Anion Gap 7.6 mEq/L (5-15); Calcium 9.1 mg/dl (8.4-10.2); Carbon Dioxide 34 mmol/L (22.0-30.0); Glucose 80 mg/dl (74-100)
== END ==
PROVIDERS: Nurse Practitioner; PCP Physician Assistant; Visit Provider Internal Medicine Pulmonary Disease
DX: Z95.1 Presence of aortocoronary bypass graft; J44.1 Chronic obstructive pulmonary disease with (acute) exacerbation
CPT/HCPCS: 36415; 80048; 85025; 94060; 94618; 94640; 94727; 94729

== ENCOUNTER 2022-04-03 09:17 | Inpatient (IN) | payer MEDICARE, OTHER, SELFPAY ==
[2022-04-03] VITALS (36 sets, daily range): BP systolic 85–120; BP diastolic 35–73; PULSE 70–94; RESP 16–24; TEMP 36.3–36.8; O2SAT 90–100; BMI 29.8; BMI 32.0
--- NOTE | 2022-04-03 09:26 | PC.NURSE ---
PAPA MCKEON at BS; Dana at BS
--- NOTE | 2022-04-03 09:45 | XR_ITS ---
FINAL REPORT CLINICAL HISTORY: cough COMPARISON: February 18, 2022 FINDINGS: There is left subclavian ICD. Cardiomegaly is noted. Postoperative changes are seen from median sternotomy. No acute pulmonary abnormality is identified. There is no pneumothorax. The bony thorax is intact. IMPRESSION: No acute cardiopulmonary process. Reviewed, Interpreted and Dictated by Patrice Singh III, MD Transcribed by Reji Huynh Authenticated by Patrice Singh III, MD on 04/03/2022 11:10:39 AM [facility]
[2022-04-03 09:55] LABS: Basophils # 0.1 K/mm3 (0-0.2); Basophils % 0.7 % (0.1-2.0); Eosinophils # 0.1 K/mm3 (0.0-0.4); Eosinophils % 0.7 % (0.1-12.0); Lymphocytes # 1.2 K/mm3 (0.7-4.5); Lymphocytes % 16.9 % (10-50); Mean Corpuscular HGB Conc 30.4 g/dL (31.8-35.4); Mean Corpuscular Hemoglobin 28.2 pg (27.0-31.2); Mean Corpuscular Volume 92.9 fl (80-94); Mean Platelet Volume 7.8 fl (7.4-10.4); Monocytes # 0.8 K/mm3 (0.1-1.0); Monocytes % 10.3 % (1.7-9.3); Neutrophils # 5.2 K/mm3 (1.8-7.8); Neutrophils % 71.4 % (37.0-80.0); Platelet Count 293 K/mm3 (142-424); Red Blood Count 2.18 M/mm3 (4.60-6.20); Red Cell Distribution Width 21.1 % (11.5-17.5); White Blood Count 7.3 K/mm3 (4.8-10.8)
--- NOTE | 2022-04-03 09:56 | HMH.EDGENADL ---
ED Disposition Clinical Impression: Ascites, Ischemic cardiomyopathy, Systolic congestive heart failure with reduced left ventricular function, NYHA class 1, Acute on chronic anemia, Hyperkalemia Disposition: Admitted as Observation Condition on Discharge: Fair Referrals: Thalia Campuzano PA [Primary Care Provider] - - Critical Care Critical Care Time: No Attestation: On 04/03/22, the high probability of a clinically significant, sudden or life threatening deterioration of the following system(s) required my full and direct attention, intervention and personal management. The time I documented below is in addition to time spent performing reported procedures but includes the following listed in this critical care notation. Medical Decision Making - Medical Records Medical records reviewed: Yes: I reviewed the patient's medical records. - Carl Inquiry Pt receiving controlled substance: No Vital Signs: 04/03/22 09:25 04/03/22 09:33 04/03/22 10:02 Temperature 98.2 F Temperature Source Oral Pulse Rate 94 H 84 82 Pulse Rate [Left Radial] 93 H Respiratory Rate 24 Blood Pressure 96/53 L 107/57 L 100/56 L Blood Pressure [Right Arm] 96/53 L Blood Pressure Mean 58 73 70 Blood Pressure Mean [Right Arm] 67 02 Sat by Pulse Oximetry 98 100 99 Oxygen Delivery Method Nasal Cannula Oxygen Flow Rate (LPM) 2 04/03/22 10:03 04/03/22 10:14 04/03/22 10:23 Temperature Temperature Source Pulse Rate 70 88 86 Pulse Rate [Left Radial] Respiratory Rate Blood Pressure 101/56 L 105/50 L 100/54 L Blood Pressure [Right Arm] Blood Pressure Mean 68 68 71 Blood Pressure Mean [Right Arm] 02 Sat by Pulse Oximetry 98 96 100 Oxygen Delivery Method Oxygen Flow Rate (LPM) 04/03/22 10:33 04/03/22 10:43 04/03/22 10:53 Temperature Temperature Source Pulse Rate 87 77 87 Pulse Rate [Left Radial] Respiratory Rate Blood Pressure 111/64 120/73 113/60 Blood Pressure [Right Arm] Blood Pressure Mean 75 82 76 Blood Pressure Mean [Right Arm] 02 Sat by Pulse Oximetry 100 100 98 Oxygen Delivery Method Oxygen Flow Rate (LPM) 04/03/22 11:04 Temperature Temperature Source Pulse Rate 71 Pulse Rate [Left Radial] Respiratory Rate Blood Pressure 109/61 L Blood Pressure [Right Arm] Blood Pressure Mean 72 Blood Pressure Mean [Right Arm] 02 Sat by Pulse Oximetry 95 Oxygen Delivery Method Oxygen Flow Rate (LPM) - Lab Data Lab Results 04/03/22 08:30: WBC 7.3, RBC 2.18 L, Hgb 6.2 L*, Hct 20.3 L*, MCV 92.9, MCH 28.2, MCHC 30.4 L, RDW 21.1 H, Plt Count 293, MPV 7.8, Neut % (Auto) 71.4, Lymph % (Auto) 16.9, [place] % (Auto) 10.3 H, Eos % (Auto) 0.7, Baso % (Auto) 0.7, Neut # (Auto) 5.2, Lymph # (Auto) 1.2, [place] # (Auto) 0.8, Eos # (Auto) 0.1, Baso # (Auto) 0.1 04/03/22 08:30: Sodium 133 L, Potassium 5.8 H, Chloride 99, Carbon Dioxide 24, Anion Gap 15.8 H, BUN 48 H, Creatinine 1.60 H, Estimated Creat Clear 58, Estimated GFR 43 L, Est GFR ( Amer) 52 L, Glucose 75, Calcium 9.6, Total Bilirubin 1.8 H, AST 271 H, ALT 172 H, Alkaline Phosphatase 84, Troponin I 0.25 H, NT-Pro-B Natriuret Pep 2730 H, Total Protein 7.0, Albumin 4.0, Globulin 3.0, Albumin/Globulin Ratio 1.3 04/03/22 10:02: SARS-CoV-2 (PCR) Not detected, Influenza A Untype (PCR) Not detected, Influenza Type B (PCR) Not detected 04/03/22 10:22: Blood Type O Positive, Antibody Screen Negative Result diagrams: 04/03/22 08:30 04/03/22 08:30 Orders (Tests/Meds): ED MEDICATIONS Generic Name Dose Route Start Last Admin Trade Name Freq PRN Reason Stop Dose Admin Sodium Chloride 10 ml 04/03/22 10:23 Sodium Chloride 0.9% 10ml Flush Syringe IV 05/03/22 10:22 NEEDED PRN Maintain IV Site Discontinued Medications Generic Name Dose Route Start Last Admin Trade Name Freq PRN Reason Stop Dose Admin Dextrose 50 ml 04/03/22 10:44 04/03/22 11:15 Dextrose 50% 50ml Syringe (Crash Cart)
--- NOTE | 2022-04-03 09:56 | PC.NURSE ---
Yara B, RN at checking for pedal pulses bilaterally
[2022-04-03 09:57] LABS: Chloride 99 mmol/L (98-107); Potassium 5.8 mmoL/L (3.5-5.1); Sodium 133 mmol/L (136-145)
[2022-04-03 09:59] LABS: Alanine Aminotransferase 172 U/L (12-78); Alkaline Phosphatase 84 U/L (38-126); Anion Gap 15.8 mEq/L (5-15); Aspartate Amino Transferase 271 U/L (17-59); Bilirubin,Total 1.8 mg/dl (0.2-1.3); Blood Urea Nitrogen 48 mg/dl (9-20); Carbon Dioxide 24 mmol/L (22.0-30.0); Creatinine Clearance Estimated 58 mL/min (50-200); Estimated Glomerular Filt Rate 43 ml/min (>60); GFR (African American) 52 ML/MIN (>60)
[2022-04-03 10:00] LABS: Albumin/Globulin Ratio 1.3 (1.1-1.8); Calcium 9.6 mg/dl (8.4-10.2); Glucose 75 mg/dl (74-100); Hemoglobin 6.2 g/dL (14.1-18.0)
[2022-04-03 10:01] LABS: Hematocrit 20.3 % (42.0-52.0)
--- NOTE | 2022-04-03 10:01 | PC.NURSE ---
bilateral pedal pulse present, MD aware
--- NOTE | 2022-04-03 10:04 | PC.NURSE ---
Covid swab sent to lab
[2022-04-03 10:09] LABS: NT Pro Brain Natriuretic Pep. 2730 pg/mL (0-125)
[2022-04-03 10:11] LABS: Coronavirus 19, PCR Not Detected (NotDetected); Influenza A, PCR Not Detected (NotDetected); Influenza B, PCR Not Detected (NotDetected)
[2022-04-03 10:25] LABS: Troponin I 0.25 ng/ml (0.00-0.034)
--- NOTE | 2022-04-03 10:50 | ECG_ITS ---
APPROVED REPORT Exam: Resting ECG HR:90 bpm ECG Measurements Heart Rate 90 AXES DC 134 P -83 QRSd 123 QRS 74 QT 353 T 179 QTc 400 Conclusion JUNCTIONAL RHYTHM POSSIBLE ANTERIOR MYOCARDIAL INFARCTION , PROBABLY OLD [30 ms Q WAVE IN V3/V4, OR R < 0.2 mV IN V4] POSSIBLE INFERIOR MYOCARDIAL INFARCTION , PROBABLY OLD [30 ms Q WAVE IN II/aVF] ABNORMAL RHYTHM ECG UNCONFIRMED REPORT Electronically signed by : Khanh Scott MD 04/04/2022 21:23:59
--- NOTE | 2022-04-03 11:09 | CT_ITS ---
FINAL REPORT TECHNIQUE: Axial CT images were performed from the lung apices through the upper abdomen. Coronal reformats were submitted. This study was performed with techniques to keep radiation doses as low as reasonably achievable (ALARA). Individualized dose reduction techniques using automated exposure control or adjustment of mA and/or kV according to the patient's size were employed. CLINICAL HISTORY: swelling COMPARISON: 02/19/2022 FINDINGS: There is no axillary adenopathy. There is no hilar or mediastinal mass or adenopathy. The patient is status post median sternotomy. Left subclavian pacer is identified. There is cardiomegaly with left ventricular enlargement and sub endocardial fat and calcification consistent with sequela of prior myocardial infarction. There is dilation of the pulmonary outflow tract. There is diffuse bronchial wall thickening consistent with bronchitis, worse since previous. Improved pleural effusions are identified. IMPRESSION: Findings consistent with sequela of prior myocardial infarction. Worsening bronchitis. Improved pleural effusions. Reviewed, Interpreted and Dictated by Patrice Singh III, MD Transcribed by [facility]
--- NOTE | 2022-04-03 11:09 | CT_ITS ---
FINAL REPORT TECHNIQUE: Axial images through the abdomen and pelvis were performed without contrast. This study was performed with techniques to keep radiation doses as low as reasonably achievable, (ALARA). Individualized dose reduction techniques using automated exposure control or adjustment of mA and/or kV according to the patient's size were employed. CLINICAL HISTORY: swelling COMPARISON: 02/18/2022 FINDINGS: ABDOMEN: The lung bases are clear. The heart size is normal. Limited images of the liver are unremarkable. The gallbladder is partially collapsed with wall thickening is a nonspecific finding. Note is made of mild anasarca. The spleen is normal. Again identified is a small to moderate amount of ascites. There is left adrenal enlargement, likely an adenoma. Moderate vascular calcification is identified. The aorta is normal in caliber. There is no significant adenopathy. There is no nephrolithiasis. There is no hydronephrosis. PELVIS: The appendix is not identified. There is mild urinary bladder wall thickening There is no significant adenopathy. IMPRESSION: A small to moderate amount of ascites. Partially collapsed gallbladder with wall thickening, nonspecific. Anasarca. Mild urinary bladder wall thickening. Reviewed, Interpreted and Dictated by Patrice Singh III, MD Transcribed by Daphne Wilcox [facility]
--- NOTE | 2022-04-03 11:09 | PC.NURSE ---
Calling Dr. Aguirre for Dr. Love
--- NOTE | 2022-04-03 11:20 | PC.NURSE ---
Dr. Miller speaking with Dr. Aguirre
--- NOTE | 2022-04-03 11:28 | PC.NURSE ---
[facility] for [facility]
--- NOTE | 2022-04-03 11:29 | PC.NURSE ---
[facility] VM for [facility]
--- NOTE | 2022-04-03 11:38 | PC.NURSE ---
pt to CT by stretcher with solids control technician
--- NOTE | 2022-04-03 11:46 | PC.NURSE ---
Spoke with Tani with [facility] and she reports they have no beds at this time. She reports the refusal form does not have to be filled out and faxed in due to the bed status. I called and spoke with Irina in Care management and reported that they have no beds and she states she would work on his bed assignment. also notified
--- NOTE | 2022-04-03 12:02 | HMH.CNCARD ---
History of Present Illness Consult date: 04/03/22 Requesting physician: Louis Aguirre Chief complaint: SOA, edema, anemia, CAD/CABG with recent STEPHEN, 02/2022. Additional Medical History:: 1. Coronary artery disease A. History of 6 vessel bypass 1998, [place], [place] at [facility], 02/21/2022 for NSTEMI ANGIOGRAPHIC RESULTS The left main artery Normal The left anterior descending artery Has proximal and mid vessel 50 and 70% stenosis then occluded at mid vessel. The circumflex artery Probably dominant vessel and occluded at mid vessel The right coronary artery Probably nondominant and proximally occluded The ERICKSON ventriculogram reveals Dilated ventricle anterior apical akinesis ejection fraction estimated 20% The left ventricular end-diastolic pressure 10 mmHg FINE to LAD widely patent Saphenous vein graft to circumflex artery has a proximal long eccentric 90% stenosis followed by mid vessel 40 to 50% stenoses Saphenous vein graft to right coronary artery has a proximal valve which gives a 50% angiographic stenosis. Distally there is a concentric 80 to 90% stenosis. The anastomosis has 70% disease in both the anastomosis and rincon right coronary artery. The right coronary artery itself appears to be a small to moderate amount of myocardium IMPRESSION Coronary artery disease as described above Successful stenting of 2 saphenous vein grafts as described above Severe left ventricular dysfunction with large regional wall motion abnormality which is chronic Normal left ventricular end-diastolic pressure PLAN 1. Dual antiplatelet therapy 2. Standard therapy for systolic heart failure 3. Standard therapy for coronary artery disease/ischemic disease 4. LDL less than 55 to be achieved with high intensity statin 5. Cardiac rehabilitation once over COVID 6. Avoidance of tobacco products Electronically signed by : Сергей Muller MD 02/21/2022 12:46:10 2. Ischemic cardiomyopathy A. Ejection fraction approximately 20% B. Dual-chamber AICD implantation approximately 2007 with battery change in 2016 with a [place] generator model CD [id number], Dr. Krystle Hodges. Echo, 02/2022, 1. Biatrial enlargement, dilated left ventricle, severe reduced left ventricular systolic function, visually estimated ejection fraction 20% with segmental wall motion abnormality described above, diastolic parameters are inconclusive. 2. Moderately enlarged right ventricle with reduced contractility. 3. Moderate mitral and tricuspid regurgitation, calculated right ventricular systolic pressure 48 mmHg. 4. No significant pericardial effusion. 5. Inferior vena cava is dilated without significant inspiratory collapse. Electronically signed by : Randal Mendieta MD 02/20/2022 20:08:21 3. Tobacco use, continued, 1 to 2 packs/day for greater than 40 years 4. Diabetes mellitus, diagnosed approximately 2018 5. History of bilateral knee replacements 6. Hypertension 7. Hyperlipidemia 8. Obstructive sleep apnea, CPAP use 9. AAA-3.1 cm (AUG 2021) A. CT of Abd, 02/2022, 3.5 cm History of present illness: 72-year-old male presented to the emergency department with leg swelling shortness of breath. Patient is a longstanding history of coronary artery disease and ischemic cardiomyopathy. Patient was recently admitted had a cardiac catheterization with stenting. At that time was noted to have severely poor ejection fraction. Patient is that he does get swelling from time to time, however there is been more persistent. Located on his legs bilaterally. Patient states that his shortness of breath is mainly with exertion. Has had a mild cough. Nonproductive in nature. Denies any associated chest pain or palpitations. No abdominal pain or vomiting or diarrhea. No headache or change in vision. No focal weakness. Patient does have findings consistent with acute anemia. He is no active bleeding at th
--- NOTE | 2022-04-03 12:20 | PC.NURSE ---
ENA Cowan with Cardiology at [facility]
--- NOTE | 2022-04-03 13:58 | HMH.PHAVTE ---
[facility] Pharmacy VTE Monitoring - Patient Demographics Admission date: 04/03/22 Report Date: 04/03/22 Time: 13:58 Allergies/Adverse Reactions: Patient Allergies No Known Allergies Allergy (Verified 03/20/22 10:38) Height: 1.83 m Weight: 107.19 kg Patient Problems: Current Active Problems Ascites (Acute) Ischemic cardiomyopathy (Acute) Acute on chronic anemia (Acute) Hyperkalemia (Acute) Acute kidney injury (Acute) Elevated troponin (Acute) COPD (chronic obstructive pulmonary disease) (Chronic) Abdominal aortic aneurysm (AAA) (Chronic) Hx of CABG (Chronic) Ischemic cardiomyopathy with implantable cardioverter-defibrillator (ICD) (Chronic) Systolic congestive heart failure with reduced left ventricular function, NYHA class 1 (Chronic) Hypertension (Chronic) Hyperlipidemia (Chronic) Diabetes mellitus type 2 in obese (Chronic) Cardiac murmur, unspecified (Acute) Acute on chronic systolic congestive heart failure, NYHA class 4 (Acute) - VTE Risk Labs: VTE Related Lab Results Hgb 6.2 g/dL (14.1-18.0) L* 04/03/22 08:30 Hct 20.3 % (42.0-52.0) L* 04/03/22 08:30 Plt Count 293 K/mm3 (142-424) 04/03/22 08:30 BUN 48 mg/dl (9-20) H 04/03/22 08:30 Creatinine 1.60 mg/dl (0.66-1.25) H 04/03/22 08:30 Estimated Creat Clear 58 mL/min (50-200) 04/03/22 08:30 Was VTE Risk Assessment Performed: Yes VTE Score: 5 VTE Risk Level: Low Risk Clinical Trial Participant: No - Prophylaxis VTE Prophylaxis Ordered?: Yes Types of VTE Prophylaxis: TEDS Knee High, Pharmacological Location of Applied Device: Bilateral Lower Extremeties Pharmacologic Type: Enoxaparin
[2022-04-03 13:59] LABS: Troponin I 0.23 ng/ml (0.00-0.034)
[2022-04-03 16:45] LABS: POC Glucose,Bedside 86 (70-110)
[2022-04-03 17:17] LABS: Troponin I 0.23 ng/ml (0.00-0.034)
[2022-04-04] VITALS (29 sets, daily range): BP systolic 78–150; BP diastolic 44–68; PULSE 62–90; RESP 16–20; TEMP 36.3–36.8; O2SAT 93–100; BMI 32.0; BMI 31.9
[2022-04-04 00:31] LABS: Hematocrit 21.9 % (42.0-52.0)
[2022-04-04 00:33] LABS: Hemoglobin 6.8 g/dL (14.1-18.0)
[2022-04-04 01:15] LABS: Hematocrit 22.1 % (42.0-52.0)
[2022-04-04 01:22] LABS: Hemoglobin 6.9 g/dL (14.1-18.0)
--- NOTE | 2022-04-04 03:29 | PC.NURSE ---
Pt asleep at this time. Large amount of urine found on floor from pt attempting to use urinal. Bed alarm turned on for safety.
[2022-04-04 06:14] LABS: Basophils % 0.4 % (0.1-2.0); Hematocrit 22.6 % (42.0-52.0); Lymphocytes # 1.3 K/mm3 (0.7-4.5); Lymphocytes % 28.1 % (10-50); Mean Corpuscular HGB Conc 30.5 g/dL (31.8-35.4); Mean Corpuscular Hemoglobin 28.2 pg (27.0-31.2); Mean Corpuscular Volume 92.6 fl (80-94); Mean Platelet Volume 9.2 fl (7.4-10.4); Monocytes # 0.4 K/mm3 (0.1-1.0); Neutrophils # 2.9 K/mm3 (1.8-7.8); Neutrophils % 61.5 % (37.0-80.0); Platelet Count 228 K/mm3 (142-424); Red Blood Count 2.44 M/mm3 (4.60-6.20); Red Cell Distribution Width 19.9 % (11.5-17.5); White Blood Count 4.7 K/mm3 (4.8-10.8)
[2022-04-04 06:19] LABS: Hemoglobin 6.9 g/dL (14.1-18.0)
[2022-04-04 06:21] LABS: Chloride 103 mmol/L (98-107); Potassium 4.5 mmoL/L (3.5-5.1); Sodium 135 mmol/L (136-145)
[2022-04-04 06:24] LABS: Anion Gap 8.5 mEq/L (5-15); Carbon Dioxide 28 mmol/L (22.0-30.0)
[2022-04-04 06:25] LABS: Calcium 9.5 mg/dl (8.4-10.2); Glucose 52 mg/dl (74-100)
[2022-04-04 06:28] LABS: Blood Urea Nitrogen 50 mg/dl (9-20)
[2022-04-04 06:29] LABS: Creatinine Clearance Estimated 71 mL/min (50-200); Estimated Glomerular Filt Rate 50 ml/min (>60); GFR (African American) 60 ML/MIN (>60)
--- NOTE | 2022-04-04 06:58 | PC.NURSE ---
Pt a + o x4 but does get confused at times. Pt tolerating 2 L nc well with sats >90%. No complaints voiced to staff. Call light within reach.
--- NOTE | 2022-04-04 07:40 | HMH.PHAINT ---
MEDICATION RECONCILIATION COMPLETED ON PATIENT USING DISCHARGE SUMMARY FROM PREVIOUS VISIT AND LIST FROM PULMONOLOGY OFFICE. -SAV BAEZA, OSCARD
--- NOTE | 2022-04-04 08:12 | CA_ITS ---
APPROVED REPORT EXAM: Comprehensive 2D, Doppler, and color-flow Echocardiogram Optimization Specialist: Erica Vallecillo RT(R) Ht: 6 ft 0 in Wt: 236lbs BSA: 2.29 BP: 109/61 mmHg Indications: COPD, murmur, smoker, edema, HTN, DM, CM EF 20% 02/18/22, AICD, CAD, anemia, hx CABG, AAA 2D Dimensions LVEF (Oh's) 28.00 % M: 52 - 72 LV Volume 236.70 mL M: 62 - 150 LV Volume Index 103.81 mL/m2 M: 34 - 74 M-Mode Dimensions RVDd 2.75 cm (0.9-2.6) LVDd 8.16 cm (3.5-5.7) LVDs 7.48 cm (3.5-5.7) IVSd 0.80 cm (0.6-1.1) PWd 1.56 cm (0.6-1.1) EF (Teich) 17.70% FS 8.30% EDV (Teich) 360.20 mL ESV (Teich) 296.50 mL Conclusion 1. Limited echocardiogram was performed to evaluate left ventricular systolic function. No color Doppler performed. 2. The left ventricle is mildly dilated, severe reduced left ventricular systolic function, visually estimated ejection fraction 20%, there is marked hypokinesis involving the mid to distal septum, anterior, anterior apical and anterolateral wall. 3. Right ventricle is normal size and contractility, there is an AICD lead seen in right ventricle. 4. No significant pericardial effusion noted. 5. Inferior vena cava is dilated without significant inspiratory collapse. Electronically signed by : Randal Mendieta MD 04/04/2022 09:26:29
--- NOTE | 2022-04-04 09:20 | HMH.HP ---
*Admission Date: 04/03/22 *Chief complaint: Congestive breath *History of present illness: 72-year-old male patient presenting to the emergency department with shortness of breath and increasing bilateral lower extremity edema. He reports he has been increasingly short of breath with increased bilateral lower extremity swelling, denies chest pain but does admit a STEMI with 2 stents placed at [facility] 02/21/2022. He is also has a known ejection fraction of 20 to 25% with ischemic cardiomyopathy he denies fever/chills/body aches or nausea/vomiting/diarrhea. He admits tobacco 1 pack/day for 60 years, alcohol fifth of bourbon on the weekend for years , but he reports alcohol cessation last year. Hemoglobin/hematocrit 6.2/20.3 he did receive 2 units packed red blood cells yesterday this morning his hemoglobin was 6.9 and we have reordered 2 units packed red blood cells In the ED BUN 48, creatinine 1.6, this morning after blood and IV fluids BUN 50 creatinine 1.4 Potassium was 5.8 in the ER and he received calcium/insulin/D50 IV, this morning potassium 4.5 BNP was 2730 Chest x-ray normal General surgery consulted and cardiology following [facility] History I have reviewed the patient's past medical history: Yes Medical History: Reports:: Congestive Heart Failure, Congenital Heart Disease, Coronary Artery Disease, Diabetes Mellitus Type 2, Hyperlipidemia, Hypertension, Internal Pacemaker, Myocardial Infarction Denies:: Cancer, Diabetes Mellitus Type 1, MRSA *Have you ever received a pneumonia vaccine?: Yes *Have you received a flu vaccine this season?: Yes Other Medical History: Reports: Anemia, Arthritis Other Surgeries: Yes: No Previous Surgery, Cardiac Catheterization, Colonoscopy, Coronary Stent, Open Heart Surgery, Pacemaker Amputation: No Fractures: No - *Social History Last grade of school completed: 9th or 10th Smoking Status: Current some day smoker Tobacco Type: cigarettes # Packs/Day (cigarettes): 1 Alcohol Intake: former *Occupational Status:: disabled Housing: house Household Members: children *Travel in the last 8 weeks: Inside the [place] Family Hx:: Diabetes, Heart Attack, Hyperlipidemia, Hypertension Review of Systems - Review of Systems Review of systems:: pertinent systems reviewed and negative unless documented below - Constitutional Reports fatigue, Denies body ache(s) - Eyes Denies blurry vision, Denies double vision - ENT Reports abnormal hearing, Denies headache(s), Denies nasal congestion, Denies throat swelling - *Cardiovascular Reports shortness of breath, Reports shortness of breath with activity, Denies chest pain, Denies chest pain with activity - *Respiratory Reports cough, Reports shortness of breath, Reports shortness of breath with activity, Denies chest congestion - *Gastrointestinal Denies abdominal pain, Denies difficulty swallowing - *Musculoskeletal Reports abnormal walking, Denies joint swelling - Integumentary/Breasts Denies bleeding lesions, Denies change in skin color - *Neurologic Denies abnormal speech, Denies seizure-like activity, Denies headache(s) - Psychiatric Denies hearing things others do not hear, Denies confusion - Endocrine Denies cold intolerance, Denies heat intolerance - Hematologic/Lymphatic Reports easy bruising, Denies easy bleeding - Allergic/Immunologic Denies itchy eyes, Denies throat swelling Meds Home Medications Medication Instructions Recorded Confirmed Type Albuterol Sulfate [Albuterol 2 puffs IH QIDP PRN 08/26/21 04/03/22 History Sulfate Hfa] Buspirone HCl [Buspar 10mg 20 mg PO TID 08/26/21 04/03/22 History tablet] Duloxetine HCl 120 mg PO DAILY 08/26/21 04/03/22 History Empagliflozin [Jardiance] 10 mg PO DAILY 08/26/21 04/03/22 History Famotidine [Heartburn Prevention] 20 mg PO HS 08/26/21 04/03/22 History Gabapentin 800 mg PO HS 08/26/21 04/03/22 History Metformin HCl [Metformin 1000mg 1,
[2022-04-04 09:44] LABS: Ammonia 27 umol/L (9-30)
--- NOTE | 2022-04-04 10:09 | HMH.GSCON ---
*Admission Date: 04/03/22 *Reason for consult:: GI Bleed *History of present illness: Patient is a 72-year-old male smoker from [facility] with history of coronary artery disease and congestive heart failure (ejection fraction 20%) and ischemic cardiomyopathy. He had prior AICD placement. On home oxygen. He has prior history of [place] in 1998 and subsequent CABGx6. He was admitted 02/18/22 to this facility with abdominal pain and was noted to have a non-STEMI. He underwent left heart catheterization with STEPHEN placement on 02/21/2022 on dual antiplatelet therapy. He presented to the emergency department yesterday morning (04/03/22) with symptoms of leg swelling and shortness of air. Evaluation in the emergency department revealed hemoglobin of 6.2. Recent hemoglobin was in the mid 9 range. Hemoglobin in August 2021 of 13. He was admitted for inpatient management. Patient was transfused 2 units packed red blood cells for hemoglobin of 6.2 with posttransfusion hemoglobin of 6.8. BUN is 50 with previous normal BUN. Surgical consultation was ordered this morning a bit after 8 AM. Patient has had some mild mid abdominal discomfort. Denies severe pain. Denies prior history of known ulcers. He has had some intermittent self-limited black stools. Review of Systems - Review of Systems Review of systems:: pertinent systems reviewed and negative unless documented below - *Neurologic Denies headache(s) [facility] History I have reviewed the patient's past medical history: Yes Medical History: Reports:: Congestive Heart Failure, Congenital Heart Disease, Coronary Artery Disease, Diabetes Mellitus Type 2, Hyperlipidemia, Hypertension, Internal Pacemaker, Myocardial Infarction Denies:: Cancer, Diabetes Mellitus Type 1, MRSA *Have you ever received a pneumonia vaccine?: Yes *Have you received a flu vaccine this season?: Yes Other Medical History: Reports: Anemia, Arthritis Other Surgeries: Yes: No Previous Surgery, Cardiac Catheterization, Colonoscopy, Coronary Stent, Open Heart Surgery, Pacemaker Amputation: No Fractures: No - *Social History Last grade of school completed: 9th or 10th Smoking Status: Current some day smoker Tobacco Type: cigarettes # Packs/Day (cigarettes): 1 Alcohol Intake: former *Occupational Status:: disabled Housing: house Household Members: children *Travel in the last 8 weeks: Inside the [place] Family Hx:: Diabetes, Heart Attack, Hyperlipidemia, Hypertension Meds Home Medications Medication Instructions Recorded Confirmed Type Albuterol Sulfate [Albuterol 2 puffs IH QIDP PRN 08/26/21 04/03/22 History Sulfate Hfa] Buspirone HCl [Buspar 10mg 20 mg PO TID 08/26/21 04/03/22 History tablet] Duloxetine HCl 120 mg PO DAILY 08/26/21 04/03/22 History Empagliflozin [Jardiance] 10 mg PO DAILY 08/26/21 04/03/22 History Famotidine [Heartburn Prevention] 20 mg PO HS 08/26/21 04/03/22 History Gabapentin 800 mg PO HS 08/26/21 04/03/22 History Metformin HCl [Metformin 1000mg 1,000 mg PO BIDWMEAL 08/26/21 04/03/22 History Tablets] Pantoprazole Sodium 20 mg PO DAILY 08/26/21 04/03/22 History Prazosin HCl 15 mg PO HS 08/26/21 04/03/22 History Sennosides/Docusate Sodium 1 each PO BID 08/26/21 04/03/22 History [Docusate Sodium-Sennosides Tab] Tramadol HCl [Tramadol 50mg 100 mg PO DAILYP PRN 08/26/21 04/03/22 History Tab] Trazodone HCl 200 mg PO HS 08/26/21 04/03/22 History glipiZIDE [Glipizide] 10 mg PO BID 08/26/21 04/03/22 History aspirin 81 mg tablet,delayed 81 mg PO DAILY #30 tab 09/11/21 04/03/22 Rx release Atorvastatin Calcium [Lipitor 40mg 40 mg PO DAILY 02/19/22 04/03/22 History Tab] Spironolactone [Spironolactone 25 mg PO DAILY 02/19/22 04/03/22 History 25mg Tablet] carvediloL [Carvedilol 12.5mg Tab] 12.5 mg PO BID 02/19/22 04/03/22 History lisinopriL [Lisinopril] 40 mg PO DAILY 02/19/22 04/03/22 History nicotine 21 mg/24 hr daily 21 mg TRANSDERMA DAILYP PRN #28 02/26/22 06
--- NOTE | 2022-04-04 10:44 | HMH.PNCARD ---
Subjective Date: 04/04/22 Time: 10:44 Principal diagnosis: CHF, Anemia/GI bleed Interval history: 72-year-old white male sitting in bedside in no acute distress. Shortness of breath seems to be improved clinically and patient relates his lower extremity edema has improved as well. He did receive 2 units of blood yesterday with minimal response in his hemoglobin which is currently 6.9. Renal insufficiency/NIMO did improved despite Lasix for CHF yesterday. Exam Vital signs and Labs for Last 24 Hours: Temp Pulse Resp BP Pulse Ox 97.9 F 62 18 94/56 L 96 04/04/22 08:00 04/04/22 08:00 04/04/22 08:00 04/04/22 08:00 04/04/22 09:31 Laboratory Results - last 24 hr 04/03/22 08:30: Blood Type Confirm O Positive 04/03/22 10:22: Blood Type O Positive, Antibody Screen Negative, Crossmatch (AHG) See Detail 04/03/22 12:05: Troponin I 0.23 H 04/03/22 15:45: Troponin I 0.23 H 04/03/22 16:30: POC Glucose 86 04/04/22 00:09: Hgb 6.8 L*, Hct 21.9 L 04/04/22 01:00: Hgb 6.9 L, Hct 22.1 L 04/04/22 05:45: WBC 4.7 L D, RBC 2.44 L, Hgb 6.9 L, Hct 22.6 L, MCV 92.6, MCH 28.2, MCHC 30.5 L, RDW 19.9 H, Plt Count 228, MPV 9.2, Neut % (Auto) 61.5, Lymph % (Auto) 28.1, [place] % (Auto) 9.0, Eos % (Auto) 1.0, Baso % (Auto) 0.4, Neut # (Auto) 2.9, Lymph # (Auto) 1.3, [place] # (Auto) 0.4, Eos # (Auto) 0.0, Baso # (Auto) 0.0 04/04/22 05:45: Sodium 135 L, Potassium 4.5 D, Chloride 103, Carbon Dioxide 28, Anion Gap 8.5, BUN 50 H, Creatinine 1.40 H, Estimated Creat Clear 71, Estimated GFR 50 L, Est GFR ( Amer) 60, Glucose 52 L D, Calcium 9.5 04/04/22 09:30: Ammonia 27 I & O for Last 24 hours: Intake & Output 04/01/22 04/02/22 04/03/22 04/04/22 11:59 11:59 11:59 11:59 Intake Total 1220 / 1220 Output Total 1125 / 1125 Balance 95 / 95 Weight 220 lb 236 lb 5.016 oz - Constitutional no acute distress - *Routine Respiratory Exam Present: CTA bilaterally - *Routine Cardiovascular Exam Present: RRR - *Routine Extremities Exam Present: edema. Absent: cyanosis, clubbing - *Routine Neurological Exam Present: alert, oriented X3 Progress Note: A&P (1) Acute on chronic anemia Status: Acute (2) Ascites Status: Acute (3) Hyperkalemia Status: Acute (4) Acute kidney injury Status: Acute (5) Acute on chronic systolic congestive heart failure, NYHA class 4 Status: Acute (6) Cardiac murmur, unspecified Status: Acute (7) COPD (chronic obstructive pulmonary disease) Status: Chronic (8) Diabetes mellitus type 2 in obese Status: Chronic (9) Hx of CABG Problem details: 6 vessel (1998) Status: Chronic (10) Hyperlipidemia Status: Chronic (11) Hypertension Status: Chronic (12) Ischemic cardiomyopathy with implantable cardioverter-defibrillator (ICD) Status: Chronic (13) Abdominal aortic aneurysm (AAA) Problem details: 3.1 CM AUG 2021. Status: Chronic (14) Elevated troponin Status: Acute Assessment and Plan for All Diagnoses:: 1. Acute on chronic anemia, exacerbated by dual antiplatelet therapy (aspirin and Brilinta) after stenting of saphenous vein graft arteries on 02/21/2022. DAPT discontinued yesterday. No complaints of chest pain. Plans for EGD in AM per Surgeon. 2. Elevated troponin, continue to trend but likely related to demand ischemia from anemia and known ischemic cardiomyopathy/CHF. No plans for cath at this time. 3. Hyperkalemia, patient has received calcium gluconate in the ER. 3. Acute kidney injury, improving 4. Acute on chronic systolic congestive heart failure, clinically improving with IV Lasix and oral spironolactone. 5. Diabetes mellitus, per PCP 6. CAD with recent stenting of the saphenous vein grafts, 02/22/2020, holding aspirin and Brilinta at this time due to anemia/GI bleed. 7. AICD in situ with Ischemic cardiomyopathy, chronic with ejection fraction of 20-25%. Continue lisinopril, carvedilol, Jardiance, Lasix and spironolactone. 8.
--- NOTE | 2022-04-04 12:23 | PC.NURSE ---
Fingerstick was obtained due to diabetic history, reading was 134 at 1220
[2022-04-04 12:27] LABS: POC Glucose,Bedside 134 (70-110)
[2022-04-04 16:54] LABS: POC Glucose,Bedside 89 (70-110)
--- NOTE | 2022-04-04 17:08 | PC.NURSE ---
Pt has been a&ox4, VSS. Pt has been awake throughout day and sitting up in the bed. Pt had a new IV inserted this shift in his right forearm. No new complaints from patient. Will continue to monitor.
[2022-04-04 17:52] LABS: Occult Blood,Stool Positive (Negative)
[2022-04-05] VITALS (23 sets, daily range): BP systolic 87–119; BP diastolic 52–77; PULSE 66–97; RESP 16–18; TEMP 36.2–37.1; O2SAT 91–98; BMI 23.6; BMI 29.8
[2022-04-05 01:15] LABS: Hemoglobin 7.9 g/dL (14.1-18.0)
--- NOTE | 2022-04-05 04:57 | PC.NURSE ---
Patient A&O x4. Patient has rested intermittently throughout shift. Transfused 1 unit of blood this shift, repeat H&H completed. Patient states he has had new diarrhea this shift. Patient wears 2L per NC prn. No complaints voiced at this time. Consent obtained for EGD in the am.
[2022-04-05 06:33] LABS: Basophils % 0.6 % (0.1-2.0); Eosinophils # 0.1 K/mm3 (0.0-0.4); Eosinophils % 1.2 % (0.1-12.0); Hematocrit 26.4 % (42.0-52.0); Hemoglobin 8.3 g/dL (14.1-18.0); Lymphocytes # 0.9 K/mm3 (0.7-4.5); Lymphocytes % 16.5 % (10-50); Mean Corpuscular HGB Conc 31.4 g/dL (31.8-35.4); Mean Corpuscular Volume 92.3 fl (80-94); Mean Platelet Volume 8.7 fl (7.4-10.4); Monocytes # 0.5 K/mm3 (0.1-1.0); Monocytes % 8.8 % (1.7-9.3); Neutrophils # 3.8 K/mm3 (1.8-7.8); Platelet Count 219 K/mm3 (142-424); Red Blood Count 2.86 M/mm3 (4.60-6.20); Red Cell Distribution Width 18.8 % (11.5-17.5); White Blood Count 5.2 K/mm3 (4.8-10.8)
--- NOTE | 2022-04-05 06:35 | PC.NURSE ---
patient off floor for EGD @ this time.
[2022-04-05 06:39] LABS: Chloride 102 mmol/L (98-107); Sodium 137 mmol/L (136-145)
[2022-04-05 06:42] LABS: Blood Urea Nitrogen 46 mg/dl (9-20); Calcium 9.8 mg/dl (8.4-10.2); Carbon Dioxide 28 mmol/L (22.0-30.0); Creatinine Clearance Estimated 85 mL/min (50-200); Estimated Glomerular Filt Rate 66 ml/min (>60); GFR (African American) 79 ML/MIN (>60); Glucose 55 mg/dl (74-100)
--- NOTE | 2022-04-05 06:53 | PC.NURSE ---
Notified pre-op of glucose of 55.
--- NOTE | 2022-04-05 06:54 | P.PN_ITS ---
[facility] Anesthesia Checklist - Patient Identification Patient Identification: Arm Band - Structural Data Admitted From: Inpatient Planned Operative Procedure/s: EGD Consent for Planned Operative Procedure(s) Verified: Yes - NPO Status Verified Time NPO: 00:00 - Airway Assessment C-Spine Mobility Assessed: Yes TMJ Mobility Assessed: Yes Dentition: Edentulous - Neurological Assessment Level of Consciousness: Awake Hx Seizures: No Numbness or tingling in extremities: No - Anesthesia Plan Anesthesia Risk discussed: Yes Anesthesia Plan: Verified ASA Class: IV (IV E) Anesthesia Type: MAC [facility] History I have reviewed the patient's past medical history: Yes Medical History: Reports:: Aneurysm (AAA), Congestive Heart Failure, Chronic Obstructive Pulmonary Disease (COPD), Congenital Heart Disease, Coronary Artery Disease, Diabetes Mellitus Type 2, Hyperlipidemia, Hypertension, Internal Pacemaker, Myocardial Infarction, Renal Insufficiency (NIMO) Denies:: Cancer, Diabetes Mellitus Type 1, MRSA *Have you ever received a pneumonia vaccine?: Yes *Have you received a flu vaccine this season?: Yes Other Medical History: Reports: Anemia, Arthritis Anesthesia experience/problems:: None Other Surgeries: Yes: No Previous Surgery, Cardiac Catheterization, Colonoscopy, Coronary Stent, Open Heart Surgery, Pacemaker Amputation: No Fractures: No - *Social History Last grade of school completed: 9th or 10th Smoking Status: Current some day smoker Tobacco Type: cigarettes # Packs/Day (cigarettes): 1 Alcohol Intake: former Substance Use Type: denies use *Occupational Status:: disabled Housing: house Household Members: children *Travel in the last 8 weeks: Inside the [facility] Family Hx:: Diabetes, Heart Attack, Hyperlipidemia, Hypertension
--- NOTE | 2022-04-05 07:10 | CT_ITS ---
FINAL REPORT TECHNIQUE: Pre-and postcontrast images of the abdomen and pelvis were performed by computed tomography. Extensive 3-D reconstruction images were performed. A CTA was performed. This study was performed with techniques to keep radiation doses as low as reasonably achievable (ALARA). Individualized dose reduction techniques using automated exposure control or adjustment of mA and/or kV according to the patient''s size were employed. CLINICAL HISTORY: GI Blood Loss, EGD normal COMPARISON: 04/03/2022 FINDINGS: ABDOMEN/PELVIS The lung bases are clear. Precontrast images demonstrate no evidence of nephrolithiasis. The liver has an irregular contour, may represent cirrhosis. There is a small amount of ascites which is partially improved. There is bilateral adrenal gland enlargement, may represent adenomas or hyperplasia. There is mild scarring in the right kidney. There is nonspecific gallbladder wall thickening. The spleen and pancreas are unremarkable. CTA: There is moderate to severe vascular calcification. There is mild aneurysmal dilatation of the infrarenal abdominal aorta measuring 34 mm. There is no evidence of dissection. The celiac axis is intact. There is mild calcified plaque at the origin of the SMA with probable moderate stenosis. The more distal SMA appears patent. The THOMAS appears patent. There is calcified plaque at the origin of the renal arteries with apparent mild to moderate stenosis at the origin on the right. There is an accessory right renal artery. There is no significant stenosis involving the left renal artery. There is mild stenosis of the right common iliac arteries. The internal iliacs arteries are intact. IMPRESSION: Findings may represent cirrhosis with partially improved ascites. Nonspecific gallbladder wall thickening. Small abdominal aortic aneurysm. Probable moderate stenosis at the origin of the SMA. Probable moderate stenosis at the origin of the right renal artery. Reviewed, Interpreted and Dictated by Patrice Singh III, MD Transcribed by Daphne Wilcox Authenticated and [facility]
--- NOTE | 2022-04-05 07:12 | P.PCN_ITS ---
- Procedure: Date: 04/05/22 Patient Date of :: 1950 Procedure Performed:: Esophagogastroduodenoscopy Indications:: Patient is a 72-year-old male smoker from [facility] with history of coronary artery disease and congestive heart failure (ejection fraction 20%) and ischemic cardiomyopathy. He had prior AICD placement. On home oxygen. He has prior history of IA in 1998 and subsequent CABGx6. He was admitted 02/18/22 to this facility with abdominal pain and was noted to have a non-STEMI. He underwent left heart catheterization with STEPHEN placement on 02/21/2022 on dual antiplatelet therapy. He presented to the emergency department (04/03/22) with symptoms of leg swelling and shortness of air. Evaluation in the emergency department revealed hemoglobin of 6.2. Recent hemoglobin was in the mid 9 range. Hemoglobin in August 2021 of 13. He was admitted for inpatient management. Patient was transfused 2 units packed red blood cells for hemoglobin of 6.2 with posttransfusion hemoglobin of 6.8. BUN is 50 with previous normal BUN. Surgical consultation was ordered. Patient has had some mild mid abdominal discomfort. Denies severe pain. Denies prior history of known ulcers. He has had some intermittent self-limited black stools but no hematochezia. He was transfused for hemoglobin of 6.2 with 2 units with subsequent hemoglobin of 6.8. He was given an additional 2 units with posttransfusion hemoglobin of 7.9. Plan was made for EGD. Patient describes diarrhea. Performing Provider:: Patrice Drew MD Referring Provider:: Khanh Carlos MD Sedation:: MAC sedation Procedure:: Patient was taken to endoscopy procedure room. He was positioned in lateral decubitus position. Adequate intravenous sedation was achieved with anesthesia titration of propofol. Olympus endoscope was inserted via the oropharynx. Esophagus was cannulated. Overall esophagus appeared unremarkable. Gastroesophageal junction was encountered at approximately 47 cm from the incisors. Stomach was cannulated and insufflated. Retroflexion revealed no evidence of any hiatal hernia. There was some diffuse nonerosive gastropathy. Biopsies were not performed due to patient being on dual antiplatelet therapy. Pylorus was traversed. Duodenal bulb and second and third portion of the duodenum were unremarkable with no evidence of any bleeding source or stigmata of recent bleeding. Endoscope was advanced generously into the distal duodenum which appeared unremarkable. Endoscope was withdrawn into the stomach which was desufflated. Endoscope was withdrawn. Findings:: Gastroesophageal junction at 47 cm from the incisors Mild gastropathy No identifiable source of blood loss on upper endoscopy or stigmata of recent bleeding Recommendations:: Patient has shown suboptimal response to transfusion. I will obtain a CT angiogram of the abdomen and pelvis. Continue to transfuse as needed and monitor hemoglobin. Complications:: None immediately apparent Estimated blood obtained (mL): 0
--- NOTE | 2022-04-05 08:28 | HMH.PNCARD ---
Subjective Date: 04/05/22 Time: 08:28 Principal diagnosis: CHF, Anemia/GI bleed Interval history: 72-year-old white male in bed somewhat groggy due to sedation for EGD earlier this morning. Denies any chest pain, pressure or tightness. Some audible congestion felt to be upper airway congestion with no appreciable crackles noted posteriorly in the bases. Patient continues to diurese with IV Lasix with improvement in his renal functions. EGD revealed no evidence of upper GI source for bleeding. He has been transfused a total of 4 units. Hemoglobin today is around 8.3. Surgery has recommended a repeat CT of the abdomen today. Exam Vital signs and Labs for Last 24 Hours: Temp Pulse Resp BP Pulse Ox 97.1 F L 78 16 89/52 L 91 L 04/05/22 07:11 04/05/22 07:11 04/05/22 07:11 04/05/22 07:11 04/05/22 07:11 Laboratory Results - last 24 hr 04/03/22 10:22: Blood Type O Positive, Antibody Screen Negative, Crossmatch (AHG) See Detail 04/04/22 09:30: Ammonia 27 04/04/22 12:18: POC Glucose 134 H 04/04/22 16:47: POC Glucose 89 04/04/22 17:36: Stool Occult Blood Positive A 04/05/22 00:57: Hgb 7.9 L D, Hct 25.0 L 04/05/22 05:41: WBC 5.2, RBC 2.86 L, Hgb 8.3 L, Hct 26.4 L, MCV 92.3, MCH 29.0, MCHC 31.4 L, RDW 18.8 H, Plt Count 219, MPV 8.7, Neut % (Auto) 73.0, Lymph % (Auto) 16.5, [place] % (Auto) 8.8, Eos % (Auto) 1.2, Baso % (Auto) 0.6, Neut # (Auto) 3.8, Lymph # (Auto) 0.9, [place] # (Auto) 0.5, Eos # (Auto) 0.1, Baso # (Auto) 0.0 04/05/22 05:41: Sodium 137, Potassium 4.0, Chloride 102, Carbon Dioxide 28, Anion Gap 11.0, BUN 46 H, Creatinine 1.10 D, Estimated Creat Clear 85, Estimated GFR 66, Est GFR ( Amer) 79 D, Glucose 55 L, Calcium 9.8 I & O for Last 24 hours: Intake & Output 04/02/22 04/03/22 04/04/22 04/05/22 11:59 11:59 11:59 11:59 Intake Total 1220 / 1220 980 / 980 Output Total 1675 / 1675 1775 / 1775 Balance -455 / -455 -795 / -795 Weight 220 lb 236 lb 5.016 oz 220 lb 7.396 oz - Constitutional no acute distress - *Routine Respiratory Exam Present: CTA bilaterally - *Routine Cardiovascular Exam Present: RRR - *Routine Extremities Exam Present: edema. Absent: cyanosis, clubbing Progress Note: A&P (1) Acute on chronic anemia Status: Acute (2) Ascites Status: Acute (3) Hyperkalemia Status: Acute (4) Acute kidney injury Status: Acute (5) Acute on chronic systolic congestive heart failure, NYHA class 4 Status: Acute (6) Cardiac murmur, unspecified Status: Acute (7) COPD (chronic obstructive pulmonary disease) Status: Chronic (8) Diabetes mellitus type 2 in obese Status: Chronic (9) Hx of CABG Problem details: 6 vessel (1998) Status: Chronic (10) Hyperlipidemia Status: Chronic (11) Hypertension Status: Chronic (12) Ischemic cardiomyopathy with implantable cardioverter-defibrillator (ICD) Status: Chronic (13) Abdominal aortic aneurysm (AAA) Problem details: 3.1 CM AUG 2021. Status: Chronic (14) Elevated troponin Status: Acute Assessment and Plan for All Diagnoses:: 1. Acute on chronic anemia, exacerbated by dual antiplatelet therapy (aspirin and Brilinta) after stenting of saphenous vein graft arteries on 02/21/2022. DAPT discontinued. No complaints of chest pain. Patient had received a total of 4 units of blood with hemoglobin 8.3 this morning. No identifiable source for anemia/GI bleed on EGD this AM. 2. Elevated troponin, likely related to demand ischemia from anemia and known ischemic cardiomyopathy/CHF. No plans for cath at this time. 3. Hyperkalemia, resolved. 3. Acute kidney injury, improving. 4. Acute on chronic systolic congestive heart failure, clinically improving with IV Lasix and oral spironolactone. 5. Diabetes mellitus, per PCP 6. CAD with recent stenting of the saphenous vein grafts, 02/22/2020, aspirin and Brilinta discontinued at this time due to anemia/GI bleed. 7. AICD in situ with Ischemic
[2022-04-05 08:45] LABS: Alanine Aminotransferase 421 U/L (12-78); Aspartate Amino Transferase 436 U/L (17-59); Bilirubin,Unconjugated 1.5 mg/dL (0.0-1.1)
[2022-04-05 08:46] LABS: Albumin Level 3.6 g/dl (3.5-5.0); Alkaline Phosphatase 94 U/L (38-126); Bilirubin,Direct 0.8 mg/dl (0.0-0.4); Bilirubin,Indirect 1.5 mg/dL (0.0-0.9); Bilirubin,Total 2.3 mg/dl (0.2-1.3); Total Protein,Serum 6.3 g/dl (6.3-8.2)
[2022-04-05 08:58] LABS: Troponin I 0.18 ng/ml (0.00-0.034)
--- NOTE | 2022-04-05 09:17 | PC.NURSE ---
Pt went down to RAD
--- NOTE | 2022-04-05 09:18 | HMH.ACPN2 ---
Internal Medicine - PN: Subj *Date: 04/05/22 *Time: 08:20 Exam Vital signs and Labs for Last 24 Hours: Temp Pulse Resp BP Pulse Ox 97.1 F L 97 H 16 101/75 L 93 L 04/05/22 07:50 04/05/22 07:50 04/05/22 07:50 04/05/22 07:50 04/05/22 07:50 Laboratory Results - last 24 hr 04/03/22 10:22: Blood Type O Positive, Antibody Screen Negative, Crossmatch (AHG) See Detail 04/04/22 09:30: Ammonia 27 04/04/22 12:18: POC Glucose 134 H 04/04/22 16:47: POC Glucose 89 04/04/22 17:36: Stool Occult Blood Positive A 04/05/22 00:57: Hgb 7.9 L D, Hct 25.0 L 04/05/22 05:41: WBC 5.2, RBC 2.86 L, Hgb 8.3 L, Hct 26.4 L, MCV 92.3, MCH 29.0, MCHC 31.4 L, RDW 18.8 H, Plt Count 219, MPV 8.7, Neut % (Auto) 73.0, Lymph % (Auto) 16.5, [place] % (Auto) 8.8, Eos % (Auto) 1.2, Baso % (Auto) 0.6, Neut # (Auto) 3.8, Lymph # (Auto) 0.9, [place] # (Auto) 0.5, Eos # (Auto) 0.1, Baso # (Auto) 0.0 04/05/22 05:41: Sodium 137, Potassium 4.0, Chloride 102, Carbon Dioxide 28, Anion Gap 11.0, BUN 46 H, Creatinine 1.10 D, Estimated Creat Clear 85, Estimated GFR 66, Est GFR ( Amer) 79 D, Glucose 55 L, Calcium 9.8 04/05/22 05:41: Troponin I 0.18 H 04/05/22 05:41: Total Bilirubin 2.3 H, Direct Bilirubin 0.8 H, Conjugated Bilirubin 0.0, Indirect Bilirubin 1.5 H, Unconjugated Bilirubin 1.5 H, AST 436 H* D, ALT 421 H*, Alkaline Phosphatase 94, Total Protein 6.3, Albumin 3.6 I & O for Last 24 hours: Intake & Output 04/02/22 04/03/22 04/04/22 04/05/22 11:59 11:59 11:59 11:59 Intake Total 1220 / 1220 1230 / 1230 Output Total 1675 / 1675 2475 / 2475 Balance -455 / -455 -1245 / -1245 Weight 220 lb 236 lb 5.016 oz 220 lb 7.396 oz - Constitutional no acute distress - *Routine HEENT Exam Head: Present: normocephalic Eye: Present: PERRL ENT: Present: mucous membranes moist - *Routine Neck Exam Present: supple. Absent: lymphadenopathy - *Routine Respiratory Exam Present: wheezes - *Routine Cardiovascular Exam Present: RRR - *Routine Abdominal Exam Present: soft, normoactive bowel sounds. Absent: tenderness - *Routine Extremities Exam Absent: cyanosis, clubbing, edema - *Routine Skin Exam Present: warm. Absent: rash - *Routine Neurological Exam Present: alert, oriented X3 Assessment and Plan (1) Acute on chronic anemia Status: Acute Category: Medical Code(s): D64.9 - Anemia, unspecified (2) Ascites Status: Acute Category: Medical Code(s): R18.8 - Other ascites (3) Hyperkalemia Status: Acute Category: Medical Code(s): E87.5 - Hyperkalemia (4) Acute kidney injury Status: Acute Category: Medical Code(s): N17.9 - Acute kidney failure, unspecified (5) Acute on chronic systolic congestive heart failure, NYHA class 4 Status: Acute Category: Medical Code(s): I50.23 - Acute on chronic systolic (congestive) heart failure (6) Cardiac murmur, unspecified Status: Acute Category: Medical Code(s): R01.1 - Cardiac murmur, unspecified (7) COPD (chronic obstructive pulmonary disease) Status: Chronic Qualifiers: COPD type: unspecified COPD Qualified Code(s): J44.9 - Chronic obstructive pulmonary disease, unspecified Category: Medical Code(s): J44.9 - Chronic obstructive pulmonary disease, unspecified (8) Diabetes mellitus type 2 in obese Status: Chronic Category: Medical Code(s): E11.69 - Type 2 diabetes mellitus with other specified complication; E66.9 - Obesity, unspecified (9) Hx of CABG Problem details: 6 vessel (1998) Status: Chronic Category: Surgical Code(s): Z95.1 - Presence of aortocoronary bypass graft (10) Hyperlipidemia Status: Chronic Qualifiers: Hyperlipidemia type: mixed hyperlipidemia Qualified Code(s): E78.2 - Mixed hyperlipidemia Category: Medical Code(s): E78.5 - Hyperlipidemia, unspecified (11) Hypertension Status: Chronic Qualifiers: Hypertension type: primary hypertension Qualified Code(s): I10 - Essential (primary) hy
--- NOTE | 2022-04-05 09:45 | PC.NURSE ---
Pt returned to floor
[2022-04-05 10:49] LABS: POC Glucose,Bedside 106 (70-110)
[2022-04-05 10:49] LABS: POC Glucose,Bedside 58 (70-110)
--- NOTE | 2022-04-05 11:34 | PC.NURSE ---
Spoke with JAYDEN about changing diet to clears. I also asked her to ask Dr. Drew about the pts blood thinner shot if that is something we need to give. Waiting for a call back.
[2022-04-05 14:05] LABS: POC Glucose,Bedside 61 (70-110)
--- NOTE | 2022-04-05 14:57 | PC.NURSE ---
Left a message for Dr. godinez drug safety assistant. Wanted to clarify about the pts blood thinner shot to not give to pt or too? Waiting on a call back.
[2022-04-05 18:44] LABS: Hematocrit 26.8 % (42.0-52.0); Hemoglobin 8.4 g/dL (14.1-18.0)
[2022-04-05 18:55] LABS: INR 1.18 (0.9-1.1); Prothrombin Time 13.2 seconds (10.1-12.5)
--- NOTE | 2022-04-05 19:32 | PC.NURSE ---
There are no changes from earlier bio. He had a very uneventful shift. Will continue to monitor.
[2022-04-06] VITALS (10 sets, daily range): BP systolic 83–123; BP diastolic 45–84; PULSE 74–90; RESP 17–21; TEMP 36.6–37.2; O2SAT 90–96; BMI 31.1
--- NOTE | 2022-04-06 05:05 | PC.NURSE ---
Patient rested intermittently throughout shift. Patient on 2l nc prn sating high 90's. Edema noted in BLE right leg more edematous then left side. No new complaints expressed.
[2022-04-06 07:24] LABS: Basophils % 0.5 % (0.1-2.0); Eosinophils # 0.1 K/mm3 (0.0-0.4); Eosinophils % 1.9 % (0.1-12.0); Hematocrit 27.3 % (42.0-52.0); Hemoglobin 8.4 g/dL (14.1-18.0); Lymphocytes # 1.2 K/mm3 (0.7-4.5); Mean Corpuscular HGB Conc 30.9 g/dL (31.8-35.4); Mean Corpuscular Hemoglobin 28.4 pg (27.0-31.2); Mean Corpuscular Volume 92.1 fl (80-94); Mean Platelet Volume 8.1 fl (7.4-10.4); Monocytes # 0.6 K/mm3 (0.1-1.0); Neutrophils # 3.8 K/mm3 (1.8-7.8); Neutrophils % 66.4 % (37.0-80.0); Platelet Count 218 K/mm3 (142-424); Red Blood Count 2.97 M/mm3 (4.60-6.20); Red Cell Distribution Width 19.2 % (11.5-17.5); White Blood Count 5.7 K/mm3 (4.8-10.8)
[2022-04-06 07:30] LABS: Chloride 100 mmol/L (98-107); Sodium 139 mmol/L (136-145)
[2022-04-06 07:31] LABS: Potassium 3.9 mmoL/L (3.5-5.1)
[2022-04-06 07:33] LABS: Blood Urea Nitrogen 29 mg/dl (9-20); Creatinine Clearance Estimated 97 mL/min (50-200); Estimated Glomerular Filt Rate 83 ml/min (>60); GFR (African American) 100 ML/MIN (>60)
[2022-04-06 07:34] LABS: Anion Gap 8.9 mEq/L (5-15); Calcium 9.4 mg/dl (8.4-10.2); Carbon Dioxide 34 mmol/L (22.0-30.0); Glucose 110 mg/dl (74-100)
--- NOTE | 2022-04-06 09:23 | HMH.ACPN2 ---
Internal Medicine - PN: Subj *Date: 04/06/22 *Time: 19:52 Interval history: doing better - labs pending - no def active bleeding Exam Vital signs and Labs for Last 24 Hours: Temp Pulse Resp BP Pulse Ox 98.1 F 85 17 123/84 95 04/06/22 08:00 04/06/22 08:00 04/06/22 08:00 04/06/22 08:00 04/06/22 08:00 Laboratory Results - last 24 hr 04/05/22 06:55: POC Glucose 61 L 04/05/22 07:17: POC Glucose 58 L 04/05/22 07:35: POC Glucose 106 04/05/22 18:07: Hgb 8.4 L, Hct 26.8 L 04/05/22 18:07: PT 13.2 H, INR 1.18 H 04/06/22 06:28: WBC 5.7, RBC 2.97 L, Hgb 8.4 L, Hct 27.3 L, MCV 92.1, MCH 28.4, MCHC 30.9 L, RDW 19.2 H, Plt Count 218, MPV 8.1, Neut % (Auto) 66.4, Lymph % (Auto) 21.0, [place] % (Auto) 10.0 H, Eos % (Auto) 1.9, Baso % (Auto) 0.5, Neut # (Auto) 3.8, Lymph # (Auto) 1.2, [place] # (Auto) 0.6, Eos # (Auto) 0.1, Baso # (Auto) 0.0 04/06/22 06:28: Sodium 139, Potassium 3.9, Chloride 100, Carbon Dioxide 34 H, Anion Gap 8.9, BUN 29 H D, Creatinine 0.90, Estimated Creat Clear 97, Estimated GFR 83, Est GFR ( Amer) 100 D, Glucose 110 H, Calcium 9.4 I & O for Last 24 hours: Intake & Output 04/03/22 04/04/22 04/05/22 04/06/22 11:59 11:59 11:59 11:59 Intake Total 1220 / 1220 1230 / 1230 1965 / 1965 Output Total 1675 / 1675 4075 / 4075 3300 / 3300 Balance -455 / -455 -2845 / -2845 -1334 / -1334 Weight 220 lb 236 lb 5.016 oz 220 lb 7.396 oz 230 lb 4.8 oz - Constitutional no acute distress, obese - *Routine HEENT Exam Head: Present: normocephalic Eye: Present: EOMI, PERRL ENT: Present: mucous membranes dry - *Routine Neck Exam Absent: JVD - *Routine Respiratory Exam Present: CTA bilaterally - *Routine Cardiovascular Exam Present: RRR, murmur, S4 - *Routine Abdominal Exam Present: soft. Absent: tenderness - *Routine Extremities Exam Present: edema - *Routine Skin Exam Present: intact - *Routine Neurological Exam Present: alert, CN II-XII intact - Routine Psychiatric Exam Present: normal affect Assessment and Plan (1) Acute on chronic anemia Status: Acute Category: Medical Code(s): D64.9 - Anemia, unspecified (2) Ascites Status: Acute Category: Medical Code(s): R18.8 - Other ascites (3) Hyperkalemia Status: Acute Category: Medical Code(s): E87.5 - Hyperkalemia (4) Acute kidney injury Status: Acute Category: Medical Code(s): N17.9 - Acute kidney failure, unspecified (5) Acute on chronic systolic congestive heart failure, NYHA class 4 Status: Acute Category: Medical Code(s): I50.23 - Acute on chronic systolic (congestive) heart failure (6) Cardiac murmur, unspecified Status: Acute Category: Medical Code(s): R01.1 - Cardiac murmur, unspecified (7) COPD (chronic obstructive pulmonary disease) Status: Chronic Qualifiers: COPD type: unspecified COPD Qualified Code(s): J44.9 - Chronic obstructive pulmonary disease, unspecified Category: Medical Code(s): J44.9 - Chronic obstructive pulmonary disease, unspecified (8) Diabetes mellitus type 2 in obese Status: Chronic Category: Medical Code(s): E11.69 - Type 2 diabetes mellitus with other specified complication; E66.9 - Obesity, unspecified (9) Hx of CABG Problem details: 6 vessel (1998) Status: Chronic Category: Surgical Code(s): Z95.1 - Presence of aortocoronary bypass graft (10) Hyperlipidemia Status: Chronic Qualifiers: Hyperlipidemia type: mixed hyperlipidemia Qualified Code(s): E78.2 - Mixed hyperlipidemia Category: Medical Code(s): E78.5 - Hyperlipidemia, unspecified (11) Hypertension Status: Chronic Qualifiers: Hypertension type: primary hypertension Qualified Code(s): I10 - Essential (primary) hypertension Category: Medical Code(s): I10 - Essential (primary) hypertension (12) Ischemic cardiomyopathy with implantable cardioverter-defibrillator (ICD) Status: Chronic Category: Medical Code(s): I25.5 - Ischemic
--- NOTE | 2022-04-06 09:59 | HMH.GSPN ---
Subjective Narrative: No complaints at this time. No clinical bleeding. EGD yesterday revealed no active source of proximal upper GI hemorrhage. He underwent CT angiogram of the abdomen and pelvis. This reveals findings business center representative of cirrhosis with partially improved ascites from admission. He does have a small abdominal aortic aneurysm. There is moderate stenosis at the origin of the superior mesenteric artery. Probable moderate stenosis at the origin of the right renal artery. There is no evidence of any active bleeding at the time of angiogram. Progress Note: A&P (1) Acute on chronic anemia Status: Acute (2) Ascites Status: Acute (3) Hyperkalemia Status: Acute (4) Acute kidney injury Status: Acute (5) Acute on chronic systolic congestive heart failure, NYHA class 4 Status: Acute (6) Cardiac murmur, unspecified Status: Acute (7) COPD (chronic obstructive pulmonary disease) Status: Chronic (8) Diabetes mellitus type 2 in obese Status: Chronic (9) Hx of CABG Problem details: 6 vessel (1998) Status: Chronic (10) Hyperlipidemia Status: Chronic (11) Hypertension Status: Chronic (12) Ischemic cardiomyopathy with implantable cardioverter-defibrillator (ICD) Status: Chronic (13) Abdominal aortic aneurysm (AAA) Problem details: 3.1 CM AUG 2021. Status: Chronic (14) Elevated troponin Status: Acute Assessment and Plan for All Diagnoses:: Patient's hemoglobin has been stable. He does have Hemoccult positive stool however. Continue to monitor hemoglobin/hematocrit. Some degree of his issues may be secondary to liver disease/cirrhosis. Gastroenterology input likely beneficial and indicated. I will go ahead and advance diet. Exam Vital signs and Labs for Last 24 Hours: Temp Pulse Resp BP Pulse Ox 98.1 F 85 17 123/84 95 04/06/22 08:00 04/06/22 08:00 04/06/22 08:00 04/06/22 08:00 04/06/22 08:00 Laboratory Results - last 24 hr 04/05/22 06:55: POC Glucose 61 L 04/05/22 07:17: POC Glucose 58 L 04/05/22 07:35: POC Glucose 106 04/05/22 18:07: Hgb 8.4 L, Hct 26.8 L 04/05/22 18:07: PT 13.2 H, INR 1.18 H 04/06/22 06:28: WBC 5.7, RBC 2.97 L, Hgb 8.4 L, Hct 27.3 L, MCV 92.1, MCH 28.4, MCHC 30.9 L, RDW 19.2 H, Plt Count 218, MPV 8.1, Neut % (Auto) 66.4, Lymph % (Auto) 21.0, [place] % (Auto) 10.0 H, Eos % (Auto) 1.9, Baso % (Auto) 0.5, Neut # (Auto) 3.8, Lymph # (Auto) 1.2, [place] # (Auto) 0.6, Eos # (Auto) 0.1, Baso # (Auto) 0.0 04/06/22 06:28: Sodium 139, Potassium 3.9, Chloride 100, Carbon Dioxide 34 H, Anion Gap 8.9, BUN 29 H D, Creatinine 0.90, Estimated Creat Clear 97, Estimated GFR 83, Est GFR ( Amer) 100 D, Glucose 110 H, Calcium 9.4 I & O for Last 24 hours: Intake & Output 04/03/22 04/04/22 04/05/22 04/06/22 11:59 11:59 11:59 11:59 Intake Total 1220 / 1220 1230 / 1230 1965 / 1966 Output Total 1675 / 1675 4075 / 4075 3300 / 3300 Balance -455 / -455 -2845 / -2845 -1334 / -1334 Weight 220 lb 236 lb 5.016 oz 220 lb 7.396 oz 230 lb 4.8 oz - *Routine Abdominal Exam Comments: Slightly distended.
[2022-04-06 10:09] LABS: POC Glucose,Bedside 136 (70-110)
[2022-04-06 10:13] LABS: Alanine Aminotransferase 336 U/L (12-78); Aspartate Amino Transferase 224 U/L (17-59); Bilirubin,Unconjugated 1.6 mg/dL (0.0-1.1)
[2022-04-06 10:14] LABS: Albumin Level 3.9 g/dl (3.5-5.0); Alkaline Phosphatase 82 U/L (38-126); Bilirubin,Direct 0.7 mg/dl (0.0-0.4); Bilirubin,Indirect 1.6 mg/dL (0.0-0.9); Bilirubin,Total 2.3 mg/dl (0.2-1.3); Total Protein,Serum 7.1 g/dl (6.3-8.2)
[2022-04-06 10:25] LABS: Troponin I 0.11 ng/ml (0.00-0.034)
--- NOTE | 2022-04-06 18:35 | PC.NURSE ---
Pt has done fine this shift. New PIV placed in LFA. Pt remains on 2LNC. Pt has tolerated cardiac diet well. No other acute changes. Will monitor.
[2022-04-07] VITALS (11 sets, daily range): BP systolic 94–114; BP diastolic 46–68; PULSE 64–90; RESP 17–22; TEMP 36.6–36.8; O2SAT 94–98; BMI 31.6
--- NOTE | 2022-04-07 04:49 | PC.NURSE ---
Patient has rested throughout shift. 2L Nc inplace patient tolerating well sats above 90%. Edema noted in BLE 1+ in Lt and 3+ in Rt.
[2022-04-07 08:14] LABS: Basophils # 0.1 K/mm3 (0-0.2); Basophils % 1.3 % (0.1-2.0); Eosinophils # 0.1 K/mm3 (0.0-0.4); Eosinophils % 2.2 % (0.1-12.0); Hematocrit 26.2 % (42.0-52.0); Hemoglobin 8.2 g/dL (14.1-18.0); Lymphocytes # 1.1 K/mm3 (0.7-4.5); Lymphocytes % 22.1 % (10-50); Mean Corpuscular HGB Conc 31.2 g/dL (31.8-35.4); Mean Corpuscular Hemoglobin 28.7 pg (27.0-31.2); Mean Corpuscular Volume 92.1 fl (80-94); Mean Platelet Volume 8.9 fl (7.4-10.4); Monocytes # 0.5 K/mm3 (0.1-1.0); Monocytes % 10.5 % (1.7-9.3); Neutrophils # 3.2 K/mm3 (1.8-7.8); Neutrophils % 63.9 % (37.0-80.0); Platelet Count 200 K/mm3 (142-424); Red Blood Count 2.85 M/mm3 (4.60-6.20); Red Cell Distribution Width 19.3 % (11.5-17.5)
[2022-04-07 08:40] LABS: Chloride 100 mmol/L (98-107); Potassium 3.4 mmoL/L (3.5-5.1); Sodium 140 mmol/L (136-145)
[2022-04-07 08:42] LABS: Blood Urea Nitrogen 19 mg/dl (9-20); Creatinine Clearance Estimated 98 mL/min (50-200); Estimated Glomerular Filt Rate 95 ml/min (>60); GFR (African American) 115 ML/MIN (>60)
[2022-04-07 08:43] LABS: Anion Gap 10.4 mEq/L (5-15); Calcium 9.1 mg/dl (8.4-10.2); Carbon Dioxide 33 mmol/L (22.0-30.0); Glucose 91 mg/dl (74-100)
--- NOTE | 2022-04-07 09:17 | P.PN_ITS ---
Subjective Patient reports: no new complaints Narrative: Denies any clinical bleeding. Progress Note: A&P (1) Acute on chronic anemia Status: Acute (2) Ascites Status: Acute (3) Hyperkalemia Status: Acute (4) Acute kidney injury Status: Acute (5) Acute on chronic systolic congestive heart failure, NYHA class 4 Status: Acute (6) Cardiac murmur, unspecified Status: Acute (7) COPD (chronic obstructive pulmonary disease) Status: Chronic (8) Diabetes mellitus type 2 in obese Status: Chronic (9) Hx of CABG Problem details: 6 vessel (1998) Status: Chronic (10) Hyperlipidemia Status: Chronic (11) Hypertension Status: Chronic (12) Ischemic cardiomyopathy with implantable cardioverter-defibrillator (ICD) Status: Chronic (13) Abdominal aortic aneurysm (AAA) Problem details: 3.1 CM AUG 2021. Status: Chronic (14) Elevated troponin Status: Acute Assessment and Plan for All Diagnoses:: No evidence of ongoing blood loss with stable hemoglobin for about 48 hours. Anemia may be secondary to alternate cause other than GI blood loss even though he did have a Hemoccult positive stool but this could be positive being on dual antiplatelet therapy. His cirrhosis with liver failure and ascites of uncertain etiology may be playing a significant role. Gastroenterology input would be warranted and indicated. May need colonoscopy in the near future. Exam Vital signs and Labs for Last 24 Hours: Temp Pulse Resp BP Pulse Ox 97.9 F 86 17 114/57 L 94 L 04/07/22 07:56 04/07/22 07:56 04/07/22 07:56 04/07/22 07:56 04/07/22 07:56 Laboratory Results - last 24 hr 04/05/22 17:12: POC Glucose 136 H 04/06/22 09:53: Total Bilirubin 2.3 H, Direct Bilirubin 0.7 H, Conjugated Bilirubin 0.0, Indirect Bilirubin 1.6 H, Unconjugated Bilirubin 1.6 H, AST 224 H D, ALT 336 H*, Alkaline Phosphatase 82, Troponin I 0.11 H, Total Protein 7.1, Albumin 3.9 04/07/22 07:33: WBC 5.0, RBC 2.85 L, Hgb 8.2 L, Hct 26.2 L, MCV 92.1, MCH 28.7, MCHC 31.2 L, RDW 19.3 H, Plt Count 200, MPV 8.9, Neut % (Auto) 63.9, Lymph % (Auto) 22.1, [place] % (Auto) 10.5 H, Eos % (Auto) 2.2, Baso % (Auto) 1.3, Neut # (Auto) 3.2, Lymph # (Auto) 1.1, [place] # (Auto) 0.5, Eos # (Auto) 0.1, Baso # (Auto) 0.1 04/07/22 07:33: Sodium 140, Potassium 3.4 L, Chloride 100, Carbon Dioxide 33 H, Anion Gap 10.4, BUN 19 D, Creatinine 0.80, Estimated Creat Clear 98, Estimated GFR 95, Est GFR ( Amer) 115, Glucose 91, Calcium 9.1 I & O for Last 24 hours: Intake & Output 04/04/22 04/05/22 04/06/22 04/07/22 11:59 11:59 11:59 11:59 Intake Total 1220 / 1220 1230 / 1230 1966 / 1965 2459 / 2459 Output Total 1675 / 1675 4075 / 4075 3300 / 3300 1475 / 1475 Balance -455 / -455 -2845 / -2845 -1334 / -1334 984 / 984 Weight 236 lb 5.016 oz 220 lb 7.396 oz 230 lb 4.8 oz 233 lb 1.6 oz - *Routine Abdominal Exam Present: distended. Absent: tenderness
--- NOTE | 2022-04-07 12:05 | HMH.ACPN2 ---
Internal Medicine - PN: Subj *Date: 04/07/22 *Time: 20:13 Interval history: doing better but still leg swollen Exam Vital signs and Labs for Last 24 Hours: Temp Pulse Resp BP Pulse Ox 97.8 F 86 17 102/68 L 97 04/07/22 11:13 04/07/22 11:13 04/07/22 11:13 04/07/22 11:13 04/07/22 11:13 Laboratory Results - last 24 hr 04/07/22 07:33: WBC 5.0, RBC 2.85 L, Hgb 8.2 L, Hct 26.2 L, MCV 92.1, MCH 28.7, MCHC 31.2 L, RDW 19.3 H, Plt Count 200, MPV 8.9, Neut % (Auto) 63.9, Lymph % (Auto) 22.1, [place] % (Auto) 10.5 H, Eos % (Auto) 2.2, Baso % (Auto) 1.3, Neut # (Auto) 3.2, Lymph # (Auto) 1.1, [place] # (Auto) 0.5, Eos # (Auto) 0.1, Baso # (Auto) 0.1 04/07/22 07:33: Sodium 140, Potassium 3.4 L, Chloride 100, Carbon Dioxide 33 H, Anion Gap 10.4, BUN 19 D, Creatinine 0.80, Estimated Creat Clear 98, Estimated GFR 95, Est GFR ( Amer) 115, Glucose 91, Calcium 9.1 I & O for Last 24 hours: Intake & Output 04/05/22 04/06/22 04/07/22 04/08/22 11:59 11:59 11:59 11:59 Intake Total 1230 / 1230 1966 / 1965 2459 / 2459 Output Total 4075 / 4075 3300 / 3300 1475 / 1475 Balance -2845 / -2845 -1334 / -1334 984 / 984 Weight 220 lb 7.396 oz 230 lb 4.8 oz 233 lb 1.6 oz - Constitutional no acute distress - *Routine HEENT Exam Head: Present: normocephalic Eye: Present: EOMI, PERRL ENT: Present: mucous membranes dry - *Routine Neck Exam Absent: JVD - *Routine Respiratory Exam Present: decreased breath sounds - *Routine Cardiovascular Exam Present: RRR, murmur, S4 - *Routine Abdominal Exam Present: soft - *Routine Extremities Exam Present: edema Comments: rt )lt - *Routine Skin Exam Present: intact - *Routine Neurological Exam Present: alert, CN II-XII intact - Routine Psychiatric Exam Present: normal affect Assessment and Plan (1) Acute on chronic anemia Status: Acute Category: Medical Code(s): D64.9 - Anemia, unspecified (2) Ascites Status: Acute Category: Medical Code(s): R18.8 - Other ascites (3) Hyperkalemia Status: Acute Category: Medical Code(s): E87.5 - Hyperkalemia (4) Acute kidney injury Status: Acute Category: Medical Code(s): N17.9 - Acute kidney failure, unspecified (5) Acute on chronic systolic congestive heart failure, NYHA class 4 Status: Acute Category: Medical Code(s): I50.23 - Acute on chronic systolic (congestive) heart failure (6) Cardiac murmur, unspecified Status: Acute Category: Medical Code(s): R01.1 - Cardiac murmur, unspecified (7) COPD (chronic obstructive pulmonary disease) Status: Chronic Qualifiers: COPD type: unspecified COPD Qualified Code(s): J44.9 - Chronic obstructive pulmonary disease, unspecified Category: Medical Code(s): J44.9 - Chronic obstructive pulmonary disease, unspecified (8) Diabetes mellitus type 2 in obese Status: Chronic Category: Medical Code(s): E11.69 - Type 2 diabetes mellitus with other specified complication; E66.9 - Obesity, unspecified (9) Hx of CABG Problem details: 6 vessel (1998) Status: Chronic Category: Surgical Code(s): Z95.1 - Presence of aortocoronary bypass graft (10) Hyperlipidemia Status: Chronic Qualifiers: Hyperlipidemia type: mixed hyperlipidemia Qualified Code(s): E78.2 - Mixed hyperlipidemia Category: Medical Code(s): E78.5 - Hyperlipidemia, unspecified (11) Hypertension Status: Chronic Qualifiers: Hypertension type: primary hypertension Qualified Code(s): I10 - Essential (primary) hypertension Category: Medical Code(s): I10 - Essential (primary) hypertension (12) Ischemic cardiomyopathy with implantable cardioverter-defibrillator (ICD) Status: Chronic Category: Medical Code(s): I25.5 - Ischemic cardiomyopathy; Z95.810 - Presence of automatic (implantable) cardiac defibrillator (13) Abdominal aortic aneurysm (AAA) Problem details: 3.1 CM AUG 2021. Status: Chronic Qualifiers: Presenc
--- NOTE | 2022-04-07 18:07 | PC.NURSE ---
Pt has rested majority of this shift. +4 pitting edema noted to RLE and +3 pitting edema noted to LLE. Scattered coarse crackles noted t/o all lung sims. No c/o weakness, SOB or pain this shift. No other acute changes, will monitor.
[2022-04-08] VITALS (20 sets, daily range): BP systolic 95–137; BP diastolic 52–84; PULSE 59–97; RESP 16–22; TEMP 36.3–36.8; O2SAT 90–98; BMI 32.3
[2022-04-08 06:49] LABS: Chloride 100 mmol/L (98-107); Potassium 3.3 mmoL/L (3.5-5.1); Sodium 140 mmol/L (136-145)
[2022-04-08 06:52] LABS: Blood Urea Nitrogen 15 mg/dl (9-20); Creatinine Clearance Estimated 101 mL/min (50-200); Estimated Glomerular Filt Rate 83 ml/min (>60); GFR (African American) 100 ML/MIN (>60)
[2022-04-08 06:53] LABS: Anion Gap 6.3 mEq/L (5-15); Calcium 8.5 mg/dl (8.4-10.2); Carbon Dioxide 37 mmol/L (22.0-30.0); Glucose 180 mg/dl (74-100)
[2022-04-08 06:58] LABS: Basophils % 0.6 % (0.1-2.0); Eosinophils # 0.1 K/mm3 (0.0-0.4); Eosinophils % 2.2 % (0.1-12.0); Hematocrit 25.5 % (42.0-52.0); Hemoglobin 7.8 g/dL (14.1-18.0); Lymphocytes % 22.8 % (10-50); Mean Corpuscular HGB Conc 30.7 g/dL (31.8-35.4); Mean Corpuscular Hemoglobin 28.9 pg (27.0-31.2); Mean Corpuscular Volume 94.2 fl (80-94); Mean Platelet Volume 8.6 fl (7.4-10.4); Monocytes # 0.5 K/mm3 (0.1-1.0); Monocytes % 11.3 % (1.7-9.3); Neutrophils # 2.9 K/mm3 (1.8-7.8); Neutrophils % 63.1 % (37.0-80.0); Platelet Count 220 K/mm3 (142-424); Red Blood Count 2.71 M/mm3 (4.60-6.20); Red Cell Distribution Width 19.6 % (11.5-17.5); White Blood Count 4.5 K/mm3 (4.8-10.8)
--- NOTE | 2022-04-08 09:56 | HMH.ACPN2 ---
Internal Medicine - PN: Subj *Date: 04/08/22 *Time: 08:15 Exam Vital signs and Labs for Last 24 Hours: Temp Pulse Resp BP Pulse Ox 98.2 F 59 L 16 95/52 L 94 L 04/08/22 04:00 04/08/22 08:00 04/08/22 04:00 04/08/22 04:00 04/08/22 08:00 Laboratory Results - last 24 hr 04/08/22 05:51: WBC 4.5 L, RBC 2.71 L, Hgb 7.8 L, Hct 25.5 L, MCV 94.2 H, MCH 28.9, MCHC 30.7 L, RDW 19.6 H, Plt Count 220, MPV 8.6, Neut % (Auto) 63.1, Lymph % (Auto) 22.8, [place] % (Auto) 11.3 H, Eos % (Auto) 2.2, Baso % (Auto) 0.6, Neut # (Auto) 2.9, Lymph # (Auto) 1.0, [place] # (Auto) 0.5, Eos # (Auto) 0.1, Baso # (Auto) 0.0 04/08/22 05:51: Sodium 140, Potassium 3.3 L, Chloride 100, Carbon Dioxide 37 H, Anion Gap 6.3, BUN 15, Creatinine 0.90, Estimated Creat Clear 101, Estimated GFR 83, Est GFR ( Amer) 100, Glucose 180 H D, Calcium 8.5 I & O for Last 24 hours: Intake & Output 04/05/22 04/06/22 04/07/22 04/08/22 11:59 11:59 11:59 11:59 Intake Total 1230 / 1230 1965 / 1965 2459 / 2459 1320 / 1320 Output Total 4075 / 4075 3300 / 3300 1475 / 1475 3900 / 3900 Balance -2845 / -2845 -1334 / -1334 984 / 984 -2580 / -2580 Weight 220 lb 7.396 oz 230 lb 4.8 oz 233 lb 1.6 oz 239 lb 1.6 oz - Constitutional no acute distress - *Routine HEENT Exam Head: Present: normocephalic Eye: Present: PERRL ENT: Present: mucous membranes moist - *Routine Neck Exam Present: supple. Absent: lymphadenopathy - *Routine Respiratory Exam Present: CTA bilaterally - *Routine Cardiovascular Exam Present: RRR - *Routine Abdominal Exam Present: soft, normoactive bowel sounds. Absent: tenderness - *Routine Extremities Exam Absent: cyanosis, clubbing, edema - *Routine Skin Exam Present: warm. Absent: rash - *Routine Neurological Exam Present: alert, oriented X3 Assessment and Plan (1) Acute on chronic anemia Status: Acute Category: Medical Code(s): D64.9 - Anemia, unspecified (2) Ascites Status: Acute Category: Medical Code(s): R18.8 - Other ascites (3) Hyperkalemia Status: Acute Category: Medical Code(s): E87.5 - Hyperkalemia (4) Acute kidney injury Status: Acute Category: Medical Code(s): N17.9 - Acute kidney failure, unspecified (5) Acute on chronic systolic congestive heart failure, NYHA class 4 Status: Acute Category: Medical Code(s): I50.23 - Acute on chronic systolic (congestive) heart failure (6) Cardiac murmur, unspecified Status: Acute Category: Medical Code(s): R01.1 - Cardiac murmur, unspecified (7) COPD (chronic obstructive pulmonary disease) Status: Chronic Qualifiers: COPD type: unspecified COPD Qualified Code(s): J44.9 - Chronic obstructive pulmonary disease, unspecified Category: Medical Code(s): J44.9 - Chronic obstructive pulmonary disease, unspecified (8) Diabetes mellitus type 2 in obese Status: Chronic Category: Medical Code(s): E11.69 - Type 2 diabetes mellitus with other specified complication; E66.9 - Obesity, unspecified (9) Hx of CABG Problem details: 6 vessel (1998) Status: Chronic Category: Surgical Code(s): Z95.1 - Presence of aortocoronary bypass graft (10) Hyperlipidemia Status: Chronic Qualifiers: Hyperlipidemia type: mixed hyperlipidemia Qualified Code(s): E78.2 - Mixed hyperlipidemia Category: Medical Code(s): E78.5 - Hyperlipidemia, unspecified (11) Hypertension Status: Chronic Qualifiers: Hypertension type: primary hypertension Qualified Code(s): I10 - Essential (primary) hypertension Category: Medical Code(s): I10 - Essential (primary) hypertension (12) Ischemic cardiomyopathy with implantable cardioverter-defibrillator (ICD) Status: Chronic Category: Medical Code(s): I25.5 - Ischemic cardiomyopathy; Z95.810 - Presence of automatic (implantable) cardiac defibrillator (13) Abdominal aortic aneurysm (AAA) Problem details: 3.1 CM AUG 2021. Status: Chronic Qualifiers: Presenc
--- NOTE | 2022-04-08 15:43 | P.PN_ITS ---
Subjective Narrative: Patient without any significant complaints. He does state that he may be constipated. Has not moved his bowels. He did show some slight decrease in hemoglobin without clinical bleeding and had received a unit of packed red blood cells. Progress Note: A&P (1) Acute on chronic anemia Status: Acute Assessment and plan: Assess hemoglobin for stability. No need for inpatient colonoscopy at this time. However, if he continues to show limited response to transfusion this may be necessary. Gastroenterology evaluation and consultation would be warranted given his ascites with cirrhosis. (2) Ascites Status: Acute (3) Hyperkalemia Status: Acute (4) Acute kidney injury Status: Acute (5) Acute on chronic systolic congestive heart failure, NYHA class 4 Status: Acute (6) Cardiac murmur, unspecified Status: Acute (7) COPD (chronic obstructive pulmonary disease) Status: Chronic (8) Diabetes mellitus type 2 in obese Status: Chronic (9) Hx of CABG Problem details: 6 vessel (1998) Status: Chronic (10) Hyperlipidemia Status: Chronic (11) Hypertension Status: Chronic (12) Ischemic cardiomyopathy with implantable cardioverter-defibrillator (ICD) Status: Chronic (13) Abdominal aortic aneurysm (AAA) Problem details: 3.1 CM AUG 2021. Status: Chronic (14) Elevated troponin Status: Acute (15) Cirrhosis of liver Status: Acute Exam Vital signs and Labs for Last 24 Hours: Temp Pulse Resp BP Pulse Ox 97.8 F 87 20 126/61 98 04/08/22 14:43 04/08/22 14:43 04/08/22 14:43 04/08/22 14:43 04/08/22 14:43 Laboratory Results - last 24 hr 04/08/22 05:51: WBC 4.5 L, RBC 2.71 L, Hgb 7.8 L, Hct 25.5 L, MCV 94.2 H, MCH 28.9, MCHC 30.7 L, RDW 19.6 H, Plt Count 220, MPV 8.6, Neut % (Auto) 63.1, Lymph % (Auto) 22.8, [place] % (Auto) 11.3 H, Eos % (Auto) 2.2, Baso % (Auto) 0.6, Neut # (Auto) 2.9, Lymph # (Auto) 1.0, [place] # (Auto) 0.5, Eos # (Auto) 0.1, Baso # (Auto) 0.0 04/08/22 05:51: Sodium 140, Potassium 3.3 L, Chloride 100, Carbon Dioxide 37 H, Anion Gap 6.3, BUN 15, Creatinine 0.90, Estimated Creat Clear 101, Estimated GFR 83, Est GFR ( Amer) 100, Glucose 180 H D, Calcium 8.5 04/08/22 10:15: Blood Type O Positive, Antibody Screen Negative, Crossmatch ([facility]) See Detail I & O for Last 24 hours: Intake & Output 04/06/22 04/07/22 04/08/22 04/09/22 11:59 11:59 11:59 11:59 Intake Total 1965 / 1965 2459 / 2459 1320 / 1320 1032 / 1032 Output Total 3300 / 3300 1475 / 1475 6590 / 6590 Balance -1334 / -1334 984 / 984 -5270 / -5270 1032 / 1032 Weight 230 lb 4.8 oz 233 lb 1.6 oz 239 lb 1.6 oz - Constitutional no acute distress
--- NOTE | 2022-04-08 16:23 | PC.NURSE ---
pt has been up to the side of the bed for most of the shift. pt has had no complaints of pain or shortness of breath, he did state that he has yet to have a bm. pt has been receiving stool softeners. an order has been entered for pt to get miralax daily. lung sounds are clear, bowel sounds are active. pt still does have slight pitting edema to dayan child areas. nad noted. will continue to monitor. pt did receive 1 unit of PRBC's this shift, and tolerated well.
[2022-04-08 16:29] LABS: Hematocrit 29.5 % (42.0-52.0)
[2022-04-09] VITALS (7 sets, daily range): BP systolic 106–141; BP diastolic 61–69; PULSE 76–91; RESP 16–20; TEMP 36.1–36.8; O2SAT 94–97; BMI 31.8
[2022-04-09 06:14] LABS: Basophils % 0.5 % (0.1-2.0); Eosinophils # 0.1 K/mm3 (0.0-0.4); Eosinophils % 2.6 % (0.1-12.0); Hematocrit 27.3 % (42.0-52.0); Hemoglobin 8.6 g/dL (14.1-18.0); Lymphocytes # 1.2 K/mm3 (0.7-4.5); Lymphocytes % 21.6 % (10-50); Mean Corpuscular HGB Conc 31.6 g/dL (31.8-35.4); Mean Corpuscular Hemoglobin 29.1 pg (27.0-31.2); Mean Corpuscular Volume 92.1 fl (80-94); Mean Platelet Volume 8.3 fl (7.4-10.4); Monocytes # 0.5 K/mm3 (0.1-1.0); Monocytes % 8.2 % (1.7-9.3); Neutrophils # 3.7 K/mm3 (1.8-7.8); Neutrophils % 67.1 % (37.0-80.0); Platelet Count 204 K/mm3 (142-424); Red Blood Count 2.96 M/mm3 (4.60-6.20); White Blood Count 5.5 K/mm3 (4.8-10.8)
[2022-04-09 06:42] LABS: Chloride 95 mmol/L (98-107)
[2022-04-09 06:43] LABS: Sodium 137 mmol/L (136-145)
[2022-04-09 06:45] LABS: Blood Urea Nitrogen 12 mg/dl (9-20); Creatinine Clearance Estimated 99 mL/min (50-200); Estimated Glomerular Filt Rate 111 ml/min (>60); GFR (African American) 134 ML/MIN (>60)
[2022-04-09 06:46] LABS: Calcium 8.5 mg/dl (8.4-10.2); Carbon Dioxide 37 mmol/L (22.0-30.0); Glucose 67 mg/dl (74-100)
--- NOTE | 2022-04-09 07:36 | HMH.GSPN ---
Subjective Patient reports: no new complaints Narrative: Patient received an additional unit of PRBC yesterday for Hgb of 7.8 with good response to 9.0. He was started on Miralax, has not had a bowel movement. No clinical bleeding but no bowel movement. Hgb today 8.6. Progress Note: A&P (1) Acute on chronic anemia Status: Acute Assessment and plan: May need colonoscopy in near future however anemia may be due to etiology other than GI blood loss. (2) Ascites Status: Acute Assessment and plan: Needs GI evaluation for liver failure, cirrhosis, ascites. (3) Hyperkalemia Status: Acute (4) Acute kidney injury Status: Acute (5) Acute on chronic systolic congestive heart failure, NYHA class 4 Status: Acute (6) Cardiac murmur, unspecified Status: Acute (7) COPD (chronic obstructive pulmonary disease) Status: Chronic (8) Diabetes mellitus type 2 in obese Status: Chronic (9) Hx of CABG Problem details: 6 vessel (1998) Status: Chronic (10) Hyperlipidemia Status: Chronic (11) Hypertension Status: Chronic (12) Ischemic cardiomyopathy with implantable cardioverter-defibrillator (ICD) Status: Chronic (13) Abdominal aortic aneurysm (AAA) Problem details: 3.1 CM AUG 2021. Status: Chronic (14) Elevated troponin Status: Acute (15) Cirrhosis of liver Status: Acute Exam Vital signs and Labs for Last 24 Hours: Temp Pulse Resp BP Pulse Ox 97.7 F 81 18 106/67 L 96 04/09/22 03:55 04/09/22 06:09 04/09/22 03:55 04/09/22 03:55 04/09/22 06:09 Laboratory Results - last 24 hr 04/08/22 10:15: Blood Type O Positive, Antibody Screen Negative, Crossmatch ([facility]) See Detail 04/08/22 16:14: Hgb 9.0 L D, Hct 29.5 L 04/09/22 05:43: WBC 5.5, RBC 2.96 L, Hgb 8.6 L, Hct 27.3 L, MCV 92.1, MCH 29.1, MCHC 31.6 L, RDW 19.0 H, Plt Count 204, MPV 8.3, Neut % (Auto) 67.1, Lymph % (Auto) 21.6, [place] % (Auto) 8.2, Eos % (Auto) 2.6, Baso % (Auto) 0.5, Neut # (Auto) 3.7, Lymph # (Auto) 1.2, [place] # (Auto) 0.5, Eos # (Auto) 0.1, Baso # (Auto) 0.0 04/09/22 05:43: Sodium 137, Potassium 3.0 L, Chloride 95 L, Carbon Dioxide 37 H, Anion Gap 8.0, BUN 12, Creatinine 0.70 D, Estimated Creat Clear 99, Estimated GFR 111, Est GFR ( Amer) 134 D, Glucose 67 L D, Calcium 8.5 I & O for Last 24 hours: Intake & Output 04/06/22 04/07/22 04/08/22 04/09/22 11:59 11:59 11:59 11:59 Intake Total 1965 / 1965 2459 / 2459 1320 / 1320 1752 / 1752 Output Total 3300 / 3300 1475 / 1475 6590 / 6590 2320 / 2320 Balance -1334 / -1334 984 / 984 -5270 / -5270 -568 / -568 Weight 230 lb 4.8 oz 233 lb 1.6 oz 239 lb 1.6 oz 235 lb 6 oz - Constitutional no acute distress - *Routine Abdominal Exam Present: soft
--- NOTE | 2022-04-09 09:32 | HMH.DCSUM ---
General - General Admission date:: 04/04/22 Discharge date: 04/09/22 HPI HPI: 72-year-old male patient presenting to the emergency department with shortness of breath and increasing bilateral lower extremity edema. He reports he has been increasingly short of breath with increased bilateral lower extremity swelling, denies chest pain but does admit a STEMI with 2 stents placed at [facility] 02/21/2022. He is also has a known ejection fraction of 20 to 25% with ischemic cardiomyopathy he denies fever/chills/body aches or nausea/vomiting/diarrhea. He admits tobacco 1 pack/day for 60 years, alcohol fifth of bourbon on the weekend for years , but he reports alcohol cessation last year. Hemoglobin/hematocrit 6.2/20.3 he did receive 2 units packed red blood cells yesterday this morning his hemoglobin was 6.9 and we have reordered 2 units packed red blood cells In the ED BUN 48, creatinine 1.6, this morning after blood and IV fluids BUN 50 creatinine 1.4 Potassium was 5.8 in the ER and he received calcium/insulin/D50 IV, this morning potassium 4.5 BNP was 2730 Chest x-ray normal General surgery consulted and cardiology following Hospital Course Hospital Course: 72-year-old male patient presenting to the emergency department with shortness of breath and increasing bilateral lower extremity edema. He reports he has been increasingly short of breath with increased bilateral lower extremity swelling, denies chest pain but does admit a STEMI with 2 stents placed at [facility] 02/21/2022. He is also has a known ejection fraction of 20 to 25% with ischemic cardiomyopathy he denies fever/chills/body aches or nausea/vomiting/diarrhea. He admits tobacco 1 pack/day for 60 years, alcohol fifth of bourbon on the weekend for years , but he reports alcohol cessation last year. Hemoglobin/hematocrit 6.2/20.3 he did receive 2 units packed red blood cells yesterday this morning his hemoglobin was 6.9 and we have reordered 2 units packed red blood cells In the ED BUN 48, creatinine 1.6, this morning after blood and IV fluids BUN 50 creatinine 1.4 Potassium was 5.8 in the ER and he received calcium/insulin/D50 IV, this morning potassium 4.5 BNP was 2730 Chest x-ray normal General surgery consulted and cardiology following 04/05/22 EGD: Findings:: Gastroesophageal junction at 47 cm from the incisors Mild gastropathy No identifiable source of blood loss on upper endoscopy or stigmata of recent bleeding Recommendations:: Patient has shown suboptimal response to transfusion. I will obtain a CT angiogram of the abdomen and pelvis. Continue to transfuse as needed and monitor hemoglobin. Cardiology has seen and recommends: 1. Acute on chronic anemia, exacerbated by dual antiplatelet therapy (aspirin and Brilinta) after stenting of saphenous vein graft arteries on 02/21/2022. DAPT discontinued. No complaints of chest pain. Patient had received a total of 4 units of blood with hemoglobin 8.3 this morning. No identifiable source for anemia/GI bleed on EGD this AM. 2. Elevated troponin, likely related to demand ischemia from anemia and known ischemic cardiomyopathy/CHF. No plans for cath at this time. 3. Hyperkalemia, resolved. 3. Acute kidney injury, improving. 4. Acute on chronic systolic congestive heart failure, clinically improving with IV Lasix and oral spironolactone. 5. Diabetes mellitus, per PCP 6. CAD with recent stenting of the saphenous vein grafts, 02/22/2020, aspirin and Brilinta discontinued at this time due to anemia/GI bleed. 7. AICD in situ with Ischemic cardiomyopathy, chronic with ejection fraction of 20-25%. Continue lisinopril, carvedilol, Jardiance, Lasix and spironolactone. 8. COPD with supplemental oxygen in place. 9. HTN, now with low BP Will reduce carvedilol and lisinopril further and follow. 10. HLD, on statin with LDL 38. 11. Elevated LFT's, likely due to liver congestio
--- NOTE | 2022-04-09 12:36 | PC.NURSE ---
working on getting outpatient testing ordered for discharge.
--- NOTE | 2022-04-09 12:40 | PC.NURSE ---
patient discharge in at this time attempting to get follow up tag red blood cell study scheduled. and ensuring proper follow up of labs and apts.
--- NOTE | 2022-04-09 13:04 | PC.NURSE ---
Left voicemail with Dr. Bray office for followup appt after 4 attempts of trying to get ahold of them to schedule an appt for pt.
--- NOTE | 2022-04-09 13:21 | PC.NURSE ---
Patients tagged red blood cell study is 04/18 at 12:30. He is to have blood work done on 04/12/2022 and 04/15/2022 to monitor his H&H levels. Outpatient order forms have been given to patient and faxed to outpatient registration.
--- NOTE | 2022-04-12 16:05 | CARE MANAGER ---
Called and spoke with patient regarding post discharge status. Patient states that he has been to have labs done today. He is feeling ok and plans to attend his scheduled appointments later this month. No needs at this time.
== END 2022-04-09 13:34 | disposition home or self-care (01) | DRG 811 ==
LOC: ER 11:56 → 2ND 11:56
PROVIDERS: Family Medicine; Nurse Practitioner Family; Physician Assistant; Surgery; Admitting Provider Emergency Medicine; Emergency Provider Emergency Medicine; PCP Physician Assistant; Visit Provider Emergency Medicine
PROC: 0DJ08ZZ Inspection of Upper Intestinal Tract, Via Natural or Artificial Opening Endoscopic (ICD-10-PCS; CPT 43235; principal; 2022-04-05 12:00)
DX: D64.89 Other specified anemias (principal); I50.23 Acute on chronic systolic (congestive) heart failure; N17.9 Acute kidney failure, unspecified; I24.8 Other forms of acute ischemic heart disease; I11.0 Hypertensive heart disease with heart failure; I25.5 Ischemic cardiomyopathy; E87.5 Hyperkalemia; I25.10 Atherosclerotic heart disease of native coronary artery without angina pectoris; E11.9 Type 2 diabetes mellitus without complications; E78.5 Hyperlipidemia, unspecified; I10 Essential (primary) hypertension; F17.210 Nicotine dependence, cigarettes, uncomplicated; F17.290 Nicotine dependence, other tobacco product, uncomplicated; Z96.653 Presence of artificial knee joint, bilateral; G47.33 Obstructive sleep apnea (adult) (pediatric); I71.4 Abdominal aortic aneurysm, without rupture; Z79.84 Long term (current) use of oral hypoglycemic drugs; Z95.5 Presence of coronary angioplasty implant and graft; Z95.810 Presence of automatic (implantable) cardiac defibrillator; J44.9 Chronic obstructive pulmonary disease, unspecified; Z95.1 Presence of aortocoronary bypass graft; K74.60 Unspecified cirrhosis of liver; T39.015A Adverse effect of aspirin, initial encounter; T45.525A Adverse effect of antithrombotic drugs, initial encounter
CPT/HCPCS: 43235; 36415; 71045; 71250; 74174; 74176; 80048; 80053; 80076; 82140; 82272; 82962; 83880; 84484; 85014; 85018; 85025; 85610; 86850; 93005; 93308; 94640; 94761; 96375; 99285; C9803; G0328; G0378; P9016; Q9967; U0003; U0005

== ENCOUNTER → 2022-04-12 07:37 | Outpatient (CLI) | payer MEDICARE, OTHER, SELFPAY ==
[2022-04-12 08:27] LABS: Hematocrit 28.6 % (42.0-52.0); Hemoglobin 8.8 g/dL (14.1-18.0)
== END ==
PROVIDERS: PCP Emergency Medicine; Visit Provider Nurse Practitioner Family
DX: D64.9 Anemia, unspecified (principal)
CPT/HCPCS: 36415; 85014; 85018

== ENCOUNTER → 2022-04-15 11:15 | Outpatient (CLI) | payer MEDICARE, OTHER, SELFPAY ==
[2022-04-15 12:09] LABS: Hematocrit 26.1 % (42.0-52.0); Hemoglobin 8.1 g/dL (14.1-18.0)
== END ==
PROVIDERS: PCP Physician Assistant; Visit Provider Nurse Practitioner Family
DX: D64.9 Anemia, unspecified (principal)
CPT/HCPCS: 36415; 85014; 85018

== ENCOUNTER 2022-04-19 06:25 | Day surgery (SDC) | payer MEDICARE, OTHER, SELFPAY ==
[2022-04-16 14:49] VITALS: BMI 30.7
[2022-04-19] VITALS (7 sets, daily range): BP systolic 102–128; BP diastolic 61–81; PULSE 4–114; RESP 18; TEMP 36.1–36.8; O2SAT 94–100
[2022-04-19 07:05] LABS: POC Glucose,Bedside 131 (70-110)
--- NOTE | 2022-04-19 07:07 | HMH.ANESCL ---
[facility] Anesthesia Checklist - Patient Identification Patient Identification: Arm Band - Structural Data Admitted From: Home Planned Operative Procedure/s: Colonoscopy Consent for Planned Operative Procedure(s) Verified: Yes - NPO Status Verified Time NPO: 03:30 (Prep) - Respiratory Assessment Bilateral Throughout Breath Sounds: Audible Wheezes - Airway Assessment TMJ Mobility Assessed: Yes Dentition: Edentulous - Neurological Assessment Level of Consciousness: Awake Hx Seizures: No Numbness or tingling in extremities: No - Anesthesia Plan Anesthesia Risk discussed: Yes Anesthesia Plan: Verified ASA Class: IV Anesthesia Type: MAC [facility] History I have reviewed the patient's past medical history: Yes Medical History: Reports:: Aneurysm (AAA), Congestive Heart Failure, Chronic Obstructive Pulmonary Disease (COPD), Congenital Heart Disease, Coronary Artery Disease, Diabetes Mellitus Type 2, Hyperlipidemia, Hypertension, Myocardial Infarction, Renal Insufficiency (NIMO) Denies:: Cancer, Diabetes Mellitus Type 1, Internal Pacemaker, MRSA, Seizures *Have you ever received a pneumonia vaccine?: Yes *Have you received a flu vaccine this season?: Yes Other Medical History: Reports: Anemia, Arthritis Anesthesia experience/problems:: None Other Surgeries: Yes: No Previous Surgery, Cardiac Catheterization, Colonoscopy, Coronary Stent, Open Heart Surgery. No: Pacemaker Amputation: No Fractures: No - *Social History Smoking Status: Current every day smoker Tobacco Type: cigarettes # Packs/Day (cigarettes): 1 Alcohol Intake: never Substance Use Type: denies use *Occupational Status:: retired Housing: house Household Members: children *Travel in the last 8 weeks: None Family Hx:: No significant family history
--- NOTE | 2022-04-19 07:16 | HMH.GSHP ---
HPI HPI: Patient presents for colonoscopy. He is a 72-year-old male smoker from [facility] with history of coronary artery disease and congestive heart failure (ejection fraction 20%) and ischemic cardiomyopathy. He had prior AICD placement. On home oxygen. He has prior history of [place] in 1998 and subsequent CABGx6. He was admitted 02/18/22 to this facility with abdominal pain and was noted to have a non-STEMI. He underwent left heart catheterization with STEPHEN placement on 02/21/2022 on dual antiplatelet therapy. He presented to the emergency department (04/03/22) with symptoms of leg swelling and shortness of air. Evaluation in the emergency department revealed hemoglobin of 6.2. Recent hemoglobin was in the mid 9 range. Hemoglobin in August 2021 of 13. He was admitted for inpatient management. Patient was transfused 2 units packed red blood cells for hemoglobin of 6.2 with posttransfusion hemoglobin of 6.8. BUN is 50 with previous normal BUN. Surgical consultation was ordered as an inpatient. Patient has had some mild mid abdominal discomfort. Denies severe pain. Denies prior history of known ulcers. He has had some intermittent self-limited black stools. He underwent EGD as an inpatient. This revealed no source of upper GI bleeding. He was ultimately discharged and scheduled for outpatient colonoscopy. [facility] History Medical History: Reports:: Aneurysm (AAA), Congestive Heart Failure, Chronic Obstructive Pulmonary Disease (COPD), Congenital Heart Disease, Coronary Artery Disease, Diabetes Mellitus Type 2, Hyperlipidemia, Hypertension, Myocardial Infarction, Renal Insufficiency (NIMO) Denies:: Cancer, Diabetes Mellitus Type 1, Internal Pacemaker, MRSA, Seizures *Have you ever received a pneumonia vaccine?: Yes *Have you received a flu vaccine this season?: Yes Other Medical History: Reports: Anemia, Arthritis Anesthesia experience/problems:: None Other Surgeries: Yes: No Previous Surgery, Cardiac Catheterization, Colonoscopy, Coronary Stent, Open Heart Surgery. No: Pacemaker Amputation: No Fractures: No - *Social History Smoking Status: Current every day smoker Tobacco Type: cigarettes # Packs/Day (cigarettes): 1 Alcohol Intake: never Substance Use Type: denies use *Occupational Status:: retired Housing: house Household Members: children *Travel in the last 8 weeks: None Family Hx:: No significant family history Review of Systems - Review of Systems Review of systems:: pertinent systems reviewed and negative unless documented below Meds Home Medications Medication Instructions Recorded Confirmed Type Albuterol Sulfate [Albuterol 2 puffs IH QIDP PRN 08/26/21 04/19/22 History Sulfate Hfa] Buspirone HCl [Buspar 10mg 20 mg PO TID 08/26/21 04/19/22 History tablet] Duloxetine HCl 120 mg PO DAILY 08/26/21 04/19/22 History Empagliflozin [Jardiance] 10 mg PO DAILY 08/26/21 04/19/22 History Famotidine [Heartburn Prevention] 20 mg PO HS 08/26/21 04/19/22 History Gabapentin 800 mg PO HS 08/26/21 04/19/22 History Metformin HCl [Metformin 1000mg 1,000 mg PO BIDWMEAL 08/26/21 04/19/22 History Tablets] Pantoprazole Sodium 20 mg PO DAILY 08/26/21 04/19/22 History Prazosin HCl 15 mg PO HS 08/26/21 04/19/22 History Sennosides/Docusate Sodium 1 each PO BID 08/26/21 04/19/22 History [Docusate Sodium-Sennosides Tab] Tramadol HCl [Tramadol 50mg 100 mg PO DAILYP PRN 08/26/21 04/19/22 History Tab] Trazodone HCl 200 mg PO HS 08/26/21 04/19/22 History glipiZIDE [Glipizide] 10 mg PO BID 08/26/21 04/19/22 History aspirin 81 mg tablet,delayed 81 mg PO DAILY #30 tab 09/11/21 04/19/22 Rx release Atorvastatin Calcium [Lipitor 40mg 40 mg PO DAILY 02/19/22 04/19/22 History Tab] Spironolactone [Spironolactone 25 mg PO DAILY 02/19/22 04/19/22 History 25mg Tablet] carvediloL [Carvedilol 12.5mg Tab] 12.5 mg PO BID 02/19/22 04/19/22 History lisinopriL [Lisinopril] 40 mg PO DAILY 02/19/22 04/19/22 History
--- NOTE | 2022-04-19 08:13 | HMH.SCOPE ---
- Procedure: Date: 04/19/22 Patient Date of :: 1950 Procedure Performed:: Total colonoscopy with polypectomy using snare and biopsy Indications:: Patient presents for colonoscopy. He is a 72-year-old male smoker from [facility] with history of coronary artery disease and congestive heart failure (ejection fraction 20%) and ischemic cardiomyopathy. He had prior AICD placement. On home oxygen. He has prior history of [place] in 1998 and subsequent CABGx6. He was admitted 02/18/22 to this facility with abdominal pain and was noted to have a non-STEMI. He underwent left heart catheterization with STEPHEN placement on 02/21/2022 on dual antiplatelet therapy. He presented to the emergency department (04/03/22) with symptoms of leg swelling and shortness of air. Evaluation in the emergency department revealed hemoglobin of 6.2. Recent hemoglobin was in the mid 9 range. Hemoglobin in August 2021 of 13. He was admitted for inpatient management. Patient was transfused 2 units packed red blood cells for hemoglobin of 6.2 with posttransfusion hemoglobin of 6.8. BUN is 50 with previous normal BUN. Surgical consultation was ordered as an inpatient. Patient has had some mild mid abdominal discomfort. Denies severe pain. Denies prior history of known ulcers. He has had some intermittent self-limited black stools. He underwent EGD as an inpatient. This revealed no source of upper GI bleeding. He was ultimately discharged and scheduled for outpatient colonoscopy. Performing Provider:: Patrice Drew MD Referring Provider:: Khanh Carlos MD Sedation:: MAC sedation Procedure:: Patient was taken to endoscopy procedure room. He was positioned in lateral decubitus position. Adequate intravenous sedation was achieved. Variable stiffness Olympus colonoscope was inserted via the anus. It was advanced to the cecum. He did have some floppiness and redundancy of the sigmoid colon. Initially colonic preparation was fair as there was some particulate stool but this was irrigated and suction which allowed for adequate visualization. Ileocecal valve and appendiceal orifice were clearly identified. Colonoscope was slowly withdrawn through the colon with careful surveillance. At the hepatic flexure there is a small adenomatous appearing polyp removed with cutting snare. There was some minor mucosal pigmentation in the periappendiceal location of the cecum which was biopsied. The proximal sigmoid colon there was a polyp removed with cutting snare. Mid sigmoid there were several small polyps removed with biopsy forceps. The distal sigmoid there was a polyp removed with cutting snare. Hemoclip was deployed for assurance of hemostasis. Rectosigmoid region there were numerous hyperplastic appearing polyps mostly removed with biopsy forceps. Total of 10. Rectal polyp he had 3 hyperplastic appearing polyps 1 removed with snare and 2 removed with biopsy forceps. Retroflexion revealed no evidence of any pathologic internal hemorrhoids. Colonoscope was withdrawn. Findings:: Numerous small polyps as noted above. Most of these appeared hyperplastic Some pigmentation of the periappendiceal mucosa within the cecum which was biopsied Recommendations:: No obvious source to explain his anemia on colonoscopy. Follow-up colonoscopy pending pathology. If cecal biopsy is adenomatous may require referral for consideration of resection although this seems quite unlikely. Complications:: None immediately apparent Estimated blood obtained (mL): 3
== END 2022-04-19 09:11 | disposition home or self-care (01) ==
LOC: OUTP 06:28
PROVIDERS: PCP Physician Assistant; Visit Provider Surgery
PROC: 0DJD8ZZ Inspection of Lower Intestinal Tract, Via Natural or Artificial Opening Endoscopic (ICD-10-PCS; principal; 2022-04-19 07:30)
DX: Z12.11 Encounter for screening for malignant neoplasm of colon (principal); I11.0 Hypertensive heart disease with heart failure; I50.20 Unspecified systolic (congestive) heart failure; I25.10 Atherosclerotic heart disease of native coronary artery without angina pectoris; J44.9 Chronic obstructive pulmonary disease, unspecified; E11.9 Type 2 diabetes mellitus without complications; E78.5 Hyperlipidemia, unspecified; I25.2 Old myocardial infarction; Z72.0 Tobacco use; Z79.84 Long term (current) use of oral hypoglycemic drugs; K63.5 Polyp of colon
CPT/HCPCS: 45380; 45385; 82962; 88305

== ENCOUNTER → 2022-05-02 12:04 | Outpatient (CLI) | payer MEDICARE, SELFPAY ==
--- NOTE | 2022-05-02 12:18 | US_ITS ---
FINAL REPORT CLINICAL HISTORY: ascites COMPARISON: CT dated April 05, 2022 FINDINGS: Sonographic images of the abdomen were obtained. The liver has heterogeneous echotexture with lobular contour consistent with history of cirrhosis. There is no hepatic mass. The portal vein is dilated at 16 mm. There is nonspecific gallbladder wall thickening measuring 5 mm. There is no evidence of biliary ductal dilatation. The common hepatic duct measures 3 mm, which is within normal limits. Limited images of the pancreas are unremarkable. The spleen measures at the upper limits of normal at 11.9 cm in length. The right kidney measures 12.5 in length. The left kidney measures 12.9 in length. There is normal renal echogenicity. There is no evidence of hydronephrosis. There is a 3.6 cm abdominal aortic aneurysm which is stable since the recent CT. Limited images of the inferior vena cava are unremarkable. There is a small to moderate amount of ascites. IMPRESSION: Liver findings consistent with history of cirrhosis. Portal vein dilated to 16 mm. 3.6 cm abdominal aortic aneurysm, stable since recent CT. Small to moderate amount of ascites. Reviewed, Interpreted and Dictated by Patrice Singh III, MD Transcribed by Latasha Mazariegos Authenticated and [facility]
[2022-05-02 12:26] LABS: Basophils % 0.3 % (0.1-2.0); Eosinophils # 0.1 K/mm3 (0.0-0.4); Eosinophils % 1.4 % (0.1-12.0); Hematocrit 27.5 % (42.0-52.0); Hemoglobin 8.6 g/dL (14.1-18.0); Lymphocytes # 0.9 K/mm3 (0.7-4.5); Lymphocytes % 19.1 % (10-50); Mean Corpuscular HGB Conc 31.1 g/dL (31.8-35.4); Mean Corpuscular Hemoglobin 27.9 pg (27.0-31.2); Mean Corpuscular Volume 89.7 fl (80-94); Mean Platelet Volume 8.9 fl (7.4-10.4); Monocytes # 0.5 K/mm3 (0.1-1.0); Monocytes % 9.7 % (1.7-9.3); Neutrophils # 3.3 K/mm3 (1.8-7.8); Neutrophils % 69.5 % (37.0-80.0); Platelet Count 197 K/mm3 (142-424); Red Blood Count 3.07 M/mm3 (4.60-6.20); Red Cell Distribution Width 18.2 % (11.5-17.5); White Blood Count 4.7 K/mm3 (4.8-10.8)
[2022-05-02 12:38] LABS: Ammonia 15 umol/L (9-30)
[2022-05-02 13:08] LABS: Alanine Aminotransferase 12 U/L (12-78); Albumin Level 3.2 g/dl (3.5-5.0); Albumin/Globulin Ratio 1.1 (1.1-1.8); Alkaline Phosphatase 92 U/L (38-126); Anion Gap 9.5 mEq/L (5-15); Aspartate Amino Transferase 20 U/L (17-59); Bilirubin,Total 1.5 mg/dl (0.2-1.3); Blood Urea Nitrogen 14 mg/dl (9-20); Calcium 8.6 mg/dl (8.4-10.2); Carbon Dioxide 30 mmol/L (22.0-30.0); Chloride 100 mmol/L (98-107); Estimated Glomerular Filt Rate 95 ml/min (>60); GFR (African American) 115 ML/MIN (>60); Glucose 51 mg/dl (74-100); Potassium 4.5 mmoL/L (3.5-5.1); Sodium 135 mmol/L (136-145); Total Protein,Serum 6.2 g/dl (6.3-8.2)
== END ==
LOC: LAB 12:06
PROVIDERS: PCP Physician Assistant; Visit Provider Physician Assistant
DX: I95.9 Hypotension, unspecified (principal); K74.60 Unspecified cirrhosis of liver
CPT/HCPCS: 36415; 76700; 80053; 82140; 85025

== ENCOUNTER 2022-05-10 15:08 | Inpatient (IN) | payer MEDICARE, SELFPAY ==
[2022-05-10] VITALS (9 sets, daily range): BP systolic 100–118; BP diastolic 62–78; PULSE 81–88; RESP 18–26; TEMP 36.4–36.6; O2SAT 96–100; BMI 32.5
--- NOTE | 2022-05-10 15:06 | ECG_ITS ---
APPROVED REPORT Exam: Resting ECG HR:88 bpm ECG Measurements Heart Rate 88 AXES IA 119 P -76 QRSd 127 QRS 83 QT 364 T 148 QTc 410 Conclusion Normal sinus rhythm with first-degree AV block Poor R wave progression Q wave deflections in inferior leads are nonsignificant ABNORMAL ECG UNCONFIRMED REPORT Electronically signed by : Khanh Scott MD 05/13/2022 14:08:43
--- NOTE | 2022-05-10 15:12 | HMH.EDGENADL ---
ED Disposition Clinical Impression: Low blood pressure reading, Pleural effusion Congestive heart failure Qualifiers: Heart failure type: unspecified Heart failure chronicity: acute on chronic Qualified Code(s): I50.9 - Heart failure, unspecified Disposition: Admitted as Observation Condition on Discharge: Fair Referrals: Provider,Referral, [Primary Care Provider] - - Critical Care Critical Care Time: No Attestation: On , the high probability of a clinically significant, sudden or life threatening deterioration of the following system(s) required my full and direct attention, intervention and personal management. The time I documented below is in addition to time spent performing reported procedures but includes the following listed in this critical care notation. Medical Decision Making - Medical Records Medical records reviewed: Yes: I reviewed the patient's medical records. MR Comment: Reviewed discharge summary from admission 04/04/2236. Reviewed recent outpatient abdominal ultrasound result, see below. - Carl Inquiry Pt receiving controlled substance: No Vital Signs: 05/10/22 15:10 05/10/22 15:31 05/10/22 16:01 Temperature 97.5 F L Temperature Source Oral Pulse Rate 81 81 Pulse Rate [Left Radial] 85 Respiratory Rate 26 H Blood Pressure 118/74 110/78 Blood Pressure [Right Arm] 100/63 L Blood Pressure Mean 83 90 Blood Pressure Mean [Right Arm] 75 Blood Pressure Source [Right Arm] Automatic Cuff Blood Pressure Position [Right Arm] Sitting 02 Sat by Pulse Oximetry 96 99 98 Oxygen Delivery Method Room Air 05/10/22 16:30 Temperature Temperature Source Pulse Rate 85 Pulse Rate [Left Radial] Respiratory Rate Blood Pressure 105/62 L Blood Pressure [Right Arm] Blood Pressure Mean 76 Blood Pressure Mean [Right Arm] Blood Pressure Source [Right Arm] Blood Pressure Position [Right Arm] 02 Sat by Pulse Oximetry 100 Oxygen Delivery Method - Lab Data Lab Results 05/10/22 15:10: WBC 6.4, RBC 3.45 L, Hgb 9.7 L, Hct 33.2 L, MCV 96.5 H, MCH 28.1, MCHC 29.1 L, RDW 20.4 H, Plt Count 222, MPV 9.5, Neut % (Auto) 64.8, Lymph % (Auto) 21.5, Dixie % (Auto) 11.3 H, Eos % (Auto) 1.4, Baso % (Auto) 0.9, Neut # (Auto) 4.1, Lymph # (Auto) 1.4, Dixie # (Auto) 0.7, Eos # (Auto) 0.1, Baso # (Auto) 0.1 05/10/22 15:10: Sodium 138, Potassium 4.8, Chloride 101, Carbon Dioxide 29, Anion Gap 12.8, BUN 18, Creatinine 0.90, Estimated Creat Clear 101, Estimated GFR 83, Est GFR ( Amer) 100, Glucose 104 H, Calcium 9.5, Total Bilirubin 2.8 H, AST 35, ALT 21, Alkaline Phosphatase 109, Troponin I 0.03, Total Protein 8.0 D, Albumin 4.2, Globulin 3.8 H, Albumin/Globulin Ratio 1.1 05/10/22 15:10: NT-Pro-B Natriuret Pep 4550 H 05/10/22 16:38: SARS-CoV-2 (PCR) Not detected, Influenza A Untype (PCR) Not detected, Influenza Type B (PCR) Not detected Result diagrams: 05/10/22 15:10 05/10/22 15:10 Orders (Tests/Meds): ED MEDICATIONS Discontinued Medications Generic Name Dose Route Start Last Admin Trade Name Freq PRN Reason Stop Dose Admin Furosemide 40 mg 05/10/22 16:23 05/10/22 16:27 Furosemide 40mg/4ml Vial IV 05/10/22 16:24 40 mg ONCE ONE Administration ORDERS Category Date Time Status Troponin I Q3H Lab 05/10/22 18:30 Ordered Troponin I Q3H Lab 05/10/22 21:30 Ordered recent abdo US: Procedure(s): US abdomen complete Accession Number(s): [id number] cc: Patrice Singh MD; Thalia Campuzano~ FINAL REPORT CLINICAL HISTORY: ascites COMPARISON: CT dated April 05, 2022 FINDINGS: Sonographic images of the abdomen were obtained. The liver has heterogeneous echotexture with lobular contour consistent with history of cirrhosis. There is no hepatic mass. The portal vein is dilated at 16 mm. There is nonspecific gallbladder wall thickening measuring 5 mm. There is no evidence of biliary ductal dilatation. The common hepatic duct measures
--- NOTE | 2022-05-10 15:17 | XR_ITS ---
FINAL REPORT CLINICAL HISTORY: soa COMPARISON: April 03, 2022 FINDINGS: Two views of the chest were obtained. There is a left subclavian ICD. Cardiomegaly is noted. There has been prior median sternotomy. No acute pulmonary abnormality is identified. There is a small left pleural effusion. There is no pneumothorax. The bony thorax is intact. IMPRESSION: No acute cardiopulmonary process. Small left pleural effusion. Reviewed, Interpreted and Dictated by Patrice Singh III, MD Transcribed by Reji Huynh Authenticated and [facility]
--- NOTE | 2022-05-10 15:23 | PC.NURSE ---
pt to xray via wheelchair
[2022-05-10 15:30] LABS: Chloride 101 mmol/L (98-107)
--- NOTE | 2022-05-10 15:30 | PC.NURSE ---
Pt returned from rad
[2022-05-10 15:31] LABS: Potassium 4.8 mmoL/L (3.5-5.1); Sodium 138 mmol/L (136-145)
[2022-05-10 15:32] LABS: Basophils # 0.1 K/mm3 (0-0.2); Basophils % 0.9 % (0.1-2.0); Eosinophils # 0.1 K/mm3 (0.0-0.4); Eosinophils % 1.4 % (0.1-12.0); Hematocrit 33.2 % (42.0-52.0); Hemoglobin 9.7 g/dL (14.1-18.0); Lymphocytes # 1.4 K/mm3 (0.7-4.5); Lymphocytes % 21.5 % (10-50); Mean Corpuscular HGB Conc 29.1 g/dL (31.8-35.4); Mean Corpuscular Hemoglobin 28.1 pg (27.0-31.2); Mean Corpuscular Volume 96.5 fl (80-94); Mean Platelet Volume 9.5 fl (7.4-10.4); Monocytes # 0.7 K/mm3 (0.1-1.0); Monocytes % 11.3 % (1.7-9.3); Neutrophils # 4.1 K/mm3 (1.8-7.8); Neutrophils % 64.8 % (37.0-80.0); Platelet Count 222 K/mm3 (142-424); Red Blood Count 3.45 M/mm3 (4.60-6.20); Red Cell Distribution Width 20.4 % (11.5-17.5); White Blood Count 6.4 K/mm3 (4.8-10.8)
[2022-05-10 15:33] LABS: Alanine Aminotransferase 21 U/L (12-78); Alkaline Phosphatase 109 U/L (38-126); Anion Gap 12.8 mEq/L (5-15); Aspartate Amino Transferase 35 U/L (17-59); Bilirubin,Total 2.8 mg/dl (0.2-1.3); Blood Urea Nitrogen 18 mg/dl (9-20); Carbon Dioxide 29 mmol/L (22.0-30.0); Creatinine Clearance Estimated 101 mL/min (50-200); Estimated Glomerular Filt Rate 83 ml/min (>60); GFR (African American) 100 ML/MIN (>60)
[2022-05-10 15:34] LABS: Albumin Level 4.2 g/dl (3.5-5.0); Albumin/Globulin Ratio 1.1 (1.1-1.8); Calcium 9.5 mg/dl (8.4-10.2); Globulin 3.8 g/dL (1.3-3.2); Glucose 104 mg/dl (74-100)
[2022-05-10 15:43] LABS: NT Pro Brain Natriuretic Pep. 4550 pg/mL (0-125)
[2022-05-10 15:46] LABS: Troponin I 0.03 ng/ml (0.00-0.034)
--- NOTE | 2022-05-10 16:37 | PC.NURSE ---
Paging Dr Carlos at this time, whom is corporate learning consultant for Dr Aguirre
--- NOTE | 2022-05-10 16:40 | PC.NURSE ---
[facility] to call [facility] with [facility]. Multiple attempts made at this time.
[2022-05-10 16:41] LABS: Coronavirus 19, PCR Not Detected (NotDetected); Influenza A, PCR Not Detected (NotDetected); Influenza B, PCR Not Detected (NotDetected)
--- NOTE | 2022-05-10 17:00 | PC.NURSE ---
[facility], states [facility]. [facility] Form filled out and signed per pt, [facility]
--- NOTE | 2022-05-10 17:10 | PC.NURSE ---
MARY MCKEON spoke with Dr. Carlos
--- NOTE | 2022-05-10 17:10 | PC.NURSE ---
notified care management of admission, spoke with starr
--- NOTE | 2022-05-10 17:21 | PC.NURSE ---
rounded on pt at this time pt sitting up in bed, states no needs at this time.
--- NOTE | 2022-05-10 17:34 | PC.NURSE ---
pt voided per urinal at this time, 400 mL
--- NOTE | 2022-05-10 17:39 | PC.NURSE ---
called and got pt some soup
--- NOTE | 2022-05-10 18:29 | PC.NURSE ---
report given to Lashay PERDOMO
--- NOTE | 2022-05-10 18:49 | PC.NURSE ---
Pt to 2nd floor per nursing staff
--- NOTE | 2022-05-10 19:30 | PC.NURSE ---
Patient is unsure of CPAP settings. Patient with be updated with explanation.
[2022-05-10 20:58] LABS: POC Glucose,Bedside 105 (70-110)
[2022-05-11] VITALS (10 sets, daily range): BP systolic 110–120; BP diastolic 69–88; PULSE 84–95; RESP 18–22; TEMP 36.3–36.9; O2SAT 92–100; BMI 33.4
--- NOTE | 2022-05-11 05:07 | PC.NURSE ---
Patient is A&0x 4. Patient on 2l nc for comfort sating above 90%. New duoneb orders obtained this shift r/t SOB. Patient responded well to breathing tx. Patient has 3+ pitting dayan leg edema noted.
[2022-05-11 08:04] LABS: Anion Gap 10.2 mEq/L (5-15); Blood Urea Nitrogen 19 mg/dl (9-20); Calcium 8.8 mg/dl (8.4-10.2); Carbon Dioxide 33 mmol/L (22.0-30.0); Chloride 98 mmol/L (98-107); Creatinine Clearance Estimated 104 mL/min (50-200); Estimated Glomerular Filt Rate 95 ml/min (>60); GFR (African American) 115 ML/MIN (>60); Glucose 178 mg/dl (74-100); Potassium 4.2 mmoL/L (3.5-5.1); Sodium 137 mmol/L (136-145)
--- NOTE | 2022-05-11 08:51 | HMH.PHAVTE ---
[facility] Pharmacy VTE Monitoring - Patient Demographics Admission date: 05/11/22 Report Date: 05/11/22 Time: 08:51 Allergies/Adverse Reactions: Patient Allergies No Known Allergies Allergy (Verified 05/09/22 12:56) Height: 1.83 m Weight: 112.066 kg Patient Problems: Current Active Problems Pleural effusion (Acute) Congestive heart failure (Acute) Low blood pressure reading (Acute) - VTE Risk Labs: VTE Related Lab Results Hgb 9.7 g/dL (14.1-18.0) L 05/10/22 15:10 Hct 33.2 % (42.0-52.0) L 05/10/22 15:10 Plt Count 222 K/mm3 (142-424) 05/10/22 15:10 BUN 19 mg/dl (9-20) 05/11/22 07:30 Creatinine 0.80 mg/dl (0.66-1.25) 05/11/22 07:30 Estimated Creat Clear 104 mL/min (50-200) 05/11/22 07:30 Was VTE Risk Assessment Performed: Yes VTE Score: 8 VTE Risk Level: Moderate Risk Clinical Trial Participant: No - Prophylaxis VTE Prophylaxis Ordered?: Yes Types of VTE Prophylaxis: TEDS Knee High
--- NOTE | 2022-05-11 09:06 | HMH.PHAINT ---
verified home medicaiton list using list from April discharged from this facility
[2022-05-11 11:22] LABS: POC Glucose,Bedside 124 (70-110)
--- NOTE | 2022-05-11 13:21 | HMH.HP ---
*Admission Date: 05/11/22 *Chief complaint: dyspnea, volume overload *History of present illness: Complains of difficulty breathing, swelling of abdomen and legs, hurting all over, particularly across his abdomen from the swelling in both knees. States he has difficulty breathing because of shortness of breath and because of generalized pain. States that the symptoms have been going on for 4 to 5 months, but worse over the past couple of days. He sees physicians at the [facility] as well as here in [place]. He has a primary care provider at the [facility] and also sees Thalia at Dr. Aguirre's office. He says that he had an appointment to see his primary care provider at the [facility] today, but did not make his appointment because it was too far to go . He says that his daughter took his blood pressure this afternoon and it was low so she brought him to the emergency department. He does not know what the blood pressure reading was, nurse reports to me that son stated it was in the 60s and 70s. He says that he has a client success specialist at the [facility]. He is supposed to be seeing Dr. Davey in [place] at some point, he thinks it might be because of his liver. He has oxygen at home that he uses as needed at 2 L. Patient has underlying COPD, uses several inhalers at home. Patient has underlying CHELO, uses CPAP. Patient with longstanding cirrhosis with ascites. Followed by Dr. Davey in [place]. This may be contributing to his dyspnea. [facility] History Medical History: Reports:: Aneurysm, Congestive Heart Failure, Chronic Obstructive Pulmonary Disease (COPD), Congenital Heart Disease, Coronary Artery Disease, Diabetes Mellitus Type 2, Hyperlipidemia, Hypertension, Myocardial Infarction, Renal Insufficiency Denies:: Cancer, Diabetes Mellitus Type 1, Internal Pacemaker, MRSA, Seizures *Have you ever received a pneumonia vaccine?: Yes *Have you received a flu vaccine this season?: Yes Other Medical History: Reports: Anemia, Arthritis Other Surgeries: Yes: No Previous Surgery, CABG, Cardiac Catheterization, Cardiac Surgery, Colonoscopy, Coronary Stent, Open Heart Surgery. No: Pacemaker Amputation: No Fractures: No - *Social History Last grade of school completed: High school graduate Smoking Status: Current every day smoker Tobacco Type: cigarettes # Packs/Day (cigarettes): 1 Alcohol Intake: never Substance Use Type: denies use *Occupational Status:: retired Housing: house Household Members: spouse *Travel in the last 8 weeks: None Family Hx:: No significant family history Review of Systems - Constitutional Reports lack of energy, Reports weakness - Eyes Denies change in vision - ENT Denies abnormal hearing - *Cardiovascular Reports shortness of breath, Reports shortness of breath with activity, Reports generalized swelling, Reports leg swelling, Reports shortness of breath when lying down, Reports shortness of breath causing sudden awakening - *Respiratory Reports change in phlegm color, Reports chest congestion, Reports cough, Reports shortness of breath, Reports shortness of breath with activity, Reports wheezing - *Gastrointestinal Reports abdominal pain, Reports bloating, Reports feeling full early, Denies coffee ground vomit, Denies black, tarry stools - *Genitourinary Denies difficulty urinating - *Musculoskeletal Reports muscle weakness - Integumentary/Breasts Denies yellowing of the skin - *Neurologic Denies abnormal speech, Denies behavioral changes - Psychiatric Denies confusion - Endocrine Denies cold intolerance - Hematologic/Lymphatic Denies easy bleeding, Denies easy bruising - Allergic/Immunologic Denies hives Meds Home Medications Medication Instructions Recorded Confirmed Type Albuterol Sulfate [Albuterol 2 puffs IH QIDP PRN 08/26/21 05/10/22 History Sulfate Hfa] Buspirone HCl [Buspar 10mg 20 mg PO TID 08/26/21 05/10/22 History tablet] Duloxetine HCl 120 mg PO DAILY 08/26/21 05/10/22 Hist
[2022-05-11 16:59] LABS: POC Glucose,Bedside 144 (70-110)
[2022-05-11 20:39] LABS: POC Glucose,Bedside 183 (70-110)
[2022-05-12] VITALS (11 sets, daily range): BP systolic 109–136; BP diastolic 55–72; PULSE 66–95; RESP 16–22; TEMP 36.6–37.1; O2SAT 95–100; BMI 32.5
--- NOTE | 2022-05-12 04:05 | PC.NURSE ---
Pt has slept intermittently t/o shift. Pt remains on 2L NC with O2 92-95%. Pt voiced no c/o of SOA or pain this shift. Lungs sounds are diminished bilaterally. +1 edema noted to BLE. Pt has used urinal independently t/o shift with 1,600ml in output thus far in shift.
--- NOTE | 2022-05-12 06:00 | XR_ITS ---
PROCEDURE INFORMATION: Exam: XR Chest Exam date and time: 05/12/2022 5:56 AM Age: 72 years old Clinical indication: Other: Chf TECHNIQUE: Imaging protocol: Radiologic exam of the chest. Views: 1 view. COMPARISON: CR XR CHEST 2V 05/10/2022 3:16 PM FINDINGS: Tubes, catheters and devices: Left ICD. Lungs: Mild pulmonary vascular congestion and interstitial prominence bilaterally, similar to previous. No new focal consolidation. Pleural spaces: Small left pleural effusion. Heart/Mediastinum: Cardiomegaly. Bones/joints: Sternotomy. No acute fracture. IMPRESSION: 1. Similar appearance to previous. Cardiomegaly with mild pulmonary vascular congestion and interstitial prominence bilaterally. 2. Small left pleural effusion.
[2022-05-12 06:16] LABS: POC Glucose,Bedside 179 (70-110)
[2022-05-12 10:55] LABS: POC Glucose,Bedside 204 (70-110)
--- NOTE | 2022-05-12 12:54 | HMH.ACPN2 ---
Internal Medicine - PN: Subj *Date: 05/12/22 *Time: 12:54 Interval history: Patient continues to have some dyspnea. Crackles at his left base are becoming more prominent. Uneventful night Exam Vital signs and Labs for Last 24 Hours: Temp Pulse Resp BP Pulse Ox 97.8 F 85 20 109/70 L 100 05/12/22 11:56 05/12/22 11:56 05/12/22 11:56 05/12/22 11:56 05/12/22 11:56 Laboratory Results - last 24 hr 05/11/22 16:22: POC Glucose 144 H 05/11/22 20:22: POC Glucose 183 H 05/12/22 06:04: POC Glucose 179 H 05/12/22 10:49: POC Glucose 204 H I & O for Last 24 hours: Intake & Output 05/09/22 05/10/22 05/11/22 05/12/22 23:59 23:59 23:59 23:59 Intake Total 920 / 920 560 / 560 Output Total 700 / 700 3725 / 3725 1700 / 1700 Balance -700 / -700 -2805 / -2805 -1140 / -1140 Weight 240 lb 247 lb 1 oz 240 lb 8.989 oz - Constitutional no acute distress, chronically ill appearing - *Routine HEENT Exam Head: Present: normocephalic Eye: Present: EOMI, PERRL ENT: Present: mucous membranes moist - *Routine Neck Exam Present: supple. Absent: lymphadenopathy - *Routine Respiratory Exam Present: rales, rhonchi, crackles, diminished air movement. Absent: accessory muscle use, wheezes - *Routine Cardiovascular Exam Present: RRR - *Routine Abdominal Exam Present: obese - *Routine Extremities Exam Present: edema, PHAN stockings. Absent: cyanosis, clubbing - *Routine Skin Exam Present: warm. Absent: jaundice, rash - *Routine Neurological Exam Present: alert, oriented X3 Assessment and Plan (1) Congestive heart failure Status: Chronic Qualifiers: Heart failure type: unspecified Heart failure chronicity: acute on chronic Qualified Code(s): I50.9 - Heart failure, unspecified Category: Medical Code(s): I50.9 - Heart failure, unspecified (2) Low blood pressure reading Status: Acute Category: Medical Code(s): R03.1 - Nonspecific low blood-pressure reading (3) Pleural effusion Status: Acute Category: Medical Code(s): J90 - Pleural effusion, not elsewhere classified (4) Acute on chronic systolic (congestive) heart failure Status: Acute Category: Medical Code(s): I50.23 - Acute on chronic systolic (congestive) heart failure (5) Acute on chronic systolic congestive heart failure, NYHA class 4 Status: Acute Category: Medical Code(s): I50.23 - Acute on chronic systolic (congestive) heart failure (6) Ascites Status: Chronic Qualifiers: Ascites type: other type Qualified Code(s): R18.8 - Other ascites Category: Medical Code(s): R18.8 - Other ascites (7) Cardiac murmur, unspecified Status: Chronic Category: Medical Code(s): R01.1 - Cardiac murmur, unspecified (8) Cirrhosis of liver Status: Chronic Qualifiers: Hepatic cirrhosis type: unspecified hepatic cirrhosis Ascites presence: with ascites Qualified Code(s): K74.60 - Unspecified cirrhosis of liver; R18.8 - Other ascites Category: Medical Code(s): K74.60 - Unspecified cirrhosis of liver (9) Ischemic cardiomyopathy Status: Chronic Category: Medical Code(s): I25.5 - Ischemic cardiomyopathy (10) COPD (chronic obstructive pulmonary disease) Status: Chronic Qualifiers: COPD type: unspecified COPD Qualified Code(s): J44.9 - Chronic obstructive pulmonary disease, unspecified Category: Medical Code(s): J44.9 - Chronic obstructive pulmonary disease, unspecified (11) Coronary artery disease Status: Chronic Qualifiers: Coronary Disease-Associated Artery/Lesion type: unspecified vessel or lesion type [place] vs. transplanted heart: [place] heart Associated angina: with other forms of angina Qualified Code(s): I25.118 - Atherosclerotic heart disease of [place] coronary artery with other forms of angina pectoris Category: Medical Code(s): I25.10 - Atherosclerotic heart disease of [place] coronary artery without angina pectoris
[2022-05-12 17:13] LABS: POC Glucose,Bedside 295 (70-110)
--- NOTE | 2022-05-12 18:30 | PC.NURSE ---
PT IS SITTING UP IN THE BED. ALERT AND ORIENTED X4. EATING AND DRINKING WELL. O2 SATURATIONS HAS MAINTAINED 90-95% ON 2 L NC. LUNG SOUNDS DIMINISHED WITH LEFT SIDED CRACKLES. ABDOMEN SOFT/NON TENDER WITH ACTIVE BOWEL SOUNDS. VSS. TEDS NOTED TO BLE. PT HAS DIURESED WELL. WILL CONTINUE TO MONITOR.
[2022-05-13] VITALS (12 sets, daily range): BP systolic 92–133; BP diastolic 45–89; PULSE 64–112; RESP 16–22; TEMP 36.6–36.9; O2SAT 92–99; BMI 30.2
[2022-05-13 00:38] LABS: POC Glucose,Bedside 322 (70-110)
[2022-05-13 00:38] LABS: POC Glucose,Bedside 98 (70-110)
[2022-05-13 00:38] LABS: POC Glucose,Bedside 57 (70-110)
--- NOTE | 2022-05-13 06:00 | XR_ITS ---
PROCEDURE INFORMATION: Exam: XR Chest Exam date and time: 05/13/2022 5:51 AM Age: 72 years old Clinical indication: Other: Chf copd exacerbatiohn; Additional info: Chf/copd exacerbation TECHNIQUE: Imaging protocol: Radiologic exam of the chest. Views: 2 views. COMPARISON: CR XR CHEST PORTABLE 05/12/2022 5:56 AM FINDINGS: Tubes, catheters and devices: Pacemaker via a left subclavian approach. Lungs: See Pleural spaces finding. Pleural spaces: Moderate pleural effusions left greater than right. Adjacent atelectasis. Heart/Mediastinum: Cardiomegaly Bones/joints: Prior sternotomy. IMPRESSION: Moderate pleural effusions left greater than right. Adjacent atelectasis. Lungs are otherwise well aerated. Allowing for differences in technique, minimal if any interval change from earlier reference study stated above.
--- NOTE | 2022-05-13 06:33 | PC.NURSE ---
PT ALERT AND ORIENTED X 4. PT HAS REMAINED ON 2 L NC W/ O2 SAT >90%. LUNG SOUNDS DIMINISHED BILATERALLY W/ CRACKLES IN LEFT LUNG BASE. PT IS URINATING PER URINAL WITH ADEQUATE URINE OUTPUT - SEE I&O. +1 EDEMA NOTED TO BILATERAL LOWER EXT. TEDS HOSE ON. PT HAS RESTED WELL THIS SHIFT. NO ACUTE COMPLAINTS. CALL LIGHT IN REACH.
[2022-05-13 06:43] LABS: POC Glucose,Bedside 219 (70-110)
[2022-05-13 07:04] LABS: Basophils % 0.1 % (0.1-2.0); Eosinophils % 0.2 % (0.1-12.0); Hematocrit 25.2 % (42.0-52.0); Hemoglobin 7.6 g/dL (14.1-18.0); Lymphocytes # 0.8 K/mm3 (0.7-4.5); Lymphocytes % 8.1 % (10-50); Mean Corpuscular HGB Conc 30.3 g/dL (31.8-35.4); Mean Corpuscular Hemoglobin 28.3 pg (27.0-31.2); Mean Corpuscular Volume 93.4 fl (80-94); Mean Platelet Volume 8.7 fl (7.4-10.4); Monocytes # 0.5 K/mm3 (0.1-1.0); Monocytes % 5.2 % (1.7-9.3); Neutrophils # 8.4 K/mm3 (1.8-7.8); Neutrophils % 86.3 % (37.0-80.0); Platelet Count 270 K/mm3 (142-424); Red Blood Count 2.69 M/mm3 (4.60-6.20); Red Cell Distribution Width 21.9 % (11.5-17.5); White Blood Count 9.7 K/mm3 (4.8-10.8)
[2022-05-13 07:06] LABS: MANUAL DIFFERENTIAL MANUAL DIFFERENTIAL (MANUAL DIFF)
[2022-05-13 07:11] LABS: Alanine Aminotransferase 20 U/L (12-78); Albumin Level 3.4 g/dl (3.5-5.0); Albumin/Globulin Ratio 1.1 (1.1-1.8); Alkaline Phosphatase 98 U/L (38-126); Anion Gap 9.8 mEq/L (5-15); Aspartate Amino Transferase 30 U/L (17-59); Bilirubin,Total 1.3 mg/dl (0.2-1.3); Blood Urea Nitrogen 37 mg/dl (9-20); Calcium 8.8 mg/dl (8.4-10.2); Carbon Dioxide 35 mmol/L (22.0-30.0); Chloride 96 mmol/L (98-107); Creatinine Clearance Estimated 94 mL/min (50-200); Estimated Glomerular Filt Rate 111 ml/min (>60); GFR (African American) 134 ML/MIN (>60); Globulin 3.1 g/dL (1.3-3.2); Glucose 206 mg/dl (74-100); Potassium 3.8 mmoL/L (3.5-5.1); Sodium 137 mmol/L (136-145); Total Protein,Serum 6.5 g/dl (6.3-8.2)
[2022-05-13 07:46] LABS: Anisocytosis 1+; Lymphocytes % 7 % (10-50); Macrocytosis 1+; Monocytes % 1 % (2-9); Neutrophils % 92 % (42-76); Target Cells 1+; Total Cells Counted 100
[2022-05-13 07:47] LABS: Hypochromasia 1+; Ovalocytes 1+; Platelet Estimate Normal
--- NOTE | 2022-05-13 09:00 | HMH.CNCARD ---
History of Present Illness Consult date: 05/13/22 Requesting physician: Jimbo Carlos Consult reason: shortness of breath Chief complaint: CHF, Ischemic CM, CAD, Cirrhosis Additional Medical History:: 1. Coronary artery disease A. History of 6 vessel bypass 1998, [place], [place] at [facility], 02/21/2022 for NSTEMI ANGIOGRAPHIC RESULTS The left main artery Normal The left anterior descending artery Has proximal and mid vessel 50 and 70% stenosis then occluded at mid vessel. The circumflex artery Probably dominant vessel and occluded at mid vessel The right coronary artery Probably nondominant and proximally occluded The ERICKSON ventriculogram reveals Dilated ventricle anterior apical akinesis ejection fraction estimated 20% The left ventricular end-diastolic pressure 10 mmHg FINE to LAD widely patent Saphenous vein graft to circumflex artery has a proximal long eccentric 90% stenosis followed by mid vessel 40 to 50% stenoses Saphenous vein graft to right coronary artery has a proximal valve which gives a 50% angiographic stenosis. Distally there is a concentric 80 to 90% stenosis. The anastomosis has 70% disease in both the anastomosis and [place] right coronary artery. The right coronary artery itself appears to be a small to moderate amount of myocardium IMPRESSION Coronary artery disease as described above Successful stenting of 2 saphenous vein grafts as described above Severe left ventricular dysfunction with large regional wall motion abnormality which is chronic Normal left ventricular end-diastolic pressure PLAN 1. Dual antiplatelet therapy 2. Standard therapy for systolic heart failure 3. Standard therapy for coronary artery disease/ischemic disease 4. LDL less than 55 to be achieved with high intensity statin 5. Cardiac rehabilitation once over COVID 6. Avoidance of tobacco products Electronically signed by : Сергей Muller MD 02/21/2022 12:46:10 2. Ischemic cardiomyopathy A. Ejection fraction approximately 20% B. Dual-chamber AICD implantation approximately 2007 with battery change in 2016 with a [place] generator model CD [id number], Dr. Krystle Hodges. Echo, 02/2022, 1. Biatrial enlargement, dilated left ventricle, severe reduced left ventricular systolic function, visually estimated ejection fraction 20% with segmental wall motion abnormality described above, diastolic parameters are inconclusive. 2. Moderately enlarged right ventricle with reduced contractility. 3. Moderate mitral and tricuspid regurgitation, calculated right ventricular systolic pressure 48 mmHg. 4. No significant pericardial effusion. 5. Inferior vena cava is dilated without significant inspiratory collapse. Electronically signed by : Randal Mendieta MD 02/20/2022 20:08:21 3. Tobacco use, continued, 1 to 2 packs/day for greater than 40 years 4. Diabetes mellitus, diagnosed approximately 2018 5. History of bilateral knee replacements 6. Hypertension 7. Hyperlipidemia 8. Obstructive sleep apnea, CPAP use 9. AAA-3.1 cm (AUG 2021) A. CT of Abd, 02/2022, 3.5 cm 10. Anemia, recurrent with unknown etiology of GI bleed. Pt has appt with GI on 05/15/2022. A. EGD, 04/05/2022, Gastroesophageal junction at 47 cm from the incisors, Mild gastropathy, No identifiable source of blood loss on upper endoscopy or stigmata of recent bleeding B. Colonoscopy, 04/19/2022, Numerous small polyps. Most of these appeared hyperplastic. Some pigmentation of the periappendiceal mucosa within the cecum which was biopsied. All biopsies negative for carcinoma. History of present illness: Complains of difficulty breathing, swelling of abdomen and legs, hurting all over, particularly across his abdomen from the swelling in both knees. States he has difficulty breathing because of shortness of breath and because of generalized pain. States that the symptoms have been going on for 4 to
[2022-05-13 12:05] LABS: POC Glucose,Bedside 278 (70-110)
--- NOTE | 2022-05-13 13:18 | HMH.ACPN2 ---
Internal Medicine - PN: Subj *Date: 05/14/22 *Time: 06:20 Interval history: improved but still sob and sob with activity Exam Vital signs and Labs for Last 24 Hours: Temp Pulse Resp BP Pulse Ox 97.9 F 95 H 18 118/86 99 05/13/22 11:46 05/13/22 11:46 05/13/22 11:46 05/13/22 11:46 05/13/22 11:46 Laboratory Results - last 24 hr 05/11/22 05:30: POC Glucose 57 L 05/11/22 06:06: POC Glucose 98 05/12/22 17:06: POC Glucose 295 H 05/12/22 20:36: POC Glucose 322 H* 05/13/22 06:19: POC Glucose 219 H 05/13/22 06:45: WBC 9.7 D, RBC 2.69 L, Hgb 7.6 L, Hct 25.2 L, MCV 93.4, MCH 28.3, MCHC 30.3 L, RDW 21.9 H, Plt Count 270, MPV 8.7, Neut % (Auto) 86.3 H, Lymph % (Auto) 8.1 L, [place] % (Auto) 5.2, Eos % (Auto) 0.2, Baso % (Auto) 0.1, Neut # (Auto) 8.4 H, Lymph # (Auto) 0.8, [place] # (Auto) 0.5, Eos # (Auto) 0.0, Baso # (Auto) 0.0, Total Counted 100, Neutrophils % (Manual) 92 H, Lymphocytes % (Manual) 7 L, Monocytes % (Manual) 1 L, Platelet Estimate Normal, Hypochromasia 1+, Anisocytosis 1+, Macrocytosis 1+, Target Cells 1+, Ovalocytes 1+ 05/13/22 06:45: Sodium 137, Potassium 3.8, Chloride 96 L, Carbon Dioxide 35 H, Anion Gap 9.8, BUN 37 H D, Creatinine 0.70, Estimated Creat Clear 94, Estimated GFR 111, Est GFR ( Amer) 134, Glucose 206 H, Calcium 8.8, Total Bilirubin 1.3, AST 30, ALT 20, Alkaline Phosphatase 98, Total Protein 6.5, Albumin 3.4 L, Globulin 3.1, Albumin/Globulin Ratio 1.1 05/13/22 11:45: POC Glucose 278 H I & O for Last 24 hours: Intake & Output 05/11/22 05/12/22 05/13/22 05/14/22 11:59 11:59 11:59 11:59 Intake Total 240 / 240 1240 / 1240 1260 / 1260 Output Total 2074 / 2074 4050 / 4050 3525 / 3525 Balance -1835 / -1835 -2810 / -2810 -2265 / -2265 Weight 247 lb 1 oz 240 lb 8.989 oz 223 lb 3.2 oz - Constitutional no acute distress, obese - *Routine HEENT Exam Head: Present: normocephalic Eye: Present: EOMI, PERRL ENT: Present: mucous membranes dry - *Routine Neck Exam Absent: JVD - *Routine Respiratory Exam Present: decreased breath sounds - *Routine Cardiovascular Exam Present: RRR - *Routine Abdominal Exam Present: soft - *Routine Extremities Exam Absent: calf tenderness - *Routine Skin Exam Present: intact - *Routine Neurological Exam Present: alert, CN II-XII intact - Routine Psychiatric Exam Present: cooperative Assessment and Plan (1) Congestive heart failure Status: Chronic Qualifiers: Heart failure type: unspecified Heart failure chronicity: acute on chronic Qualified Code(s): I50.9 - Heart failure, unspecified Category: Medical Code(s): I50.9 - Heart failure, unspecified (2) Low blood pressure reading Status: Acute Category: Medical Code(s): R03.1 - Nonspecific low blood-pressure reading (3) Pleural effusion Status: Acute Category: Medical Code(s): J90 - Pleural effusion, not elsewhere classified (4) Acute on chronic systolic (congestive) heart failure Status: Acute Category: Medical Code(s): I50.23 - Acute on chronic systolic (congestive) heart failure (5) Acute on chronic systolic congestive heart failure, NYHA class 4 Status: Acute Category: Medical Code(s): I50.23 - Acute on chronic systolic (congestive) heart failure (6) Ascites Status: Chronic Qualifiers: Ascites type: other type Qualified Code(s): R18.8 - Other ascites Category: Medical Code(s): R18.8 - Other ascites (7) Cardiac murmur, unspecified Status: Chronic Category: Medical Code(s): R01.1 - Cardiac murmur, unspecified (8) Cirrhosis of liver Status: Chronic Qualifiers: Hepatic cirrhosis type: unspecified hepatic cirrhosis Ascites presence: with ascites Qualified Code(s): K74.60 - Unspecified cirrhosis of liver; R18.8 - Other ascites Category: Medical Code(s): K74.60 - Unspecified cirrhosis of liver (9) Ischemic cardiomyopathy Status: Chronic Category: Medical Code(s): I25.5 - Ischemic cardiomy
--- NOTE | 2022-05-13 17:00 | PC.NURSE ---
Pt is sitting on side of bed, states he is feeling much better. Pt voiding per urinal independently, UOP remains adequate. VSS. O2 stable with 2LNC. LS diminished with fine crackles noted to the left base. IV in Left AC was uncomfortable, bruising noted, dc'd IV and restarted in Right forearm. No complaints noted.
[2022-05-13 17:52] LABS: POC Glucose,Bedside 255 (70-110)
[2022-05-14] VITALS (30 sets, daily range): BP systolic 85–123; BP diastolic 55–81; PULSE 74–112; RESP 16–20; TEMP 36.2–37.1; O2SAT 94–100; BMI 33.4
[2022-05-14 00:38] LABS: POC Glucose,Bedside 196 (70-110)
--- NOTE | 2022-05-14 05:25 | PC.NURSE ---
pt had an uneventful night, VSS, lung sounds diminished, 02 at 2L with 02 sats 98-99; pt a&o x4; no other issues or concerns at this time, skin pwd, voiding without difficulty clear yellow urine with mild odor; mild edema to lower extremities 1+ non pitting.
[2022-05-14 06:45] LABS: POC Glucose,Bedside 244 (70-110)
[2022-05-14 09:29] LABS: Chloride 97 mmol/L (98-107); Potassium 3.7 mmoL/L (3.5-5.1); Sodium 135 mmol/L (136-145)
[2022-05-14 09:32] LABS: Anion Gap 8.7 mEq/L (5-15); Blood Urea Nitrogen 46 mg/dl (9-20); Carbon Dioxide 33 mmol/L (22.0-30.0); Creatinine Clearance Estimated 104 mL/min (50-200); Estimated Glomerular Filt Rate 95 ml/min (>60); GFR (African American) 115 ML/MIN (>60)
[2022-05-14 09:33] LABS: Calcium 8.8 mg/dl (8.4-10.2); Glucose 258 mg/dl (74-100)
[2022-05-14 09:44] LABS: Basophils % 0.2 % (0.1-2.0); Eosinophils # 0.1 K/mm3 (0.0-0.4); Lymphocytes # 0.4 K/mm3 (0.7-4.5); Lymphocytes % 5.4 % (10-50); Mean Corpuscular HGB Conc 30.5 g/dL (31.8-35.4); Mean Corpuscular Hemoglobin 28.4 pg (27.0-31.2); Mean Corpuscular Volume 93.2 fl (80-94); Mean Platelet Volume 8.1 fl (7.4-10.4); Monocytes # 0.3 K/mm3 (0.1-1.0); Monocytes % 4.2 % (1.7-9.3); Neutrophils # 6.8 K/mm3 (1.8-7.8); Neutrophils % 89.1 % (37.0-80.0); Platelet Count 270 K/mm3 (142-424); Red Blood Count 2.21 M/mm3 (4.60-6.20); Red Cell Distribution Width 22.2 % (11.5-17.5); White Blood Count 7.6 K/mm3 (4.8-10.8)
[2022-05-14 09:46] LABS: Hematocrit 20.6 % (42.0-52.0); Hemoglobin 6.3 g/dL (14.1-18.0); MANUAL DIFFERENTIAL MANUAL DIFFERENTIAL (MANUAL DIFF)
[2022-05-14 09:58] LABS: Lymphocytes % 8 % (10-50); Neutrophils % 92 % (42-76); Nucleated Red Blood Cells 2; Total Cells Counted 100
[2022-05-14 09:59] LABS: Hypochromasia 1+
[2022-05-14 10:01] LABS: Platelet Estimate Normal; Target Cells 2+
--- NOTE | 2022-05-14 10:07 | PC.NURSE ---
Addendum entered by Mike Weiss RN 05/14/22 10:08: Awaiting call back at this time. Reported to Kristine @ 0051. Original Note: Called and reported critical H&H of 6.3 and 20.6. NNO
--- NOTE | 2022-05-14 10:13 | HMH.ACPN ---
Internal Medicine - PN: Subj *Date: 05/14/22 *Time: 10:13 Exam Vital signs and Labs for Last 24 Hours: Temp Pulse Resp BP Pulse Ox 97.5 F L 100 H 18 107/63 L 98 05/14/22 08:00 05/14/22 08:00 05/14/22 08:00 05/14/22 08:00 05/14/22 08:00 Laboratory Results - last 24 hr 05/13/22 11:45: POC Glucose 278 H 05/13/22 17:20: POC Glucose 255 H 05/13/22 21:25: POC Glucose 196 H 05/14/22 06:13: POC Glucose 244 H 05/14/22 09:00: Sodium 135 L, Potassium 3.7, Chloride 97 L, Carbon Dioxide 33 H, Anion Gap 8.7, BUN 46 H, Creatinine 0.80, Estimated Creat Clear 104, Estimated GFR 95, Est GFR ( Amer) 115, Glucose 258 H, Calcium 8.8 05/14/22 09:00: WBC 7.6, RBC 2.21 L, Hgb 6.3 L*, Hct 20.6 L*, MCV 93.2, MCH 28.4, MCHC 30.5 L, RDW 22.2 H, Plt Count 270, MPV 8.1, Neut % (Auto) 89.1 H, Lymph % (Auto) 5.4 L, [place] % (Auto) 4.2, Eos % (Auto) 1.0, Baso % (Auto) 0.2, Neut # (Auto) 6.8, Lymph # (Auto) 0.4 L, [place] # (Auto) 0.3, Eos # (Auto) 0.1, Baso # (Auto) 0.0, Total Counted 100, Neutrophils % (Manual) 92 H, Lymphocytes % (Manual) 8 L, Nucleated RBCs 2, Platelet Estimate Normal, Hypochromasia 1+, Target Cells 2+ I & O for Last 24 hours: Intake & Output 05/11/22 05/12/22 05/13/22 05/14/22 23:59 23:59 23:59 23:59 Intake Total 920 / 920 1340 / 1340 1200 / 1440 720 / 720 Output Total 3725 / 3725 3700 / 3800 2500 / 2900 1925 / 1925 Balance -2805 / -2805 -2360 / -2460 -1300 / -1460 -1205 / -1205 Weight 112.066 kg 109.117 kg 101.242 kg 111.947 kg Assessment and Plan (1) Congestive heart failure Status: Chronic Qualifiers: Heart failure type: unspecified Heart failure chronicity: acute on chronic Qualified Code(s): I50.9 - Heart failure, unspecified Category: Medical Code(s): I50.9 - Heart failure, unspecified (2) Low blood pressure reading Status: Acute Category: Medical Code(s): R03.1 - Nonspecific low blood-pressure reading (3) Pleural effusion Status: Acute Category: Medical Code(s): J90 - Pleural effusion, not elsewhere classified (4) Acute on chronic systolic (congestive) heart failure Status: Acute Category: Medical Code(s): I50.23 - Acute on chronic systolic (congestive) heart failure (5) Acute on chronic systolic congestive heart failure, NYHA class 4 Status: Acute Category: Medical Code(s): I50.23 - Acute on chronic systolic (congestive) heart failure (6) Ascites Status: Chronic Qualifiers: Ascites type: other type Qualified Code(s): R18.8 - Other ascites Category: Medical Code(s): R18.8 - Other ascites (7) Cardiac murmur, unspecified Status: Chronic Category: Medical Code(s): R01.1 - Cardiac murmur, unspecified (8) Cirrhosis of liver Status: Chronic Qualifiers: Hepatic cirrhosis type: unspecified hepatic cirrhosis Ascites presence: with ascites Qualified Code(s): K74.60 - Unspecified cirrhosis of liver; R18.8 - Other ascites Category: Medical Code(s): K74.60 - Unspecified cirrhosis of liver (9) Ischemic cardiomyopathy Status: Chronic Category: Medical Code(s): I25.5 - Ischemic cardiomyopathy (10) COPD (chronic obstructive pulmonary disease) Status: Chronic Qualifiers: COPD type: unspecified COPD Qualified Code(s): J44.9 - Chronic obstructive pulmonary disease, unspecified Category: Medical Code(s): J44.9 - Chronic obstructive pulmonary disease, unspecified (11) Coronary artery disease Status: Chronic Qualifiers: Coronary Disease-Associated Artery/Lesion type: unspecified vessel or lesion type [place] vs. transplanted heart: [place] heart Associated angina: with other forms of angina Qualified Code(s): I25.118 - Atherosclerotic heart disease of [place] coronary artery with other forms of angina pectoris Category: Medical Code(s): I25.10 - Atherosclerotic heart disease of [place] coronary artery without angina pectoris (12) Diabetes mellitus type 2 in obese Status: Chronic Category:
--- NOTE | 2022-05-14 10:30 | HMH.PNCARD ---
Subjective Date: 05/14/22 Time: 10:30 Principal diagnosis: Anemia, CHF Interval history: 72-year-old white male in bed in no acute distress. Last bowel movement was 2 to 3 days ago. Still has edema into his abdomen. Hemoglobin today has dropped to 6.3 and transfusion x2 units has been ordered. We will give an additional 80 of Lasix after the first unit of blood. Exam Vital signs and Labs for Last 24 Hours: Temp Pulse Resp BP Pulse Ox 97.5 F L 100 H 18 107/63 L 98 05/14/22 08:00 05/14/22 08:00 05/14/22 08:00 05/14/22 08:00 05/14/22 08:00 Laboratory Results - last 24 hr 05/13/22 11:45: POC Glucose 278 H 05/13/22 17:20: POC Glucose 255 H 05/13/22 21:25: POC Glucose 196 H 05/14/22 06:13: POC Glucose 244 H 05/14/22 09:00: Sodium 135 L, Potassium 3.7, Chloride 97 L, Carbon Dioxide 33 H, Anion Gap 8.7, BUN 46 H, Creatinine 0.80, Estimated Creat Clear 104, Estimated GFR 95, Est GFR ( Amer) 115, Glucose 258 H, Calcium 8.8 05/14/22 09:00: WBC 7.6, RBC 2.21 L, Hgb 6.3 L*, Hct 20.6 L*, MCV 93.2, MCH 28.4, MCHC 30.5 L, RDW 22.2 H, Plt Count 270, MPV 8.1, Neut % (Auto) 89.1 H, Lymph % (Auto) 5.4 L, [place] % (Auto) 4.2, Eos % (Auto) 1.0, Baso % (Auto) 0.2, Neut # (Auto) 6.8, Lymph # (Auto) 0.4 L, [place] # (Auto) 0.3, Eos # (Auto) 0.1, Baso # (Auto) 0.0, Total Counted 100, Neutrophils % (Manual) 92 H, Lymphocytes % (Manual) 8 L, Nucleated RBCs 2, Platelet Estimate Normal, Hypochromasia 1+, Target Cells 2+ I & O for Last 24 hours: Intake & Output 07/09/05/12/22 05/13/22 05/14/22 11:59 11:59 11:59 11:59 Intake Total 240 / 240 1240 / 1240 1260 / 1260 1440 / 1440 Output Total 5 / 2074 4050 / 4050 3525 / 4025 2900 / 2900 Balance -1835 / -1835 -2810 / -2810 -2265 / -2765 -1460 / -1460 Weight 247 lb 1 oz 240 lb 8.989 oz 223 lb 3.2 oz 246 lb 12.8 oz - *Routine Respiratory Exam Present: rales, rhonchi - *Routine Cardiovascular Exam Present: RRR, tachycardia - *Routine Extremities Exam Present: edema. Absent: cyanosis, clubbing - *Routine Neurological Exam Present: alert, oriented X3 Progress Note: A&P (1) Acute on chronic systolic (congestive) heart failure Status: Acute (2) Low blood pressure reading Status: Acute (3) Pleural effusion Status: Acute (4) Ascites Status: Chronic (5) Cardiac murmur, unspecified Status: Chronic (6) Cirrhosis of liver Status: Chronic (7) Ischemic cardiomyopathy Status: Chronic (8) COPD (chronic obstructive pulmonary disease) Status: Chronic (9) Coronary artery disease Status: Chronic (10) Diabetes mellitus type 2 in obese Status: Chronic (11) Hx of CABG Problem details: 6 vessel (1998) Status: Chronic (12) Hyperlipidemia Status: Chronic (13) Hypertension Status: Chronic (14) Ischemic cardiomyopathy with implantable cardioverter-defibrillator (ICD) Status: Chronic (15) Obstructive sleep apnea Status: Chronic (16) COPD exacerbation Status: Acute (17) Anemia Status: Acute Assessment and Plan for All Diagnoses:: 1. Acute on chronic systolic congestive heart failure complicated by recurrent anemia. Patient to be transfused 2 units of blood today. We will give additional IV Lasix after the first unit. Continue to monitor renal status. 2. Ischemic cardiomyopathy (EF 20% 04/2022)/history of CABG with AICD, beta-isa and SEDA inhibitor restarted yesterday. 3. COPD 4. CHELO 5. Recurrent anemia with previous upper and lower endoscopy unable to identify etiology. Red tagged cell study ordered but I do not believe patient had this performed. 6. Cirrhosis of the liver with ascites
[2022-05-14 12:52] LABS: Occult Blood,Stool Negative (Negative)
--- NOTE | 2022-05-14 14:15 | HMH.ACPN2 ---
Internal Medicine - PN: Subj *Date: 05/14/22 *Time: 14:19 Interval history: 52-year-old male patient sitting up in bed resting quietly, he denies any shortness of breath or chest pain during the night. Hemoglobin this morning 6.3, will transfuse 2 units packed red blood cells. He denies any visible blood. Exam Vital signs and Labs for Last 24 Hours: Temp Pulse Resp BP Pulse Ox 97.8 F 83 20 85/63 L 99 05/14/22 13:25 05/14/22 13:25 05/14/22 13:25 05/14/22 13:25 05/14/22 13:25 Laboratory Results - last 24 hr 05/13/22 12:29: Stool Occult Blood Negative 05/13/22 17:20: POC Glucose 255 H 05/13/22 21:25: POC Glucose 196 H 05/14/22 06:13: POC Glucose 244 H 05/14/22 09:00: Sodium 135 L, Potassium 3.7, Chloride 97 L, Carbon Dioxide 33 H, Anion Gap 8.7, BUN 46 H, Creatinine 0.80, Estimated Creat Clear 104, Estimated GFR 95, Est GFR ( Amer) 115, Glucose 258 H, Calcium 8.8 05/14/22 09:00: WBC 7.6, RBC 2.21 L, Hgb 6.3 L*, Hct 20.6 L*, MCV 93.2, MCH 28.4, MCHC 30.5 L, RDW 22.2 H, Plt Count 270, MPV 8.1, Neut % (Auto) 89.1 H, Lymph % (Auto) 5.4 L, [place] % (Auto) 4.2, Eos % (Auto) 1.0, Baso % (Auto) 0.2, Neut # (Auto) 6.8, Lymph # (Auto) 0.4 L, [place] # (Auto) 0.3, Eos # (Auto) 0.1, Baso # (Auto) 0.0, Total Counted 100, Neutrophils % (Manual) 92 H, Lymphocytes % (Manual) 8 L, Nucleated RBCs 2, Platelet Estimate Normal, Hypochromasia 1+, Target Cells 2+ 05/14/22 10:37: Blood Type O Positive, Antibody Screen Negative, Crossmatch (AHG) See Detail I & O for Last 24 hours: Intake & Output 05/11/22 05/12/22 05/13/22 05/14/22 23:59 23:59 23:59 23:59 Intake Total 920 / 920 1340 / 1340 1200 / 1440 1200 / 1200 Output Total 3725 / 3725 3700 / 3800 2500 / 2900 2475 / 2475 Balance -2805 / -2805 -2360 / -2460 -1300 / -1460 -1275 / -1275 Weight 247 lb 1 oz 240 lb 8.989 oz 223 lb 3.2 oz 246 lb 12.8 oz - Constitutional no acute distress - *Routine HEENT Exam Head: Present: normocephalic Eye: Present: EOMI ENT: Present: mucous membranes moist - *Routine Neck Exam Present: supple, trachea midline. Absent: tracheal deviation - *Routine Respiratory Exam Present: rhonchi, wheezes. Absent: accessory muscle use - *Routine Cardiovascular Exam Present: RRR - *Routine Abdominal Exam Present: soft, normoactive bowel sounds. Absent: tenderness, firm - *Routine Extremities Exam Present: full ROM, pulses intact. Absent: cyanosis, clubbing - *Routine Skin Exam Present: intact, dry. Absent: cyanosis, erythema, jaundice - *Routine Neurological Exam Present: alert, oriented X3. Absent: motor deficit - Routine Psychiatric Exam Present: normal affect, normal thought process. Absent: auditory hallucinations Assessment and Plan (1) Acute on chronic systolic (congestive) heart failure Status: Acute Category: Medical Code(s): I50.23 - Acute on chronic systolic (congestive) heart failure (2) Low blood pressure reading Status: Acute Category: Medical Code(s): R03.1 - Nonspecific low blood-pressure reading (3) Pleural effusion Status: Acute Category: Medical Code(s): J90 - Pleural effusion, not elsewhere classified (4) Ascites Status: Chronic Qualifiers: Ascites type: other type Qualified Code(s): R18.8 - Other ascites Category: Medical Code(s): R18.8 - Other ascites (5) Cardiac murmur, unspecified Status: Chronic Category: Medical Code(s): R01.1 - Cardiac murmur, unspecified (6) Cirrhosis of liver Status: Chronic Qualifiers: Hepatic cirrhosis type: unspecified hepatic cirrhosis Ascites presence: with ascites Qualified Code(s): K74.60 - Unspecified cirrhosis of liver; R18.8 - Other ascites Category: Medical Code(s): K74.60 - Unspecified cirrhosis of liver (7) Ischemic cardiomyopathy Status: Chronic Category: Medical Code(s): I25.5 - Ischemic cardiomyopathy (8) COPD (chronic obstructive pulmonary disease) Status: Chronic Qualifiers: COPD typ
[2022-05-14 16:57] LABS: POC Glucose,Bedside 333 (70-110)
--- NOTE | 2022-05-14 19:30 | PC.NURSE ---
Pt is on 2nd unit of blood at this time and is tolerating w/o any issues. VSS. CB in reach. Pt a/o x 4. NAD. 2 L NC 02 remains in use.
[2022-05-15] VITALS: BP 113/63; PULSE 111; RESP 18; TEMP 36.9; O2SAT 99
[2022-05-15 00:57] LABS: POC Glucose,Bedside 252 (70-110)
[2022-05-15 01:41] LABS: Hematocrit 25.9 % (42.0-52.0); Hemoglobin 7.7 g/dL (14.1-18.0)
[2022-05-15 04:00] VITALS: BP 110/61; PULSE 65; RESP 18; TEMP 36.8; O2SAT 96
[2022-05-15 04:25] VITALS: BMI 30.7
--- NOTE | 2022-05-15 05:13 | PC.NURSE ---
pt with h/h reported 7.7/25.9 1 hour after transfusion completed; pt tolerated transfusion without any issues; VSS; lung sounds diminished with 02 at 2L; 02 sats 96-99; skin pwd, additional dose of IV lasix given after transfusion of 80mg, pt voiding without difficulty after lasix, pt alert and oriented x4; no changes from previous assessment; no other issues or concerns at this time.
[2022-05-15 06:17] VITALS: PULSE 70; PULSE 85; O2SAT 98
[2022-05-15 06:20] LABS: POC Glucose,Bedside 244 (70-110)
[2022-05-15 07:00] LABS: Basophils % 0.1 % (0.1-2.0); Eosinophils % 0.1 % (0.1-12.0); Hematocrit 26.1 % (42.0-52.0); Hemoglobin 7.8 g/dL (14.1-18.0); Lymphocytes # 0.5 K/mm3 (0.7-4.5); Lymphocytes % 7.9 % (10-50); Mean Corpuscular HGB Conc 29.7 g/dL (31.8-35.4); Mean Corpuscular Hemoglobin 27.8 pg (27.0-31.2); Mean Corpuscular Volume 93.3 fl (80-94); Mean Platelet Volume 8.5 fl (7.4-10.4); Monocytes # 0.3 K/mm3 (0.1-1.0); Monocytes % 4.2 % (1.7-9.3); Neutrophils # 5.2 K/mm3 (1.8-7.8); Neutrophils % 87.7 % (37.0-80.0); Platelet Count 245 K/mm3 (142-424); Red Blood Count 2.79 M/mm3 (4.60-6.20); Red Cell Distribution Width 20.7 % (11.5-17.5); White Blood Count 5.9 K/mm3 (4.8-10.8)
[2022-05-15 07:04] LABS: Chloride 95 mmol/L (98-107); Sodium 137 mmol/L (136-145)
[2022-05-15 07:05] LABS: MANUAL DIFFERENTIAL MANUAL DIFFERENTIAL (MANUAL DIFF); Potassium 3.7 mmoL/L (3.5-5.1)
[2022-05-15 07:07] LABS: Blood Urea Nitrogen 42 mg/dl (9-20); Creatinine Clearance Estimated 96 mL/min (50-200); Estimated Glomerular Filt Rate 83 ml/min (>60); GFR (African American) 100 ML/MIN (>60)
[2022-05-15 07:08] LABS: Anion Gap 7.7 mEq/L (5-15); Calcium 8.5 mg/dl (8.4-10.2); Carbon Dioxide 38 mmol/L (22.0-30.0); Glucose 228 mg/dl (74-100)
[2022-05-15 07:46] VITALS: BP 118/67; PULSE 97; RESP 18; TEMP 36.5; O2SAT 98
[2022-05-15 07:54] LABS: Anisocytosis 1+; Hypochromasia 1+; Lymphocytes % 8 % (10-50); Macrocytosis 1+; Microcytosis 1+; Monocytes % 3 % (2-9); Neutrophils % 89 % (42-76); Platelet Estimate Normal; Total Cells Counted 100
--- NOTE | 2022-05-15 09:37 | HMH.PNCARD ---
Subjective Date: 05/15/22 Time: 09:37 Principal diagnosis: Anemia, CHF Interval history: 72-year-old white male ambulating in room in no acute distress. Some improvement in shortness of breath after transfusion yesterday. He continues to diurese. Exam Vital signs and Labs for Last 24 Hours: Temp Pulse Resp BP Pulse Ox 97.7 F 97 H 18 118/67 98 05/15/22 07:46 05/15/22 07:46 05/15/22 07:46 05/15/22 07:46 05/15/22 07:46 Laboratory Results - last 24 hr 05/13/22 12:29: Stool Occult Blood Negative 05/14/22 09:00: WBC 7.6, RBC 2.21 L, Hgb 6.3 L*, Hct 20.6 L*, MCV 93.2, MCH 28.4, MCHC 30.5 L, RDW 22.2 H, Plt Count 270, MPV 8.1, Neut % (Auto) 89.1 H, Lymph % (Auto) 5.4 L, [place] % (Auto) 4.2, Eos % (Auto) 1.0, Baso % (Auto) 0.2, Neut # (Auto) 6.8, Lymph # (Auto) 0.4 L, [place] # (Auto) 0.3, Eos # (Auto) 0.1, Baso # (Auto) 0.0, Total Counted 100, Neutrophils % (Manual) 92 H, Lymphocytes % (Manual) 8 L, Nucleated RBCs 2, Platelet Estimate Normal, Hypochromasia 1+, Target Cells 2+ 05/14/22 10:37: Blood Type O Positive, Antibody Screen Negative, Crossmatch (AHG) See Detail 05/14/22 16:41: POC Glucose 333 H* 05/14/22 22:05: Hgb 7.7 L D, Hct 25.9 L 05/15/22 06:03: POC Glucose 244 H 05/15/22 06:45: WBC 5.9, RBC 2.79 L D, Hgb 7.8 L, Hct 26.1 L, MCV 93.3, MCH 27.8, MCHC 29.7 L, RDW 20.7 H, Plt Count 245, MPV 8.5, Neut % (Auto) 87.7 H, Lymph % (Auto) 7.9 L, [place] % (Auto) 4.2, Eos % (Auto) 0.1, Baso % (Auto) 0.1, Neut # (Auto) 5.2, Lymph # (Auto) 0.5 L, [place] # (Auto) 0.3, Eos # (Auto) 0.0, Baso # (Auto) 0.0, Total Counted 100, Neutrophils % (Manual) 89 H, Lymphocytes % (Manual) 8 L, Monocytes % (Manual) 3, Platelet Estimate Normal, Hypochromasia 1+, Anisocytosis 1+, Microcytosis 1+, Macrocytosis 1+ 05/15/22 06:45: Sodium 137, Potassium 3.7, Chloride 95 L, Carbon Dioxide 38 H, Anion Gap 7.7, BUN 42 H, Creatinine 0.90, Estimated Creat Clear 96, Estimated GFR 83, Est GFR ( Amer) 100, Glucose 228 H, Calcium 8.5 I & O for Last 24 hours: Intake & Output 05/12/22 05/13/22 05/14/22 05/15/22 11:59 11:59 11:59 11:59 Intake Total 1240 / 1240 1260 / 1260 1440 / 1440 1210 / 1210 Output Total 4050 / 4050 3525 / 4025 3450 / 3450 2625 / 2625 Balance -2810 / -2810 -2265 / -2765 -2009 / -2009 -1415 / -1415 Weight 240 lb 8.989 oz 223 lb 3.2 oz 246 lb 12.8 oz 226 lb 8 oz - *Routine Respiratory Exam Present: decreased breath sounds, rales, diminished air movement - *Routine Cardiovascular Exam Present: RRR - *Routine Abdominal Exam Present: normoactive bowel sounds, firm. Absent: tenderness - *Routine Extremities Exam Present: edema. Absent: cyanosis, clubbing - *Routine Neurological Exam Present: alert, oriented X3 Progress Note: A&P (1) Acute on chronic systolic (congestive) heart failure Status: Acute (2) Low blood pressure reading Status: Acute (3) Pleural effusion Status: Acute (4) Ascites Status: Chronic (5) Cardiac murmur, unspecified Status: Chronic (6) Cirrhosis of liver Status: Chronic (7) Ischemic cardiomyopathy Status: Chronic (8) COPD (chronic obstructive pulmonary disease) Status: Chronic (9) Coronary artery disease Status: Chronic (10) Diabetes mellitus type 2 in obese Status: Chronic (11) Hx of CABG Problem details: 6 vessel (1998) Status: Chronic (12) Hyperlipidemia Status: Chronic (13) Hypertension Status: Chronic (14) Ischemic cardiomyopathy with implantable cardioverter-defibrillator (ICD) Status: Chronic (15) Obstructive sleep apnea Status: Chronic (16) COPD exacerbation Status: Acute (17) Anemia Status: Acute Assessment and Plan for All Diagnoses:: 1. Anemia with identified source of bleed after recent upper and lower endoscopy. Plans for tagged red cell study as an outpatient. Patient did receive 2 units of blood this admission with hemoglobin at 7.8 on day of discharge. 2. Ischemic cardiomyopathy/AICD/acute on c
--- NOTE | 2022-05-15 09:45 | HMH.DCSUM ---
General - General Admission date:: 05/13/22 Discharge date: 05/15/22 HPI HPI: Complains of difficulty breathing, swelling of abdomen and legs, hurting all over, particularly across his abdomen from the swelling in both knees. States he has difficulty breathing because of shortness of breath and because of generalized pain. States that the symptoms have been going on for 4 to 5 months, but worse over the past couple of days. He sees physicians at the [facility] as well as here in [place]. He [facility] a [facility] provider [facility] and also sees Thalia at Dr. Aguirre's office. He says that he had an appointment to see his primary care provider at the [facility] today, but did not make his appointment because it was too far to go . He says that his daughter took his blood pressure this afternoon and it was low so she brought him to the emergency department. He does not know what the blood pressure reading was, nurse reports to me that son stated it was in the 60s and 70s. He says that he has a rfid specialist at the [facility]. He is supposed to be seeing Dr. Davey in [place] at some point, he thinks it might be because of his liver. He has oxygen at home that he uses as needed at 2 L. Patient has underlying COPD, uses several inhalers at home. Patient has underlying CHELO, uses CPAP. Patient with longstanding cirrhosis with ascites. Followed by Dr. Davey in [place]. This may be contributing to his dyspnea. Hospital Course Hospital Course: Complains of difficulty breathing, swelling of abdomen and legs, hurting all over, particularly across his abdomen from the swelling in both knees. States he has difficulty breathing because of shortness of breath and because of generalized pain. States that the symptoms have been going on for 4 to 5 months, but worse over the past couple of days. He sees physicians at the [facility] as well as here in [place]. He has a primary care provider at the [facility] and also sees Thalia at Dr. Aguirre's office. He says that he had an appointment to see his primary care provider at the [facility] today, but did not make his appointment because it was too far to go . He says that his daughter took his blood pressure this afternoon and it was low so she brought him to the emergency department. He does not know what the blood pressure reading was, nurse reports to me that son stated it was in the 60s and 70s. He says that he has a rfid specialist at the [facility]. He is supposed to be seeing Dr. Davey in [place] at some point, he thinks it might be because of his liver. Of note X-ray revealed No acute cardiopulmonary process. Small left pleural effusion. Cardiology has seen in the Meds: 1. Anemia with identified source of bleed after recent upper and lower endoscopy. Plans for tagged red cell study as an outpatient. Patient did receive 2 units of blood this admission with hemoglobin at 7.8 on day of discharge. 2. Ischemic cardiomyopathy/AICD/acute on chronic systolic congestive heart failure, improved with greater than 10 L negative urine output. 3. Hypertension, controlled 4. Cirrhosis of the liver with ascites Patient will be discharged later today. [facility] with [facility] If he decides to follow-up with us we would like to see him in 1 to 2 weeks. Home medication recommendations Aspirin 81 mg daily Atorvastatin 40 mg daily Carvedilol 3.125 mg twice daily (reduced from 12.5 mg twice daily) Lisinopril 10 mg daily (reduced from 40 mg daily) Lasix 80 mg twice daily Spironolactone 50 mg twice daily Resume Jardiance daily Stop ticagrelor due to recurrent GI bleed and need for recurrent blood transfusions. 72-year-old male patient admitted for acute on chronic congestive heart failure, uncontrolled hypertension. Medications have been optimized per cardiology he reports he is feeling better today with less bilateral lower extremity edema and less shortness of breath.
--- NOTE | 2022-05-15 09:58 | SW/DCPLANNER ---
Addendum entered by Keeley Bose 05/15/22 12:19: Patient is NOT interested in home health services at this time. I have contacted [facility] to disregard referral. Addendum entered by Keeley Bose 05/15/22 11:08: *CORRECTION: patient information/order will be faxed to [facility] due to location. Original Note: I spoke with patient's grandson (Dorian) regarding discharge plans. Dorian stated [place] and resides in home with daughter, son in law and grandson. Dorian is agreeable to home health services for this patient. Patient information/order will be faxed to [facility]. Patient will discharge later today.
[2022-05-15 10:54] VITALS: PULSE 85; PULSE 90; O2SAT 98
[2022-05-15 11:13] LABS: POC Glucose,Bedside 248 (70-110)
[2022-05-15 11:14] LABS: POC Glucose,Bedside 330 (70-110)
[2022-05-15 11:58] VITALS: BP 109/55; PULSE 97; RESP 18; TEMP 36.6; O2SAT 95
--- NOTE | 2022-05-15 12:00 | PC.NURSE ---
Pt awaiting ride at this time.
--- NOTE | 2022-05-15 12:10 | PC.NURSE ---
Pt states he doesn't want home health services. Did make Rhona in care management aware. Have attempted to make f/u with Dr. Tracy Wong, they are to call back with f/u date and time.
--- NOTE | 2022-05-17 14:08 | CARE MANAGER ---
Patient is readmitted to hospital. CONOR Lee
== END 2022-05-15 14:33 | disposition home or self-care (01) | DRG 291 ==
LOC: ER 17:37 → 2ND 18:41
PROVIDERS: Emergency Medicine; Nurse Practitioner Family; Physician Assistant; Admitting Provider Family Medicine; Emergency Provider Emergency Medicine; Visit Provider Family Medicine
DX: I11.0 Hypertensive heart disease with heart failure (principal); I50.23 Acute on chronic systolic (congestive) heart failure; J44.1 Chronic obstructive pulmonary disease with (acute) exacerbation; Z99.81 Dependence on supplemental oxygen; F17.210 Nicotine dependence, cigarettes, uncomplicated; I25.10 Atherosclerotic heart disease of native coronary artery without angina pectoris; E11.9 Type 2 diabetes mellitus without complications; E78.5 Hyperlipidemia, unspecified; I25.2 Old myocardial infarction; G47.33 Obstructive sleep apnea (adult) (pediatric); I42.9 Cardiomyopathy, unspecified; I25.5 Ischemic cardiomyopathy; D64.9 Anemia, unspecified; Z95.810 Presence of automatic (implantable) cardiac defibrillator
CPT/HCPCS: 36415; 71045; 71046; 80048; 80053; 82272; 82962; 83880; 84484; 85007; 85014; 85018; 85025; 86850; 93005; 94640; 94761; 99285; C9803; G0328; G0378; J0456; J0696; P9016; U0003; U0005

== ENCOUNTER 2022-05-16 13:41 | Inpatient (IN) | payer MEDICARE, SELFPAY ==
[2022-05-16] VITALS (19 sets, daily range): BP systolic 93–137; BP diastolic 55–92; PULSE 76–108; RESP 13–28; TEMP 36.5–36.8; O2SAT 3–100; BMI 32.5; BMI 32.4
--- NOTE | 2022-05-16 13:35 | ECG_ITS ---
APPROVED REPORT Exam: Resting ECG HR:107 bpm ECG Measurements Heart Rate 107 AXES QRSd 105 QRS 84 QT 338 T -90 QTc 400 Conclusion ATRIAL FIBRILLATION WITH RAPID VENTRICULAR RESPONSE WITH ABERRANT CONDUCTION OR VENTRICULAR PREMATURE COMPLEXES INFERIOR MYOCARDIAL INFARCTION , OF INDETERMINATE AGE [40+ ms Q WAVE AND/OR ST/T ABNORMALITY IN II/aVF] ANTEROLATERAL MYOCARDIAL INFARCTION , OF INDETERMINATE AGE [40+ ms Q WAVE IN I/aVL/V3-V6] ABNORMAL ECG UNCONFIRMED REPORT Electronically signed by : Khanh Scott MD 05/19/2022 16:30:25
--- NOTE | 2022-05-16 13:43 | XR_ITS ---
FINAL REPORT CLINICAL HISTORY: SOB/CP COMPARISON: May 13, 2022 FINDINGS: There is moderate cardiomegaly. Multiple sternal wires are present. There is a left-sided pacemaker. The mediastinum is normal. There are chronic changes in both lungs. There is blunting of the left costophrenic angle consistent with pleural and parenchymal scarring. There is no pneumothorax. There is no osseous abnormality. IMPRESSION: Chronic findings. No change from prior. Reviewed, Interpreted and Dictated by Russ Herr MD Transcribed by Reji Huynh Authenticated and [facility]
--- NOTE | 2022-05-16 13:44 | HMH.EDCP ---
ED Disposition Clinical Impression: Ventricular fibrillation Disposition: Admitted As Inpatient Condition on Discharge: Fair Referrals: Provider,Referral, [Primary Care Provider] - - Critical Care Critical Care Time: Yes Attestation: On , the high probability of a clinically significant, sudden or life threatening deterioration of the following system(s) required my full and direct attention, intervention and personal management. The time I documented below is in addition to time spent performing reported procedures but includes the following listed in this critical care notation. Total Critical Care Time: 35 Vital system(s) involved:: Circulatory Failure (ventricular fibrillation requring defibrillation and initiation of IV anti-arrhythmic therapy) My critical care processes included: Assessment & monitoring of V/S, Initial and Re-exams, Data Review/Interpretation, Coordinating Care, Medication Orders and management, Documentation Medical Decision Making - Medical Records Medical records reviewed: Yes: I reviewed the patient's medical records. - Carl Inquiry Pt receiving controlled substance: No Vital Signs: 05/16/22 13:42 05/16/22 14:09 05/16/22 14:45 Temperature 97.7 F Temperature Source Oral Pulse Rate 103 H 80 Pulse Rate [Radial] 108 H Respiratory Rate 28 H 16 13 Blood Pressure 107/72 L 100/71 L Blood Pressure [Right Arm] 124/76 Blood Pressure Mean 83 75 Blood Pressure Mean [Right Arm] 92 Blood Pressure Position [Right Arm] Sitting 02 Sat by Pulse Oximetry 93 L 98 100 Oxygen Delivery Method Room Air Room Air 05/16/22 14:55 05/16/22 15:05 05/16/22 15:15 Temperature Temperature Source Pulse Rate 87 92 H 86 Pulse Rate [Radial] Respiratory Rate 17 18 20 Blood Pressure 102/71 L 102/72 L 108/55 L Blood Pressure [Right Arm] Blood Pressure Mean 77 83 72 Blood Pressure Mean [Right Arm] Blood Pressure Position [Right Arm] 02 Sat by Pulse Oximetry 100 100 97 Oxygen Delivery Method - Lab Data Lab results reviewed: Yes: I reviewed the patient's lab results. Lab Results 05/16/22 13:43: WBC 10.3 D, RBC 3.12 L, Hgb 8.8 L, Hct 29.1 L, MCV 93.1, MCH 28.2, MCHC 30.3 L, RDW 20.3 H, Plt Count 316 D, MPV 8.3, Neut % (Auto) 73.5, Lymph % (Auto) 14.8, [place] % (Auto) 10.7 H, Eos % (Auto) 0.6, Baso % (Auto) 0.4, Neut # (Auto) 7.6, Lymph # (Auto) 1.5, [place] # (Auto) 1.1 H, Eos # (Auto) 0.1, Baso # (Auto) 0.0 05/16/22 13:43: Sodium 138, Potassium 2.9 L* D, Chloride 93 L, Carbon Dioxide 39 H, Anion Gap 8.9, BUN 36 H, Creatinine 0.80, Estimated Creat Clear 101, Estimated GFR 95, Est GFR ( Amer) 115, Glucose 89, Calcium 8.8, Magnesium 2.0, Total Bilirubin 1.6 H, AST 51, ALT 45, Alkaline Phosphatase 83, Troponin I 0.68 H, Total Protein 6.6, Albumin 3.7, Globulin 2.9, Albumin/Globulin Ratio 1.3 05/16/22 13:43: SARS-CoV-2 (PCR) Not detected, Influenza A Untype (PCR) Not detected, Influenza Type B (PCR) Not detected Result diagrams: 05/16/22 13:43 05/16/22 13:43 Orders (Tests/Meds): ED MEDICATIONS Generic Name Dose Route Start Last Admin Trade Name Freq PRN Reason Stop Dose Admin Albuterol Sulfate puff 05/16/22 15:37 Albuterol-Hfa 90mcg/Puff Inhaler 8gm IH 06/15/22 15:36 QIDP PRN Shortness Of Breath Or Wheezing Aspirin 81 mg 05/17/22 09:00 Aspirin Ec 81mg Tablet PO 06/16/22 08:59 DAILY KEELEY Atorvastatin Calcium 40 mg 05/17/22 09:00 Atorvastatin 40mg Tablet PO 06/16/22 08:59 DAILY KEELEY Buspirone HCl 20 mg 05/16/22 21:00 Buspirone Hcl 10 Mg Tablet PO 06/15/22 20:59 TID KEELEY Carvedilol 3.125 mg 05/16/22 21:00 Carvedilol 3.125mg Tablet PO 06/15/22 20:59 BID KEELEY Empagliflozin 10 mg 05/17/22 09:00 Empagliflozin 10mg Tablet PO 06/16/22 08:59 DAILY KEELEY Famotidine 20 mg 05/16/22 21:00 Famotidine 20mg Tablet PO 06/15/22 20:59 HS KEELEY Furosemide 80 mg 05/16/22 21:00 Furosemide 80 Mg
--- NOTE | 2022-05-16 13:45 | PC.NURSE ---
called cardiology to interrogate pacemaker/defib
--- NOTE | 2022-05-16 13:57 | PC.NURSE ---
cardiology at bedside
--- NOTE | 2022-05-16 14:00 | PC.NURSE ---
Lin from cardiology at the bedside to interrogate pacemaker
--- NOTE | 2022-05-16 14:11 | PC.NURSE ---
ct at bedside
--- NOTE | 2022-05-16 14:15 | PC.NURSE ---
Ganesh clay at the bedside to speak pt and MD
[2022-05-16 14:16] LABS: Basophils % 0.4 % (0.1-2.0); Eosinophils # 0.1 K/mm3 (0.0-0.4); Eosinophils % 0.6 % (0.1-12.0); Hematocrit 29.1 % (42.0-52.0); Hemoglobin 8.8 g/dL (14.1-18.0); Lymphocytes # 1.5 K/mm3 (0.7-4.5); Lymphocytes % 14.8 % (10-50); Mean Corpuscular HGB Conc 30.3 g/dL (31.8-35.4); Mean Corpuscular Hemoglobin 28.2 pg (27.0-31.2); Mean Corpuscular Volume 93.1 fl (80-94); Mean Platelet Volume 8.3 fl (7.4-10.4); Monocytes # 1.1 K/mm3 (0.1-1.0); Monocytes % 10.7 % (1.7-9.3); Neutrophils # 7.6 K/mm3 (1.8-7.8); Neutrophils % 73.5 % (37.0-80.0); Platelet Count 316 K/mm3 (142-424); Red Blood Count 3.12 M/mm3 (4.60-6.20); Red Cell Distribution Width 20.3 % (11.5-17.5); White Blood Count 10.3 K/mm3 (4.8-10.8)
--- NOTE | 2022-05-16 14:16 | PC.NURSE ---
ct was done
--- NOTE | 2022-05-16 14:17 | PC.NURSE ---
family at bedside updated on plan of care
--- NOTE | 2022-05-16 14:18 | PC.NURSE ---
davin clay calling to speak to
[2022-05-16 14:19] LABS: Alanine Aminotransferase 45 U/L (12-78); Albumin Level 3.7 g/dl (3.5-5.0); Albumin/Globulin Ratio 1.3 (1.1-1.8); Alkaline Phosphatase 83 U/L (38-126); Anion Gap 8.9 mEq/L (5-15); Aspartate Amino Transferase 51 U/L (17-59); Bilirubin,Total 1.6 mg/dl (0.2-1.3); Blood Urea Nitrogen 36 mg/dl (9-20); Calcium 8.8 mg/dl (8.4-10.2); Carbon Dioxide 39 mmol/L (22.0-30.0); Chloride 93 mmol/L (98-107); Creatinine Clearance Estimated 101 mL/min (50-200); Estimated Glomerular Filt Rate 95 ml/min (>60); GFR (African American) 115 ML/MIN (>60); Globulin 2.9 g/dL (1.3-3.2); Glucose 89 mg/dl (74-100); Sodium 138 mmol/L (136-145); Total Protein,Serum 6.6 g/dl (6.3-8.2)
[2022-05-16 14:22] LABS: Potassium 2.9 mmoL/L (3.5-5.1)
--- NOTE | 2022-05-16 14:24 | HMH.CNCARD ---
History of Present Illness Consult date: 05/16/22 Chief complaint: AICD firing Additional Medical History:: 1. Coronary artery disease A. History of 6 vessel bypass 1998, [place], [place] at [facility]. [facility], 02/21/2022 for NSTEMI ANGIOGRAPHIC RESULTS The left main artery Normal The left anterior descending artery Has proximal and mid vessel 50 and 70% stenosis then occluded at mid vessel. The circumflex artery Probably dominant vessel and occluded at mid vessel The right coronary artery Probably nondominant and proximally occluded The ERICKSON ventriculogram reveals Dilated ventricle anterior apical akinesis ejection fraction estimated 20% The left ventricular end-diastolic pressure 10 mmHg FINE to LAD widely patent Saphenous vein graft to circumflex artery has a proximal long eccentric 90% stenosis followed by mid vessel 40 to 50% stenoses Saphenous vein graft to right coronary artery has a proximal valve which gives a 50% angiographic stenosis. Distally there is a concentric 80 to 90% stenosis. The anastomosis has 70% disease in both the anastomosis and andreafski right coronary artery. The right coronary artery itself appears to be a small to moderate amount of myocardium IMPRESSION Coronary artery disease as described above Successful stenting of 2 saphenous vein grafts as described above Severe left ventricular dysfunction with large regional wall motion abnormality which is chronic Normal left ventricular end-diastolic pressure PLAN 1. Dual antiplatelet therapy 2. Standard therapy for systolic heart failure 3. Standard therapy for coronary artery disease/ischemic disease 4. LDL less than 55 to be achieved with high intensity statin 5. Cardiac rehabilitation once over COVID 6. Avoidance of tobacco products Electronically signed by : Сергей Muller MD 02/21/2022 12:46:10 2. Ischemic cardiomyopathy A. Ejection fraction approximately 20% B. Dual-chamber AICD implantation approximately 2007 with battery change in 2016 with a [place] generator model CD [id number], Dr. Krystle Hodges. Echo, 02/2022, 1. Biatrial enlargement, dilated left ventricle, severe reduced left ventricular systolic function, visually estimated ejection fraction 20% with segmental wall motion abnormality described above, diastolic parameters are inconclusive. 2. Moderately enlarged right ventricle with reduced contractility. 3. Moderate mitral and tricuspid regurgitation, calculated right ventricular systolic pressure 48 mmHg. 4. No significant pericardial effusion. 5. Inferior vena cava is dilated without significant inspiratory collapse. Electronically signed by : Randal Mendieta MD 02/20/2022 20:08:21 3. Tobacco use, continued, 1 to 2 packs/day for greater than 40 years 4. Diabetes mellitus, diagnosed approximately 2018 5. History of bilateral knee replacements 6. Hypertension 7. Hyperlipidemia 8. Obstructive sleep apnea, CPAP use 9. AAA-3.1 cm (AUG 2021) A. CT of Abd, 02/2022, 3.5 cm 10. Anemia, recurrent with unknown etiology of GI bleed. Pt has appt with GI on 05/15/2022. A. EGD, 04/05/2022, Gastroesophageal junction at 47 cm from the incisors, Mild gastropathy, No identifiable source of blood loss on upper endoscopy or stigmata of recent bleeding B. Colonoscopy, 04/19/2022, Numerous small polyps. Most of these appeared hyperplastic. Some pigmentation of the periappendiceal mucosa within the cecum which was biopsied. All biopsies negative for carcinoma. 11. Cirrhosis of liver with ascites History of present illness: 72-year-old male, history of coronary artery disease, CHF, remote placement of AICD. He states he was just discharged from the hospital yesterday, after admission for CHF, anemia, states at the time there was not an evident source of blood loss, however today he noticed whenever he had a bowel movement it was black. He has had fairly recent upper and lowe
[2022-05-16 14:26] LABS: Coronavirus 19, PCR Not Detected (NotDetected); Influenza A, PCR Not Detected (NotDetected); Influenza B, PCR Not Detected (NotDetected)
[2022-05-16 14:50] LABS: Troponin I 0.68 ng/ml (0.00-0.034)
--- NOTE | 2022-05-16 15:02 | PC.NURSE ---
called dr kuhn for consult with er doc
--- NOTE | 2022-05-16 15:40 | PC.NURSE ---
notified care management of admission, spoke with jude, pt needs a stepdown room
--- NOTE | 2022-05-16 15:42 | PC.NURSE ---
pt assigned to room 216 per chief transfer and pumphouse operator
--- NOTE | 2022-05-16 15:48 | PC.NURSE ---
gave pt a cup of water
[2022-05-16 15:57] LABS: POC Glucose,Bedside 85 (70-110)
--- NOTE | 2022-05-16 15:57 | PC.NURSE ---
checked on pt at this time, pt sitting up in bed, talking on the phone. Pt reports no needs at this time. Updated pt is assigned to room 216 and that we will get pt to assigned room soon.
--- NOTE | 2022-05-16 16:11 | PC.NURSE ---
REPORT CALLED TO FLOOR
--- NOTE | 2022-05-16 16:14 | PC.NURSE ---
PT GIVEN ORANGE JUICE
--- NOTE | 2022-05-16 16:35 | PC.NURSE ---
Pt arrived to the floor at this time
[2022-05-16 17:27] LABS: Troponin I 0.88 ng/ml (0.00-0.034)
--- NOTE | 2022-05-16 17:51 | PC.NURSE ---
Paged Dr. Scott for critical troponin, awaiting call
--- NOTE | 2022-05-16 19:58 | PC.NURSE ---
Patient admitted on amiodarone drip from ER. Patient alert and oriented and complains of soreness in chest but no chest pressure. VS stable and patient on 2LNC for comfort. Troponin reported to myself as 0.88 which increased from previous. Dr. Scott paged and told of critical, no new orders.
--- NOTE | 2022-05-16 20:49 | PC.NURSE ---
Amiodarone gtt titrated to 16.7 ml/hr.
[2022-05-16 21:48] LABS: POC Glucose,Bedside 122 (70-110)
[2022-05-17] VITALS (10 sets, daily range): BP systolic 96–180; BP diastolic 40–71; PULSE 87–104; RESP 17–22; TEMP 36.4–37.1; O2SAT 94–100; BMI 32.0
--- NOTE | 2022-05-17 04:20 | PC.NURSE ---
Pt remains on Amiodarone gtt @ 16.7 ml/hr. Has tolerated well. HR controlled. BP stable. Pt has diuresed well this shift. Uses urinal with stand by assist. He is currently on 1.5 L O2 NC. Lungs are diminished. No complaints stated. Call light within reach.
[2022-05-17 05:33] LABS: POC Glucose,Bedside 119 (70-110)
--- NOTE | 2022-05-17 07:27 | HMH.PHAVTE ---
[facility] Pharmacy VTE Monitoring - Patient Demographics Admission date: 05/16/22 Report Date: 05/17/22 Time: 07:27 Allergies/Adverse Reactions: Patient Allergies No Known Allergies Allergy (Verified 05/09/22 12:56) Height: 1.83 m Weight: 107.229 kg Patient Problems: Current Active Problems Anemia (Acute) Ventricular fibrillation, paroxysmal (Acute) Ventricular tachycardia (paroxysmal) (Acute) Hypokalemia (Acute) Ventricular fibrillation (Acute) COPD (chronic obstructive pulmonary disease) (Chronic) Abdominal aortic aneurysm (AAA) (Chronic) Hx of CABG (Chronic) Ischemic cardiomyopathy with implantable cardioverter-defibrillator (ICD) (Chronic) Hypertension (Chronic) Hyperlipidemia (Chronic) Diabetes mellitus type 2 in obese (Chronic) - VTE Risk Labs: VTE Related Lab Results Hgb 8.8 g/dL (14.1-18.0) L 05/16/22 13:43 Hct 29.1 % (42.0-52.0) L 05/16/22 13:43 Plt Count 316 K/mm3 (142-424) D 05/16/22 13:43 BUN 36 mg/dl (9-20) H 05/16/22 13:43 Creatinine 0.80 mg/dl (0.66-1.25) 05/16/22 13:43 Estimated Creat Clear 101 mL/min (50-200) 05/16/22 13:43 Was VTE Risk Assessment Performed: Yes VTE Score: 8 VTE Risk Level: Moderate Risk - Prophylaxis VTE Prophylaxis Ordered?: Yes Types of VTE Prophylaxis: TEDS Knee High Location of Applied Device: Bilateral Lower Extremeties
--- NOTE | 2022-05-17 07:28 | HMH.PHAINT ---
MEDICATION RECONCILIATION COMPLETED ON PATIENT USING DISCHARGE SUMMARY FROM PREVIOUS ADMISSION. -SAV BAEZA, OSCARD
[2022-05-17 08:29] LABS: Basophils % 0.2 % (0.1-2.0); Eosinophils # 0.1 K/mm3 (0.0-0.4); Eosinophils % 1.5 % (0.1-12.0); Hematocrit 27.1 % (42.0-52.0); Hemoglobin 8.2 g/dL (14.1-18.0); Lymphocytes # 1.2 K/mm3 (0.7-4.5); Lymphocytes % 16.1 % (10-50); Mean Corpuscular HGB Conc 30.1 g/dL (31.8-35.4); Mean Corpuscular Hemoglobin 28.2 pg (27.0-31.2); Mean Corpuscular Volume 93.5 fl (80-94); Mean Platelet Volume 8.5 fl (7.4-10.4); Monocytes # 0.9 K/mm3 (0.1-1.0); Monocytes % 12.1 % (1.7-9.3); Neutrophils # 5.2 K/mm3 (1.8-7.8); Neutrophils % 70.1 % (37.0-80.0); Platelet Count 303 K/mm3 (142-424); Red Cell Distribution Width 20.1 % (11.5-17.5); White Blood Count 7.4 K/mm3 (4.8-10.8)
[2022-05-17 08:35] LABS: Chloride 94 mmol/L (98-107); Sodium 138 mmol/L (136-145)
[2022-05-17 08:36] LABS: Potassium 3.3 mmoL/L (3.5-5.1)
[2022-05-17 08:38] LABS: Blood Urea Nitrogen 35 mg/dl (9-20); Creatinine Clearance Estimated 100 mL/min (50-200); Estimated Glomerular Filt Rate 95 ml/min (>60); GFR (African American) 115 ML/MIN (>60)
--- NOTE | 2022-05-17 08:38 | HMH.PNCARD ---
Subjective Date: 05/17/22 Time: 08:38 Principal diagnosis: V. Fib with AICD firing, hypokalemia Interval history: 72 yo WF in bed in NAD. No further shocks overnight. chest is sore from shocks. Potassium is 3.3 this AM Hgb 8.2 Telemetry shows A. fib with rate around 100 bpm Amiodarone loading in progress. Will start oral dosing. Will switch coreg to metoprolol for better rate control and less hypotension. Exam Vital signs and Labs for Last 24 Hours: Temp Pulse Resp BP Pulse Ox 98.6 F 100 H 17 97/40 L 94 L 05/17/22 04:00 05/17/22 05:54 05/17/22 04:00 05/17/22 04:00 05/17/22 05:56 Laboratory Results - last 24 hr 05/16/22 13:43: WBC 10.3 D, RBC 3.12 L, Hgb 8.8 L, Hct 29.1 L, MCV 93.1, MCH 28.2, MCHC 30.3 L, RDW 20.3 H, Plt Count 316 D, MPV 8.3, Neut % (Auto) 73.5, Lymph % (Auto) 14.8, Ashley % (Auto) 10.7 H, Eos % (Auto) 0.6, Baso % (Auto) 0.4, Neut # (Auto) 7.6, Lymph # (Auto) 1.5, Ashley # (Auto) 1.1 H, Eos # (Auto) 0.1, Baso # (Auto) 0.0 05/16/22 13:43: Sodium 138, Potassium 2.9 L* D, Chloride 93 L, Carbon Dioxide 39 H, Anion Gap 8.9, BUN 36 H, Creatinine 0.80, Estimated Creat Clear 101, Estimated GFR 95, Est GFR ( Amer) 115, Glucose 89, Calcium 8.8, Magnesium 2.0, Total Bilirubin 1.6 H, AST 51, ALT 45, Alkaline Phosphatase 83, Troponin I 0.68 H, Total Protein 6.6, Albumin 3.7, Globulin 2.9, Albumin/Globulin Ratio 1.3 05/16/22 13:43: SARS-CoV-2 (PCR) Not detected, Influenza A Untype (PCR) Not detected, Influenza Type B (PCR) Not detected 05/16/22 15:49: POC Glucose 85 05/16/22 16:26: Troponin I 0.88 H 05/16/22 21:40: POC Glucose 122 H 05/17/22 05:25: POC Glucose 119 H 05/17/22 08:02: WBC 7.4 D, RBC 2.90 L, Hgb 8.2 L, Hct 27.1 L, MCV 93.5, MCH 28.2, MCHC 30.1 L, RDW 20.1 H, Plt Count 303, MPV 8.5, Neut % (Auto) 70.1, Lymph % (Auto) 16.1, Ashley % (Auto) 12.1 H, Eos % (Auto) 1.5, Baso % (Auto) 0.2, Neut # (Auto) 5.2, Lymph # (Auto) 1.2, Ashley # (Auto) 0.9, Eos # (Auto) 0.1, Baso # (Auto) 0.0 I & O for Last 24 hours: Intake & Output 05/14/22 05/15/22 05/16/22 05/17/22 11:59 11:59 11:59 11:59 Intake Total 360 / 360 Output Total 2605 / 2605 Balance -2245 / -2245 Weight 236 lb 6.4 oz - Constitutional no acute distress - *Routine Respiratory Exam Present: CTA bilaterally - *Routine Cardiovascular Exam Present: tachycardia, irregularly irregular - *Routine Extremities Exam Present: edema. Absent: cyanosis, clubbing Progress Note: A&P (1) Ventricular fibrillation, paroxysmal Status: Acute (2) Ventricular tachycardia (paroxysmal) Status: Acute (3) Hypokalemia Status: Acute (4) Anemia Status: Acute (5) Abdominal aortic aneurysm (AAA) Problem details: 3.1 CM AUG 2021. Status: Chronic (6) COPD (chronic obstructive pulmonary disease) Status: Chronic (7) Diabetes mellitus type 2 in obese Status: Chronic (8) Hx of CABG Problem details: 6 vessel (1998) Status: Chronic (9) Hyperlipidemia Status: Chronic (10) Hypertension Status: Chronic (11) Ischemic cardiomyopathy with implantable cardioverter-defibrillator (ICD) Status: Chronic Assessment and Plan for All Diagnoses:: 1. Paroxysmal VF/VT with multiple AICD firings. Likely related to hypokalemia, anemia and recent reduction of beta isa therapy due to hypotension. Switch IV amio to oral. Switch coreg to metoprolol. 2. Recurrent anemia with black stools noted prior to this admission. Recent upper and lower endoscopy without etiology. Patient needs tagged red cell study to identify source. Defer to PCP/[place] hospital. 3. Atrial fibrillation/MAT noted on EKG. Unable to anticoagulate due to GI bleed and frequent anemia requiring blood transfusion. Monitor after amiodarone therapy. 4. Ischemic cardiomyopathy with EF 20%, AICD in situ. Continue lisinopril and beta isa. 5. History of hypertension, controlled and continue to monitor. 6. Diabetes mellitus, treatment per PCP. 7
[2022-05-17 08:39] LABS: Anion Gap 9.3 mEq/L (5-15); Carbon Dioxide 38 mmol/L (22.0-30.0)
[2022-05-17 08:45] LABS: Calcium 8.6 mg/dl (8.4-10.2); Glucose 142 mg/dl (74-100)
--- NOTE | 2022-05-17 08:49 | SW/DCPLANNER ---
I spoke with patient regarding plans once medically stable for discharge this AM. Patient stated that he is not interested in any home health services at time of discharge. Patient resides at home with assistance from family. Patient should discharge home later today.
--- NOTE | 2022-05-17 13:05 | HMH.HPDC ---
General - General Admission date:: 05/16/22 Discharge date: 05/17/22 *Admission Date: 05/16/22 *Chief complaint: Chest Pain *History of present illness: 72-year-old male, history of coronary artery disease, CHF, remote placement of AICD. He states he was just discharged from the hospital yesterday, after admission for CHF, anemia, states at the time there was not an evident source of blood loss, however today he noticed whenever he had a bowel movement it was black. He has had fairly recent upper and lower endoscopy, within the past 3 months. He was planned to have tagged red cell study. Currently denies any chest pain, he states about 10 episodes today, he would see flashes, feel near syncopal, and then feel like he was kicked in the chest by a horse, was concerned about firing of his AICD. States he was previously on anticoagulant however that was discontinued on recent hospitalization. Additionally his beta-isa has been decreased due to relative hypotension. He is not currently on any antiarrhythmic. We are able to interrogate AICD which demonstrated 63 distinct runs of ventricular tachycardia only a few of which were sustained, and he was defibrillated out of those episodes. Evaluated bedside by cardiology team who advised initiation of amiodarone bolus and infusion, and will anticipate admission (Per Dr. Ruth) [facility] History I have reviewed the patient's past medical history: Yes Medical History: Reports:: Aneurysm, Atrial Fibrillation, Congestive Heart Failure, Chronic Obstructive Pulmonary Disease (COPD), Congenital Heart Disease, Coronary Artery Disease, Diabetes Mellitus Type 2, Hyperlipidemia, Hypertension, Myocardial Infarction, Renal Insufficiency Denies:: Cancer, Diabetes Mellitus Type 1, Internal Pacemaker, MRSA, Seizures *Have you ever received a pneumonia vaccine?: Yes *Have you received a flu vaccine this season?: Yes Other Medical History: Reports: Anemia, Arthritis Other Surgeries: Yes: No Previous Surgery, CABG, Cardiac Catheterization, Cardiac Surgery, Colonoscopy, Coronary Stent, Open Heart Surgery. No: Pacemaker Amputation: No Fractures: No - *Social History Smoking Status: Current every day smoker Tobacco Type: cigarettes # Packs/Day (cigarettes): 1 Alcohol Intake: never Substance Use Type: denies use *Occupational Status:: retired Housing: house Household Members: children *Travel in the last 8 weeks: Inside the [facility] Family Hx:: No significant family history Review of Systems - Review of Systems Review of systems:: pertinent systems reviewed and negative unless documented below - Constitutional Denies anorexia, Denies body ache(s), Denies fever(s) - Eyes Denies blurry vision, Denies double vision - ENT Denies dizziness, Denies difficulty swallowing - *Cardiovascular Reports chest pain - *Gastrointestinal Reports change in stools, Reports black, tarry stools, Denies abdominal pain - *Musculoskeletal Denies joint pain, Denies muscle cramps, Denies muscle weakness - Integumentary/Breasts Denies change in skin color, Denies changing lesions - *Neurologic Denies confusion, Denies dizziness, Denies headache(s) - Psychiatric Denies hearing things others do not hear, Denies confusion - Endocrine Denies cold intolerance, Denies increased thirst - Hematologic/Lymphatic Denies easy bleeding, Denies enlarged lymph nodes - Allergic/Immunologic Denies GI upset with certain foods, Denies tongue swelling Exam Vital signs and Labs for Last 24 Hours: Temp Pulse Resp BP Pulse Ox 97.6 F 104 H 19 118/70 99 05/17/22 08:00 05/17/22 10:00 05/17/22 10:00 05/17/22 10:00 05/17/22 10:00 Laboratory Results - last 24 hr 05/16/22 13:43: WBC 10.3 D, RBC 3.12 L, Hgb 8.8 L, Hct 29.1 L, MCV 93.1, MCH 28.2, MCHC 30.3 L, RDW 20.3 H, Plt Count 316 D, MPV 8.3, Neut % (Auto) 73.5, Lymph % (Auto) 14.8, [place] % (Auto) 10.7 H, Eos % (Auto) 0.6, Baso % (
--- NOTE | 2022-05-17 15:25 | PC.NURSE ---
rounded on patient no concerns or questions noted. assisted with urinal. encouraged him to ring out as needed.
--- NOTE | 2022-05-20 15:15 | CARE MANAGER ---
Attempted follow-up phone call with patient, no answer.
== END 2022-05-17 16:49 | disposition home or self-care (01) | DRG 310 ==
LOC: ER 15:44 → 2ND 15:54
PROVIDERS: Physician Assistant; Admitting Provider Family Medicine; Emergency Provider Emergency Medicine; Visit Provider Family Medicine
DX: I49.01 Ventricular fibrillation (principal); I47.2 Ventricular tachycardia; I25.10 Atherosclerotic heart disease of native coronary artery without angina pectoris; Z95.810 Presence of automatic (implantable) cardiac defibrillator; E11.8 Type 2 diabetes mellitus with unspecified complications; E78.5 Hyperlipidemia, unspecified; I10 Essential (primary) hypertension; I25.2 Old myocardial infarction; J44.9 Chronic obstructive pulmonary disease, unspecified; Z95.5 Presence of coronary angioplasty implant and graft; I71.4 Abdominal aortic aneurysm, without rupture; E87.6 Hypokalemia; Z79.84 Long term (current) use of oral hypoglycemic drugs; I48.91 Unspecified atrial fibrillation; F17.210 Nicotine dependence, cigarettes, uncomplicated; I25.5 Ischemic cardiomyopathy; D64.9 Anemia, unspecified; Z79.4 Long term (current) use of insulin
CPT/HCPCS: 36415; 71045; 80048; 80053; 82962; 83735; 84484; 85025; 93005; 94640; 94760; 94761; 99291; C9803; J0282; J7060; U0003; U0005